=== PATIENT | female | born 1960 | race African-American/Black ===

== ENCOUNTER 2017-02-09 07:42 | Emergency (ER) | payer BC ==
[2017-02-09] MEDS ORDERED: LIDOCAINE 5% (700 MG) TRANSDERMAL ADH..PATCH TP ONE (08:38)
--- NOTE | 2017-02-09 08:38 | ER Document Report ---
ED General - General Chief Complaint: Knee Pain Stated Complaint: RIGHT KNEE PAIN/INJURY TRAVEL OUTSIDE OF THE [place] IN LAST 30 DAYS: No - HPI Patient complains to provider of: right knee pain Notes: Patient states she was walking in her house today when she hit the door to her oven causing her to have some pain in her right knee. Patient also has a slight abrasion this patient states continues to bleed. Upon my evaluation patient patient is sitting with her right leg elevated - Related Data Allergies/Adverse Reactions: aspirin [Aspirin] Allergy (Verified 02/09/17 07:47) STOMACH PAIN ibuprofen [From Motrin] Allergy (Verified 02/09/17 07:47) STOMACH PAIN iodine [Iodine] Allergy (Verified 02/09/17 07:47) Hives morphine [Morphine] Allergy (Verified 02/09/17 07:47) Generalized Itching acetaminophen [From Percocet] Adverse Reaction (Verified 02/09/17 07:47) Hallucinations meloxicam [From Mobic] Adverse Reaction (Verified 02/09/17 07:47) STOMACH PAIN oxycodone [From Percocet] Adverse Reaction (Verified 02/09/17 07:47) Hallucinations ivp dye Allergy (Uncoded 02/09/17 07:47) Hives Past Medical History - Social History Smoking Status: Current Every Day Smoker Chew tobacco use (# tins/day): No Frequency of alcohol use: None Drug Abuse: None Family History: Reviewed & Not Pertinent, CAD - Past Medical History Cardiac Medical History: Reports: Hx Hypercholesterolemia Denies: Hx Coronary Artery Disease, Hx Heart Attack, Hx Hypertension Pulmonary Medical History: Reports: Hx Bronchitis Denies: Hx Asthma, Hx COPD, Hx Pneumonia Neurological Medical History: Denies: Hx Cerebrovascular Accident, Hx Seizures Renal/ Medical History: Denies: Hx Peritoneal Dialysis GI Medical History: Reports: Hx Gastroesophageal Reflux Disease Musculoskeltal Medical History: Denies Hx Arthritis Psychiatric Medical History: Denies: Hx Depression Past Surgical History: Reports: Hx Appendectomy, Hx Breast Surgery - biopsy x 3 , Hx Cholecystectomy, Hx Hysterectomy - Immunizations Hx Diphtheria, Pertussis, Tetanus Vaccination: Yes Review of Systems - Review of Systems Constitutional: No symptoms reported EENT: No symptoms reported Cardiovascular: No symptoms reported Respiratory: No symptoms reported Gastrointestinal: No symptoms reported Genitourinary: No symptoms reported Female Genitourinary: No symptoms reported Musculoskeletal: Other - Right knee pain Skin: No symptoms reported Hematologic/Lymphatic: No symptoms reported Neurological/Psychological: No symptoms reported Physical Exam - Vital signs Vitals: Temp Pulse Resp BP Pulse Ox 98.1 F 83 24 H 150/75 H 97 02/09/17 07:46 02/09/17 07:46 02/09/17 07:46 02/09/17 07:46 02/09/17 07:46 Interpretation: Normal - General General appearance: Appears well, Alert - HEENT Head: Normocephalic, Atraumatic Eyes: Normal Pupils: PERRL - Respiratory Respiratory status: No respiratory distress Chest status: Nontender Breath sounds: Normal Chest palpation: Normal - Cardiovascular Rhythm: Regular Heart sounds: Normal auscultation Murmur: No - Abdominal Inspection: Normal Distension: No distension Bowel sounds: Normal Tenderness: Nontender Organomegaly: No organomegaly - Back Back: Normal, Nontender - Extremities General upper extremity: Normal inspection, Nontender, Normal color, Normal ROM , Normal temperature General lower extremity: Nontender, Normal color, Normal ROM, Normal temperature , Normal weight bearing. No: Normal inspection - Patient with a 1 cm laceration /abrasion superficial at the inferior end of the patella above the patella tendon with no active bleeding at this time, Ron's sign - Neurological Neuro grossly intact: Yes Cognition: Normal Orientation: AAOx4 [place] Coma Scale Eye Opening: Spontaneous [place] Coma Scale Verbal: Oriented Karen Coma Scale Motor: Obeys Commands [place] Coma Scale Total: 15 Speech: Normal Motor strength normal: LUE, RUE, LLE, RLE Sensory: Normal - Psychological Associated symptoms: Normal affect, Normal mood - Skin Skin Temperature: Warm Skin Moisture: Dry Skin Color: Normal Course - Re-evaluation Re-evalutation: 02/09/17 16:01 Patient able to ambulate no signs of any significant pathology patient will be discharged home - Vital Signs Vital signs: Temp Pulse Resp BP Pulse Ox 98.1 F 76 18 146/60 H 98 02/09/17 07:46 02/09/17 08:55 02/09/17 08:55 02/09/17 08:55 02/09/17 08:55 Discharge - Discharge Clinical Impression: Abrasion of right knee Qualifiers: Encounter type: initial encounter Qualified Code(s): S80.211A - Abrasion, right knee, initial encounter Right knee injury Qualifiers: Encounter type: initial encounter Qualified Code(s): S89.91XA - Unspecified injury of right lower leg, initial encounter Condition: Good Disposition: HOME, SELF-CARE Instructions: Abrasions ([facility]) Additional Instructions: Please continue to apply antibiotic ointment to the abrasion.
[2017-02-09 08:57] VITALS: BP 146/60
== END 2017-02-09 08:55 | disposition home or self-care (01) ==
LOC: ER 07:42
DX: S80.211A Abrasion, right knee, initial encounter (principal); S89.91XA Unspecified injury of right lower leg, initial encounter; M25.561 Pain in right knee; X58.XXXA Exposure to other specified factors, initial encounter; F17.200 Nicotine dependence, unspecified, uncomplicated
CPT/HCPCS: 99283

== ENCOUNTER 2017-09-14 04:38 | Emergency (ER) | payer BC ==
[2017-09-14] MEDS ORDERED: HYDROMORPHONE HCL INJ/PF 2 MG/ML AMPULE IV ONE (05:13)
[2017-09-14] MEDS ORDERED: ONDANSETRON HCL INJ/PF 4 MG/2 ML SDV IV ONE (05:14)
[2017-09-14] MEDS ORDERED: NORMAL SALINE 1000 ML 1,000 ML IV ONE (05:15)
[2017-09-14 05:20] LABS: ABSOLUTE BASOPHILS # (AUTO) 0.1 10^3/uL (0.0-0.2); ABSOLUTE EOSINOPHILS # (AUTO) 0.1 10^3/uL (0.0-0.6); ABSOLUTE MONOCYTES (AUTO) 0.6 10^3/uL (0.1-1.4); ABSOLUTE NEUT (AUTO) 3.8 10^3/uL (1.7-8.2); BASOPHILS % (AUTO) 1.2 % (0-2); EOSINOPHILS % (AUTO) 1.7 % (0-6); HEMATOCRIT 39.9 % (36.0-47.0); HEMOGLOBIN 13.6 g/dL (12.0-15.5); HGB HCT DIFFERENCE 0.9; LYMPHOCYTES % (AUTO) 46.6 % (13-45); MEAN CORPUSCULAR HEMOGLOBIN 28.8 pg (27.0-33.4); MEAN CORPUSCULAR HGB CONC 34.2 g/dL (32.0-36.0); MEAN CORPUSCULAR VOLUME 84 fl (80-97); MONOCYTES % (AUTO) 6.6 % (3-13); RED BLOOD COUNT 4.73 10^6/uL (3.72-5.28); SEGMENTED NEUTROPHILS % (AUTO) 43.9 % (42-78); WHITE BLOOD COUNT 8.7 10^3/uL (4.0-10.5)
[2017-09-14 05:40] LABS: ALANINE AMINOTRANSFERASE 24 U/L (9-52); ALBUMIN 4.5 g/dL (3.5-5.0); ALKALINE PHOSPHATASE 152 U/L (38-126); ANION GAP 13 (5-19); ASPARTATE AMINO TRANSFERASE 22 U/L (14-36); BILIRUBIN,DIRECT 0.3 mg/dL (0.0-0.4); BILIRUBIN,TOTAL 0.4 mg/dL (0.2-1.3); BLOOD UREA NITROGEN 18 mg/dL (7-20); CARBON DIOXIDE 23 mmol/L (22-30); CHLORIDE 107 mmol/L (98-107); CREATININE RESULT 0.87 mg/dL (0.52-1.25); GLUCOSE 110 mg/dL (75-110); LIPASE 430.2 U/L (23-300); POTASSIUM 4.5 mmol/L (3.6-5.0); SODIUM 142.5 mmol/L (137-145); TOTAL PROTEIN 7.9 g/dL (6.3-8.2)
--- NOTE | 2017-09-14 06:54 | ER Document Report ---
ED General - General Chief Complaint: Epigastric Pain Stated Complaint: ABDOMINAL PAIN Time Seen by Provider: 09/14/17 05:01 Mode of Arrival: Ambulatory Information source: Patient Notes: Patient is a 57-year-old female comes emergency room complaining of "pancreatic pain. Patient states she has a history of pancreatitis last bout was approximately 2 years ago. States this 1 has been developing for the past 2 days and has progressively gotten worse to where she had a hard time keeping foods down. TRAVEL OUTSIDE OF THE [place] IN LAST 30 DAYS: No - HPI Patient complains to provider of: Abdominal discomfort Onset/Duration: Gradual, Constant Quality of pain: Achy Severity: Moderate Pain Level: 2 Associated symptoms: Nausea, Vomiting Exacerbated by: Food Relieved by: Other - N.p.o. Similar symptoms previously: Yes Recently seen / treated by doctor: No - Related Data Allergies/Adverse Reactions: aspirin [Aspirin] Allergy (Verified 09/14/17 04:40) STOMACH PAIN ibuprofen [From Motrin] Allergy (Verified 09/14/17 04:40) STOMACH PAIN iodine [Iodine] Allergy (Verified 09/14/17 04:40) Hives morphine [Morphine] Allergy (Verified 09/14/17 04:40) Generalized Itching acetaminophen [From Percocet] Adverse Reaction (Verified 09/14/17 04:40) Hallucinations meloxicam [From Mobic] Adverse Reaction (Verified 09/14/17 04:40) STOMACH PAIN oxycodone [From Percocet] Adverse Reaction (Verified 09/14/17 04:40) Hallucinations ivp dye Allergy (Uncoded 02/09/17 07:47) Hives Past Medical History - General Information source: Patient - Social History Smoking Status: Current Every Day Smoker Frequency of alcohol use: None Drug Abuse: None Lives with: Alone Family History: Reviewed & Not Pertinent, CAD Patient has suicidal ideation: No Patient has homicidal ideation: No - Past Medical History Cardiac Medical History: Reports: Hx Hypercholesterolemia Denies: Hx Coronary Artery Disease, Hx Heart Attack, Hx Hypertension Pulmonary Medical History: Reports: Hx Bronchitis Denies: Hx Asthma, Hx COPD, Hx Pneumonia Neurological Medical History: Denies: Hx Cerebrovascular Accident, Hx Seizures Renal/ Medical History: Denies: Hx Peritoneal Dialysis GI Medical History: Reports: Hx Gastroesophageal Reflux Disease Musculoskeltal Medical History: Denies Hx Arthritis Psychiatric Medical History: Denies: Hx Depression Past Surgical History: Reports: Hx Appendectomy, Hx Breast Surgery - biopsy x 3 , Hx Cholecystectomy, Hx Hysterectomy - Immunizations Hx Diphtheria, Pertussis, Tetanus Vaccination: Yes Review of Systems - Review of Systems Constitutional: No symptoms reported EENT: See HPI Cardiovascular: No symptoms reported Respiratory: No symptoms reported Gastrointestinal: Abdominal pain, Nausea, Vomiting, Poor appetite Genitourinary: No symptoms reported Female Genitourinary: No symptoms reported Musculoskeletal: No symptoms reported Skin: No symptoms reported Hematologic/Lymphatic: No symptoms reported Neurological/Psychological: No symptoms reported -: Yes All other systems reviewed and negative Physical Exam - Vital signs Vitals: Temp Pulse Resp BP Pulse Ox 97.8 F 81 20 157/66 H 98 09/14/17 04:40 09/14/17 04:40 09/14/17 04:40 09/14/17 04:40 09/14/17 04:40 - General General appearance: Appears well, Alert In distress: None - HEENT Head: Normocephalic, Atraumatic Mucous membranes: Dry - Respiratory Respiratory status: No respiratory distress Chest status: Nontender Breath sounds: Normal Chest palpation: Normal - Cardiovascular Rhythm: Regular Heart sounds: Normal auscultation Murmur: No - Abdominal Distension: No distension Bowel sounds: Normal Tenderness: Tender, Other - Examination the abdomen shows patient has some mild tenderness increase in left upper quadrant and left side as compared to the right. History of appendectomy partial hysterectomy and cystectomy - Genitourinary External exam: Normal - Back Back: Normal, Nontender - Neurological Cognition: Normal Orientation: AAOx4 Karen Coma Scale Eye Opening: Spontaneous Karen Coma Scale Verbal: Oriented Karen Coma Scale Motor: Obeys Commands Karen Coma Scale Total: 15 Speech: Normal Course - Re-evaluation Re-evalutation: 09/14/17 06:55 Patient improved dramatically on pain medications and called her friend him take her home. Her lipase is only slightly elevated above [address] it with Dr. Gabriel and agrees that at this point with patient feeling better nausea under control pain much better we can syndrome as an outpatient trial. I discussed this with the patient as well she is in total agreement. I will send her home on 2 nausea medications with the Zofran and promethazine and give her some pain medication. She will keep on clear liquids for the next 48 hours and will return if she gets worse. - Vital Signs Vital signs: Temp Pulse Resp BP Pulse Ox 97.6 F 63 18 111/52 L 95 09/14/17 07:01 09/14/17 07:01 09/14/17 07:01 09/14/17 07:01 09/14/17 07:01 - Laboratory Result Diagrams: 09/14/17 05:12 09/14/17 05:12 Laboratory results interpreted by me: 09/14/17 09/14/17 05:12 05:12 Lymphocytes % 46.6 H Alkaline Phosphatase 152 H Lipase 430.2 H Discharge - Discharge Clinical Impression: Abdominal pain Qualifiers: Abdominal location: left upper quadrant Qualified Code(s): R10.12 - Left upper quadrant pain Pancreatitis Qualifiers: Chronicity: acute Pancreatitis type: biliary Acute pancreatitis complication: unspecified Qualified Code(s): K85.10 - Biliary acute pancreatitis without necrosis or infection Disposition: HOME, SELF-CARE Instructions: Abdominal Pain ([facility]), Pancreatitis ([facility]) Additional Instructions: Home and rest. As we discussed you just have a slight elevation in her lipase really difficult to collect full-blown pancreatitis. This point was sent home on some antinausea medication pain medication. Clear liquids for the next 48 hours as we discussed and is also we have discussed return to ER if you have increasing pain increasing vomiting or unable to keep food or fluids down. Prescriptions: Ondansetron [Zofran Odt 4 mg Tablet] 1 - 2 tab PO Q4HP PRN #20 tab.rapdis PRN Reason: Oxycodone HCl/Acetaminophen [Percocet 7.5-325 mg Tablet] 1 each PO Q6 PRN #15 tablet PRN Reason: Promethazine HCl 25 mg PO Q4 #20 tablet Forms: Elevated Blood Pressure
[2017-09-14 07:02] VITALS: BP 111/52
[2017-09-14 07:07] LABS: APPEARANCE,URINE CLEAR; BILIRUBIN,URINE NEGATIVE (NEGATIVE); GLUCOSE, URINE NEGATIVE (NEGATIVE); KETONES,URINE NEGATIVE (NEGATIVE); LEUKOCYTE ESTERASE,URINE NEGATIVE (NEGATIVE); NITRITE,URINE NEGATIVE (NEGATIVE); PROTEIN,URINE NEGATIVE (NEGATIVE); URINE SPECIFIC GRAVITY 1.015; UROBILINOGEN,URINE NEGATIVE mg/dL (<2.0)
--- NOTE | 2017-09-14 13:45 | EKG REPORT ---
SEVERITY:- ABNORMAL ECG - SINUS RHYTHM PROMINENT P WAVES, NONDIAGNOSTIC LVH WITH SECONDARY REPOLARIZATION ABNORMALITY BORDERLINE PROLONGED QT INTERVAL : Confirmed by: Lee Corona 14-Sep-2017 13:45:28
== END 2017-09-14 07:04 | disposition home or self-care (01) ==
LOC: ER 04:38
DX: K85.10 Biliary acute pancreatitis without necrosis or infection (principal); R10.12 Left upper quadrant pain; R10.13 Epigastric pain
CPT/HCPCS: 93005; 99284; 96361; 96374; 96375; 36415; 83690; 85025; 80053; 81001; 93010; J1170; J2405; J7030

== ENCOUNTER → 2018-06-13 | Outpatient (CLI) | payer BC ==
--- NOTE | 2018-06-13 10:31 | RADIOLOGY REPORT (SQ) ---
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 TECHNIQUE: Dynamic and static ye-scale images acquired of the thyroid gland. Selected additional c olor/power Doppler images recorded. All images stored to PACS. LIMITATIONS: None. FINDINGS: RIGHT LOBE: 3.7 cm Homogeneous echotexture. Small colloid cysts. Largest under 5 mm. LEFT LOBE: 3.7 cm Homogeneous echotexture. Small colloid cysts. ISTHMUS: Normal size. Homogeneous echotexture. No cystic or solid masses. OTHER: No other significant finding. IMPRESSION: Normal size gland. Small colloid cyst. TECHNICAL DOCUMENTATION: JOB ID: [id number] [employer]- All Rights Reserved Reading location - IP/workstation name: [email or web address]
== END ==
LOC: RAD 09:07
PROVIDERS: ATTEND Internal Medicine
DX: E04.9 Nontoxic goiter, unspecified (principal)
CPT/HCPCS: 76536

== ENCOUNTER → 2018-06-13 | Outpatient (CLI) | payer BC ==
[2018-06-13 10:25] LABS: ABSOLUTE EOSINOPHILS # (AUTO) 0.1 10^3/uL (0.0-0.6); ABSOLUTE LYMPHOCYTES (AUTO) 2.8 10^3/uL (0.5-4.7); ABSOLUTE MONOCYTES (AUTO) 0.3 10^3/uL (0.1-1.4); ABSOLUTE NEUT (AUTO) 2.2 10^3/uL (1.7-8.2); BASOPHILS % (AUTO) 0.7 % (0-2); EOSINOPHILS % (AUTO) 2.7 % (0-6); HEMATOCRIT 41.1 % (36.0-47.0); HEMOGLOBIN 13.6 g/dL (12.0-15.5); LYMPHOCYTES % (AUTO) 51.3 % (13-45); MEAN CORPUSCULAR HEMOGLOBIN 27.5 pg (27.0-33.4); MEAN CORPUSCULAR HGB CONC 33.2 g/dL (32.0-36.0); MEAN CORPUSCULAR VOLUME 83 fl (80-97); MONOCYTES % (AUTO) 5.9 % (3-13); PLATELET COUNT 323 10^3/uL (150-450); RED BLOOD COUNT 4.96 10^6/uL (3.72-5.28); RED CELL DISTRIBUTION WIDTH 14.1 % (11.5-14.0); SEGMENTED NEUTROPHILS % (AUTO) 39.4 % (42-78); TOTAL CELLS COUNTED % (AUTO) 100 %; WHITE BLOOD COUNT 5.5 10^3/uL (4.0-10.5)
[2018-06-13 10:36] LABS: ALANINE AMINOTRANSFERASE 26 U/L (9-52); ALBUMIN 4.2 g/dL (3.5-5.0); ALKALINE PHOSPHATASE 140 U/L (38-126); ANION GAP 11 (5-19); ASPARTATE AMINO TRANSFERASE 23 U/L (14-36); BILIRUBIN,DIRECT 0.3 mg/dL (0.0-0.4); BILIRUBIN,TOTAL 0.4 mg/dL (0.2-1.3); BLOOD UREA NITROGEN 16 mg/dL (7-20); CALCIUM 10.1 mg/dL (8.4-10.2); CARBON DIOXIDE 27 mmol/L (22-30); CHLORIDE 107 mmol/L (98-107); GLUCOSE 110 mg/dL (75-110); POTASSIUM 4.5 mmol/L (3.6-5.0); SODIUM 144.6 mmol/L (137-145); TOTAL PROTEIN 7.8 g/dL (6.3-8.2)
[2018-06-13 10:49] LABS: FREE T3 3.85 pg/mL (2.77-5.27); FREE T4 (FREE THYROXINE) 1.04 ng/dL (0.78-2.19)
[2018-06-13 11:03] LABS: THYROID STIMULATING HORMONE 1.16 uIU/mL (0.47-4.68)
[2018-06-13 11:22] LABS: ERYTHROCYTE SEDIMENTATION RATE 16 mm/hr (0-30)
== END ==
LOC: LAB 09:58
PROVIDERS: ATTEND Internal Medicine
DX: Z68.39 Body mass index [BMI] 39.0-39.9, adult (principal)
CPT/HCPCS: 36415; 80053; 83036; 84439; 84443; 84481; 85025; 85652

== ENCOUNTER 2018-08-31 23:20 | Emergency (ER) | payer BC ==
--- NOTE | 2018-08-31 23:52 | ER Document Report ---
ED GI/ - General Mode of Arrival: Ambulatory Information source: Patient TRAVEL OUTSIDE OF THE [place] IN LAST 30 DAYS: No <CELENA FALL - Last Filed: 09/01/18 01:00> <GABE CORDERO - Last Filed: 09/01/18 02:25> - General Chief Complaint: Abdominal Pain Stated Complaint: ABDOMINAL PAIN Time Seen by Provider: 08/31/18 23:42 Notes: Patient is a 58-year-old female who presents to the emergency department today with complaints of upper abdominal pain with associated nausea which began 3 days ago. Patient states she has a history of chronic pancreatitis. Patient states she last had alcohol approximately 3 weeks ago. Patient mentions that she had diarrhea last week but has not had any this week. Patient denies anything unusual about her epigastric abdominal pain stating it feels like her usual pancreatitis. (CELENA FALL) - Related Data Allergies/Adverse Reactions: aspirin [Aspirin] Allergy (Verified 09/25/17 10:12) STOMACH PAIN ibuprofen [From Motrin] Allergy (Verified 09/25/17 10:12) STOMACH PAIN iodine [Iodine] Allergy (Verified 09/25/17 10:12) Hives morphine [Morphine] Allergy (Verified 09/25/17 10:12) Generalized Itching acetaminophen [From Percocet] Adverse Reaction (Verified 09/25/17 10:12) Hallucinations meloxicam [From Mobic] Adverse Reaction (Verified 09/25/17 10:12) STOMACH PAIN ivp dye Allergy (Uncoded 09/25/17 10:12) Hives Past Medical History - General Information source: Patient - Social History Smoking Status: Current Every Day Smoker Cigarette use (# per day): Yes Frequency of alcohol use: Occasional Drug Abuse: None Lives with: Family Family History: Reviewed & Not Pertinent, CAD - Past Medical History Cardiac Medical History: Reports: Hx Hypercholesterolemia Pulmonary Medical History: Reports: Hx Bronchitis GI Medical History: Reports: Hx Gastroesophageal Reflux Disease, Hx Pancreatitis - chronic Past Surgical History: Reports: Hx Appendectomy, Hx Breast Surgery - biopsy x 3 , Hx Cholecystectomy, Hx Hysterectomy - Immunizations Hx Diphtheria, Pertussis, Tetanus Vaccination: Yes <CELENA FALL - Last Filed: 09/01/18 01:00> Review of Systems - Review of Systems Constitutional: No symptoms reported EENT: No symptoms reported Cardiovascular: No symptoms reported Respiratory: No symptoms reported Gastrointestinal: See HPI, Abdominal pain, Diarrhea - last week, Nausea. denies : Blood in vomit Genitourinary: No symptoms reported Female Genitourinary: No symptoms reported Musculoskeletal: No symptoms reported Skin: No symptoms reported Hematologic/Lymphatic: No symptoms reported Neurological/Psychological: No symptoms reported -: Yes All other systems reviewed and negative <CELENA FALL - Last Filed: 09/01/18 01:00> Physical Exam <CELENA FALL - Last Filed: 09/01/18 01:00> <GABE CORDERO - Last Filed: 09/01/18 02:25> - Vital signs Vitals: Temp Pulse Resp BP Pulse Ox 98.6 F 72 20 136/48 H 95 08/31/18 23:25 08/31/18 23:25 08/31/18 23:25 08/31/18 23:25 08/31/18 23:25 - Notes Notes: PHYSICAL EXAM GENERAL: Alert, interacts well. No acute distress. HEAD: Normocephalic, atraumatic. EYES: Pupils equal, round, and reactive to light. Extraocular movements intact. ENT: Oral mucosa moist, tongue midline. NECK: Full range of motion. Supple. Trachea midline. LUNGS: Clear to auscultation bilaterally, no wheezes, rales, or rhonchi. No respiratory distress. HEART: Regular rate and rhythm. 1/6 systolic ejection murmur. No gallops or rubs. ABDOMEN: Soft, epigastric tenderness with palpation. Non-distended. Bowel sounds present in all 4 quadrants. No guarding, rigidity, or rebound. EXTREMITIES: Moves all 4 extremities spontaneously. No edema, radial and dorsalis pedis pulses 2/4 bilaterally. No cyanosis. NEUROLOGICAL: Alert and oriented x3. Normal speech. PSYCH: Normal affect, normal mood. SKIN: Warm, dry, normal turgor. No rashes or lesions noted. (CELENA FALL) Course - Laboratory Result Diagrams: 09/01/18 00:12 09/01/18 00:12 <CELENA FALL - Last Filed: 09/01/18 01:00> - Laboratory Result Diagrams: 09/01/18 00:12 09/01/18 00:12 <GABE CORDERO - Last Filed: 09/01/18 02:25> - Re-evaluation Re-evalutation: 09/01/18 01:33 CBC unremarkable, CMP shows slightly elevated BUN at 23, cardiac enzymes negative, lipase normal at 292.3, troponin negative, EKG is unchanged from prior patient has had no further vomiting here, states she feels significantly better after pain medication, fluids and antinausea medication. Patient will be trialed on grape juice and if she is able to tolerate this discharged home with pain medication and nausea medication. Counseled on chronic pancreatitis diet. 09/01/18 02:19 Urinalysis has trace leukocyte esterase, symptoms not consistent with urinary tract infection, sent for culture. Discharge to home with antiemetics and Vicodin. (GABE CORDERO) - Vital Signs Vital signs: Temp Pulse Resp BP Pulse Ox 98.6 F 72 20 136/48 H 95 08/31/18 23:25 08/31/18 23:25 08/31/18 23:25 08/31/18 23:25 08/31/18 23:25 - Laboratory Laboratory results interpreted by me: 09/01/18 09/01/18 09/01/18 00:12 00:12 01:33 RDW 15.3 H Lymphocytes % 45.9 H BUN 23 H Est GFR ( Amer) 54 L Est GFR (Non-Af Amer) 45 L Glucose 119 H Calcium 10.3 H Ur Leukocyte Esterase TRACE H - EKG Interpretation by Me Additional EKG results interpreted by me: 09/01/18 01:33 EKG shows sinus rhythm at a rate of 64, left axis deviation, prolonged QT interval, slight ST segment depression in lead I, lead II, V5 and V6 which is unchanged from prior EKG on 09/15/2017, this appears to be secondary to LVH, there are T wave inversions in leads I, II, aVL, V5 and V6, no ST segment elevations per my interpretation. (GABE CORDERO) Discharge <CELENA FALL - Last Filed: 09/01/18 01:00> <GABE CORDERO - Last Filed: 09/01/18 02:25> - Discharge Clinical Impression: Pancreatitis, recurrent Condition: Stable Disposition: HOME, SELF-CARE Additional Instructions: Pancreatitis Pancreatitis is an inflammation of the pancreas, an organ at the back of your abdomen. The pancreas produces insulin and enzymes that digest your food. Pancreatitis can be caused by gallstones in the bile duct, by alcohol or viruses, or by excess fat or calcium in the blood stream. Occasionally, pancreatitis occurs when a stomach ulcer reese through into the pancreas. We try to find the cause of pancreatitis, but some tests can't be done until the pancreas heals. The usual symptoms of pancreatitis are pain in the pit of the stomach that goes straight through to the back, vomiting, and low-grade fever. Severe cases require hospital admission, but many patients with mild pancreatitis do well at home. You will probably need medicine for pain and for vomiting. Sometimes we prescribe medicine to decrease stomach acid secretion and to decrease flow of pancreatic juices. Start with a diet of clear liquids (soda pop, juices). When the pain is decreasing, you can add some simple starches (potato, toast, applesauce). Avoid proteins and fats until you are completely painfree. When you're better, your doctor may suggest treatment to prevent future pancreatitis (such as gallbladder removal). Avoid alcohol forever. Get immediate treatment for any future episodes. Contact your doctor at once or return here if you have increasing pain, shortness of breath, general swelling, increasing size of the abdomen, continued vomiting, muscle spasms, or other new symptoms. Prescriptions: Ondansetron [Zofran Odt 4 mg Tablet] 1 - 2 tab PO Q4HP PRN #20 tab.rapdis PRN Reason: Promethazine HCl [Phenergan 25 mg Tablet] 25 mg PO Q4HP PRN #20 tablet PRN Reason: Hydrocodone/Acetaminophen [[place] 5-325 mg Tablet] 1 tab PO Q6HP PRN #10 tablet PRN Reason: Forms: Return to Work Referrals: SACHI HOWARD MD [Primary Care Provider] - Follow up in 3-5 days Scribe Attestation: 09/01/18 02:25 I personally performed the services described in the documentation, reviewed and edited the documentation which was dictated to the scribe in my presence, and it accurately records my words and actions. (GABE CORDERO) Scribe Documentation - Scribe Written by Cristina:: Cristina Dodd, 09/01/2018 [id number] acting as scribe for :: Adilson <CELENA FALL - Last Filed: 09/01/18 01:00>
[2018-08-31] MEDS ORDERED: NORMAL SALINE 1000 ML 1,000 ML IV ONE (23:53)
[2018-08-31] MEDS ORDERED: ONDANSETRON HCL INJ/PF 4 MG/2 ML SDV IV ONE (23:53)
[2018-08-31] MEDS ORDERED: HYDROMORPHONE HCL INJ/PF 2 MG/ML AMPULE IV ONE (23:53)
[2018-09-01 00:25] LABS: ABSOLUTE BASOPHILS # (AUTO) 0.1 10^3/uL (0.0-0.2); ABSOLUTE EOSINOPHILS # (AUTO) 0.2 10^3/uL (0.0-0.6); ABSOLUTE LYMPHOCYTES (AUTO) 4.4 10^3/uL (0.5-4.7); ABSOLUTE MONOCYTES (AUTO) 0.5 10^3/uL (0.1-1.4); ABSOLUTE NEUT (AUTO) 4.4 10^3/uL (1.7-8.2); BASOPHILS % (AUTO) 0.7 % (0-2); EOSINOPHILS % (AUTO) 1.8 % (0-6); HEMATOCRIT 40.2 % (36.0-47.0); HEMOGLOBIN 13.4 g/dL (12.0-15.5); LYMPHOCYTES % (AUTO) 45.9 % (13-45); MEAN CORPUSCULAR HEMOGLOBIN 28.6 pg (27.0-33.4); MEAN CORPUSCULAR HGB CONC 33.4 g/dL (32.0-36.0); MEAN CORPUSCULAR VOLUME 86 fl (80-97); MONOCYTES % (AUTO) 5.3 % (3-13); PLATELET COUNT 447 10^3/uL (150-450); RED CELL DISTRIBUTION WIDTH 15.3 % (11.5-14.0); SEGMENTED NEUTROPHILS % (AUTO) 46.3 % (42-78); TOTAL CELLS COUNTED % (AUTO) 100 %; WHITE BLOOD COUNT 9.6 10^3/uL (4.0-10.5)
[2018-09-01 00:37] LABS: ALANINE AMINOTRANSFERASE 13 U/L (9-52); ALBUMIN 4.3 g/dL (3.5-5.0); ALKALINE PHOSPHATASE 105 U/L (38-126); ANION GAP 10 (5-19); ASPARTATE AMINO TRANSFERASE 26 U/L (14-36); BILIRUBIN,DIRECT 0.3 mg/dL (0.0-0.4); BILIRUBIN,TOTAL 0.4 mg/dL (0.2-1.3); BLOOD UREA NITROGEN 23 mg/dL (7-20); CALCIUM 10.3 mg/dL (8.4-10.2); CARBON DIOXIDE 29 mmol/L (22-30); CHLORIDE 102 mmol/L (98-107); GLUCOSE 119 mg/dL (75-110); LIPASE 292.3 U/L (23-300); POTASSIUM 4.4 mmol/L (3.6-5.0); SODIUM 140.5 mmol/L (137-145)
[2018-09-01 02:03] LABS: APPEARANCE,URINE CLEAR; BILIRUBIN,URINE NEGATIVE (NEGATIVE); COLOR,URINE YELLOW; GLUCOSE, URINE NEGATIVE (NEGATIVE); KETONES,URINE NEGATIVE (NEGATIVE); LEUKOCYTE ESTERASE,URINE TRACE (NEGATIVE); NITRITE,URINE NEGATIVE (NEGATIVE); PROTEIN,URINE NEGATIVE (NEGATIVE); URINE SPECIFIC GRAVITY 1.013; UROBILINOGEN,URINE NEGATIVE mg/dL (<2.0)
[2018-09-01 03:38] VITALS: BP 133/61
--- NOTE | 2018-09-01 07:59 | EKG REPORT ---
SEVERITY:- ABNORMAL ECG - SINUS RHYTHM BRADY, CONSIDER BIATRIAL ABNORMALITIES LVH WITH SECONDARY REPOLARIZATION ABNORMALITY BORDERLINE PROLONGED QT INTERVAL : Confirmed by: Sheldon Huff MD 01-Sep-2018 07:58:24
== END 2018-09-01 03:38 | disposition home or self-care (01) ==
LOC: ER 23:20
DX: K86.1 Other chronic pancreatitis (principal); R10.13 Epigastric pain; R10.10 Upper abdominal pain, unspecified; R11.0 Nausea; R19.7 Diarrhea, unspecified; F17.210 Nicotine dependence, cigarettes, uncomplicated
CPT/HCPCS: 93005; 99284; 96361; 96374; 96375; 36415; 87086; 83690; 85025; 80053; 81001; 84484; 93010; J1170; J2405; J7030

== ENCOUNTER 2018-09-07 22:07 | Inpatient (IN) | payer BC ==
[2018-09-07] MEDS ORDERED: HYDROMORPHONE HCL INJ/PF 2 MG/ML AMPULE IV ONE (22:45)
[2018-09-07] MEDS ORDERED: ONDANSETRON HCL INJ/PF 4 MG/2 ML SDV IV ONE (22:45)
[2018-09-07] MEDS ORDERED: NORMAL SALINE 1000 ML 1,000 ML IV ONE (22:46)
--- NOTE | 2018-09-07 22:49 | ER Document Report ---
ED General - General Chief Complaint: Abdominal Pain Stated Complaint: ABDOMINAL PAIN Time Seen by Provider: 09/07/18 22:37 Notes: Patient is a 58-year-old female presents with complaint of severe epigastric pain. She was seen on the . At that time she was diagnosed with pancreatitis 6 patient says this pain feels exactly like her pancreatitis. Her lipase at that time was normal. She also has a history of nonbleeding ulcers. She is followed by Dr. Mobley who is her GI physician. She takes Protonix for this. She says over the last several days she cannot eat or drink without having severe pain. She says she is vomited several times. She can only occasionally hold down fluids. No blood in her emesis. No blood in her stool. No black or tarry stools. She has had previous cholecystectomy. Previous records say that there is some history of some alcohol use but patient says her alcohol use is only occasional. She has not drank alcohol in over 4 weeks. TRAVEL OUTSIDE OF THE [place] IN LAST 30 DAYS: No - Related Data Allergies/Adverse Reactions: aspirin [Aspirin] Allergy (Verified 09/25/17 10:12) STOMACH PAIN ibuprofen [From Motrin] Allergy (Verified 09/25/17 10:12) STOMACH PAIN iodine [Iodine] Allergy (Verified 09/25/17 10:12) Hives morphine [Morphine] Allergy (Verified 09/25/17 10:12) Generalized Itching acetaminophen [From Percocet] Adverse Reaction (Verified 09/25/17 10:12) Hallucinations meloxicam [From Mobic] Adverse Reaction (Verified 09/25/17 10:12) STOMACH PAIN ivp dye Allergy (Uncoded 09/25/17 10:12) Hives Past Medical History - Social History Smoking Status: Unknown if Ever Smoked Frequency of alcohol use: Occasional Drug Abuse: None Family History: Reviewed & Not Pertinent, CAD - Past Medical History Cardiac Medical History: Reports: Hx Hypercholesterolemia Denies: Hx Coronary Artery Disease, Hx Heart Attack, Hx Hypertension Pulmonary Medical History: Reports: Hx Bronchitis Denies: Hx Asthma, Hx COPD, Hx Pneumonia Neurological Medical History: Denies: Hx Cerebrovascular Accident, Hx Seizures Renal/ Medical History: Denies: Hx Peritoneal Dialysis GI Medical History: Reports: Hx Gastroesophageal Reflux Disease, Hx Pancreatitis - chronic Musculoskeletal Medical History: Denies Hx Arthritis Psychiatric Medical History: Denies: Hx Depression Past Surgical History: Reports: Hx Appendectomy, Hx Breast Surgery - biopsy x 3 , Hx Cholecystectomy, Hx Hysterectomy - Immunizations Hx Diphtheria, Pertussis, Tetanus Vaccination: Yes Review of Systems - Review of Systems Notes: My Normal Review Basic REVIEW OF SYSTEMS: CONSTITUTIONAL : Denies fever, chills, or sweats. Denies recent illness. CARDIOVASCULAR: Denies chest pain. RESPIRATORY: Denies cough, cold, or chest congestion. Denies shortness of breath, difficulty breathing, or wheezing. GASTROINTESTINAL: Severe epigastric abdominal pain. recurrent vomiting GENITOURINARY: Denies difficulty urinating, painful urination, burning, frequency, or blood in urine. MUSCULOSKELETAL: Denies neck or back pain or joint pain or swelling. SKIN: Denies rash or skin lesions. NEUROLOGICAL: Denies altered mental status or loss of consciousness. Denies headache. Denies weakness or paralysis or loss of use of either side. Denies problems with gait or speech. Denies sensory or motor loss. ALL OTHER SYSTEMS REVIEWED AND NEGATIVE. Physical Exam - Vital signs Vitals: Temp Pulse Resp BP Pulse Ox 98.4 F 92 20 147/63 H 98 09/07/18 22:24 09/07/18 22:24 09/07/18 22:24 09/07/18 22:24 09/07/18 22:24 - Notes Notes: General Appearance: Well nourished, alert, cooperative, no acute distress, moderate obvious discomfort. Vitals: reviewed, See vital signs table. Head: no swelling or tenderness to the head Eyes: PERRL, EOMI, Conjuctiva clear Mouth: No decreasd moisture Lungs: No wheezing, No rales, No rhonci, No accessory muscle use, good air exchange bilaterally. Heart: Normal rate, Regular rythm, No murmur, no rub Abdomen: Normal BS, soft, No rigidity, moderate epigastric and left upper quadrant abdominal tenderness to palpation. Remainder of abdomen is nontender. , Some epigastric guarding, no rebound, no abdominal masses, no organomegaly Extremities: good pulses in all extremities, no swelling or tenderness in the extremities, no edema. Skin: warm, dry, appropriate color, no rash Neuro: speech clear, oriented x 3, normal affect, responds appropriately to questions. Course - Re-evaluation Re-evalutation: 09/08/18 01:35 I suspect that the patient's pain is most likely related to a nonbleeding ulcer or severe gastritis. I base this on the fact that the patient's last visit here showed a normal lipase. Now her lipase is just very minimally elevated at 500 and this is after 5 days of vomiting. Lipase elevation is most likely is related to the vomiting itself. Last time she was admitted for pancreatitis the the CT scan because at that time showed a mildly elevated lipase as well and CT scan showed no evidence of inflammation around the pancreas suggesting that this is not pancreatitis. She has a history of ulcers and is followed by Dr. Mobley. Her pain occurs even with just drinking liquids. She says anything that hurts her stomach causes pain suggesting that this is more of a upper GI cause. Being the patient has had recurrent vomiting now for 5 days And her hemoglobin and hematocrit are increased from before suggesting hemoconcentration from dehydration I felt appropriate to admit the patient as she shows some signs of dehydration and is unable to hold down significant amounts of liquids or any food. I did speak with the hospitalist, , who agrees to evaluate the patient for consideration for admission. Dictation of this chart was performed using voice recognition software; therefore, there may be some unintended grammatical errors. - Vital Signs Vital signs: Temp Pulse Resp BP Pulse Ox 98.4 F 92 20 147/63 H 98 09/07/18 22:24 09/07/18 22:24 09/07/18 22:24 09/07/18 22:24 09/07/18 22:24 - Laboratory Result Diagrams: 09/07/18 23:10 09/07/18 23:10 Laboratory results interpreted by me: 09/07/18 09/07/18 23:10 23:10 RBC 5.68 H Hgb 16.1 H Hct 47.7 H RDW 14.3 H Plt Count 469 H BUN 23 H Est GFR ( Amer) 58 L Est GFR (Non-Af Amer) 48 L Glucose 139 H Calcium 10.8 H AST 37 H Alkaline Phosphatase 183 H Total Protein 9.6 H Lipase 545.5 H - EKG Interpretation by Me Additional EKG results interpreted by me: 09/07/18 23:56 EKG EKG is reviewed and interpreted by me. EKG shows sinus rhythm with a rate of [address] segment elevation or depression. No ischemic T wave inversions. MN interval, QRS duration are within normal range. QT interval slightly prolonged. Old EKG for comparison is from September 01, 2018. 09/07/18 23:56 Discharge - Discharge Clinical Impression: Abdominal pain Qualifiers: Abdominal location: epigastric Qualified Code(s): R10.13 - Epigastric pain Vomiting Qualifiers: Vomiting type: unspecified Vomiting Intractability: intractable Nausea presence : with nausea Qualified Code(s): R11.2 - Nausea with vomiting, unspecified Condition: Stable Disposition: ADMITTED OBSERVATION Admitting Provider: Hospitalist Unit Admitted: Medical Floor Referrals: SACHI HOWARD MD [Primary Care Provider] - Follow up as needed
[2018-09-07 23:39] LABS: ALANINE AMINOTRANSFERASE 21 U/L (9-52); ALBUMIN 4.8 g/dL (3.5-5.0); ALKALINE PHOSPHATASE 183 U/L (38-126); ANION GAP 12 (5-19); ASPARTATE AMINO TRANSFERASE 37 U/L (14-36); BILIRUBIN,DIRECT 0.4 mg/dL (0.0-0.4); BILIRUBIN,TOTAL 0.9 mg/dL (0.2-1.3); BLOOD UREA NITROGEN 23 mg/dL (7-20); CALCIUM 10.8 mg/dL (8.4-10.2); CARBON DIOXIDE 25 mmol/L (22-30); CHLORIDE 103 mmol/L (98-107); GLUCOSE 139 mg/dL (75-110); LIPASE 545.5 U/L (23-300); POTASSIUM 4.3 mmol/L (3.6-5.0); SODIUM 139.5 mmol/L (137-145); TOTAL PROTEIN 9.6 g/dL (6.3-8.2)
[2018-09-07 23:46] LABS: ABSOLUTE BASOPHILS # (AUTO) 0.1 10^3/uL (0.0-0.2); ABSOLUTE EOSINOPHILS # (AUTO) 0.1 10^3/uL (0.0-0.6); ABSOLUTE LYMPHOCYTES (AUTO) 3.7 10^3/uL (0.5-4.7); ABSOLUTE MONOCYTES (AUTO) 0.7 10^3/uL (0.1-1.4); ABSOLUTE NEUT (AUTO) 5.9 10^3/uL (1.7-8.2); BASOPHILS % (AUTO) 0.8 % (0-2); EOSINOPHILS % (AUTO) 0.5 % (0-6); HEMATOCRIT 47.7 % (36.0-47.0); HEMOGLOBIN 16.1 g/dL (12.0-15.5); LYMPHOCYTES % (AUTO) 35.4 % (13-45); MEAN CORPUSCULAR HEMOGLOBIN 28.4 pg (27.0-33.4); MEAN CORPUSCULAR HGB CONC 33.8 g/dL (32.0-36.0); MEAN CORPUSCULAR VOLUME 84 fl (80-97); MONOCYTES % (AUTO) 6.3 % (3-13); PLATELET COUNT 469 10^3/uL (150-450); RED BLOOD COUNT 5.68 10^6/uL (3.72-5.28); RED CELL DISTRIBUTION WIDTH 14.3 % (11.5-14.0); TOTAL CELLS COUNTED % (AUTO) 100 %; WHITE BLOOD COUNT 10.4 10^3/uL (4.0-10.5)
[2018-09-07] MEDS ORDERED: PANTOPRAZOLE SODIUM 40 MG VIAL IV ONE (23:57)
[2018-09-08] MEDS ORDERED: TEMAZEPAM 7.5 MG CAPSULE PO PRN (01:41)
[2018-09-08] MEDS ORDERED: MAG HYDROX/AL HYDROX/SIMETH SUSP 30 ML UDCUP PO PRN (01:41)
[2018-09-08] MEDS ORDERED: PROMETHAZINE HCL 25 MG TABLET PO PRN (01:41)
--- NOTE | 2018-09-08 02:14 | PDOC H&P ---
History of Present Illness Admission Date/PCP: 09/08/18 01:46 SACHI HOWARD MD Patient complains of: acute pancreatitis History of Present Illness: FLORENCE GR is a 58 year old female with history of intermittent pancreatitis for at least 10 years comes to the emergency department complaining of abdominal pain. Her symptoms started about a week ago with epigastric pain radiated to her back, up to 10/10 intensity, she describes the pain as "just hurt", very mild dizziness. Refers the pain as typical for her pancreatitis. Pain is associated with oral intake for liquids and solid. Denies fever or chills, denies shortness of breath, she had loose bowel movement before coming to the hospital which is normal for her, denies dysuria, hematuria frequency however refers her urine as dark. Complains of feeling dry and weak. Patient drinks alcohol occasionally, last time a month ago with beers. Patient is also a smoker. Patient was in our facility last Saturday and her lipase was 292, she was sent home with recommendations. Tells me that the pain did not improve and got worse last . Patient had his last EGD about 3 months ago and she was told that she has stomach ulcers, was initiated on pantoprazole. Follows with Dr. Mobley. In the emergency department given 0.5 of IV hydromorphone and her pain was 3-5/ 10 in intensity, IV Zofran and IV Protonix. Past Medical History Cardiac Medical History: Reports: Hyperlipidema Denies: Coronary Artery Disease, Myocardial Infarction, Hypertension Pulmonary Medical History: Reports: Bronchitis Denies: Asthma, Chronic Obstructive Pulmonary Disease (COPD), Pneumonia Neurological Medical History: Denies: Seizures GI Medical History: Reports: Gastroesophageal Reflux Disease, Other - Chronic intermittent pancreatitis Musculoskeltal Medical History: Denies: Arthritis Psychiatric Medical History: Denies: Depression Hematology: Denies: Anemia Past Surgical History Past Surgical History: Reports: Appendectomy, Cholecystectomy, Hysterectomy Social History Smoking Status: Current Every Day Smoker - 1 pack every 2 days Frequency of Alcohol Use: Occasional Hx Recreational Drug Use: No Drugs: None Hx Prescription Drug Abuse: No Family History Family History: Reviewed & Not Pertinent, CAD Parental Family History Reviewed: Yes - As above Children Family History Reviewed: NA Sibling(s) Family History Reviewed.: NA Medication/Allergy Home Medications: Gabapentin [Neurontin 300 mg Capsule] 300 mg PO Q12 #60 capsule 11/02/17 Ondansetron HCl [Zofran 4 mg Tablet] 1 - 2 tab PO Q4H PRN #10 tablet 09/19/17 Oxycodone HCl [Oxy-Ir 5 mg Tablet] 5 mg PO Q4HP PRN 2 Days #12 tablet 09/19/17 Promethazine HCl [Phenergan 25 mg Tablet] 1 - 2 tab PO Q6H PRN #15 tablet Tramadol HCl [Ultram 50 mg Tablet] 50 mg PO Q4HP PRN #10 tab 09/25/17 Hydrocodone/Acetaminophen [Maxie 5-325 mg Tablet] 1 tab PO Q6HP PRN #10 tablet 09/01/18 Ondansetron [Zofran Odt 4 mg Tablet] 1 - 2 tab PO Q4HP PRN #20 tab.rapdis Promethazine HCl [Phenergan 25 mg Tablet] 25 mg PO Q4HP PRN #20 tablet 09/01/18 Allergies/Adverse Reactions: aspirin [Aspirin] Allergy (Verified 09/25/17 10:12) STOMACH PAIN ibuprofen [From Motrin] Allergy (Verified 09/25/17 10:12) STOMACH PAIN iodine [Iodine] Allergy (Verified 09/25/17 10:12) Hives morphine [Morphine] Allergy (Verified 09/25/17 10:12) Generalized Itching acetaminophen [From Percocet] Adverse Reaction (Verified 09/25/17 10:12) Hallucinations meloxicam [From Mobic] Adverse Reaction (Verified 09/25/17 10:12) STOMACH PAIN ivp dye Allergy (Uncoded 09/25/17 10:12) Hives Review of Systems Review of Systems: As outlined above, others negative Physical Exam Vital Signs: Temp Pulse Resp BP Pulse Ox 98.4 F 92 20 147/63 H 98 09/07/18 22:24 09/07/18 22:24 09/07/18 22:24 09/07/18 22:24 09/07/18 22:24 Additional comments: General appearance: Well-developed, morbidly obese, alert and cooperative, and appears to be in no acute distress Head: Normocephalic Eyes: PEERL, EOMI, vision is grossly intact. Ears: External auditory canal and tympanic membranes clear, hearing grossly intact. Nose: No nasal discharge. Throat: Oral cavity and pharynx normal. No inflammation, swelling, exudate or lesions. Neck: Neck supple, nontender without lymphadenopathy, masses or thyromegaly. Cardiac: Normal S1 and S2. No S3, S4 or murmurs. Rhythm is regular. There is no peripheral edema, cyanosis or pallor. Extremities are warm and well perfused. Capillary refill is less than 2 seconds. No carotid bruits. Lungs: Clear to auscultation and percussion without rales, rhonchi, wheezing or diminished breath sounds. Not using accessory muscles. Abdomen: Positive bowel sounds. Soft. Nondistended, mild epigastric tenderness. No guarding or rebound. No masses. Difficult to appreciate hepatosplenomegaly secondary to her body habitus Extremities: No significant deformity or joint abnormality. No edema. Peripheral pulses intact. No varicosities. Neurological: Cranial nerves II through XII grossly intact. Strength and sensation symmetric and intact throughout. Reflexes 2+ throughout. Skin: Skin normal color, texture and turgor with no lesions or eruptions, warm and dry. Psychiatric: The mental examination revealed the patient was oriented to person , place, and time. The patient was able to demonstrate good judgment on recent , without hallucinations, abnormal affect or abnormal behaviors. Results Laboratory Results: 09/07/18 09/07/18 23:10 23:10 WBC 10.4 RBC 5.68 H Hgb 16.1 H Hct 47.7 H MCV 84 MCH 28.4 MCHC 33.8 RDW 14.3 H Plt Count 469 H Seg Neutrophils % 57.0 Lymphocytes % 35.4 Monocytes % 6.3 Eosinophils % 0.5 Basophils % 0.8 Absolute Neutrophils 5.9 Absolute Lymphocytes 3.7 Absolute Monocytes 0.7 Absolute Eosinophils 0.1 Absolute Basophils 0.1 Sodium 139.5 Potassium 4.3 Chloride 103 Carbon Dioxide 25 Anion Gap 12 BUN 23 H Creatinine 1.15 Est GFR ( Amer) 58 L Est GFR (Non-Af Amer) 48 L Glucose 139 H Calcium 10.8 H Total Bilirubin 0.9 Direct Bilirubin 0.4 AST 37 H ALT 21 Alkaline Phosphatase 183 H Total Protein 9.6 H Albumin 4.8 Lipase 545.5 H Assessment & Plan - Diagnosis (1) Pancreatitis, recurrent Is this a current diagnosis for this admission?: Yes Plan: Patient comes with abdominal pain that has been worsening for the last week, history of intermittent pancreatitis. Her lipase a week ago was 292 and today 445, she has similar symptoms to when she has had acute pancreatitis. Will place the patient n.p.o., IV fluids with normal saline running at 150 cc/h, IV and p.o. pain medication as well as antiemetics. We will repeat lipase in the morning. IV Protonix. (2) Alkaline phosphatase elevation Is this a current diagnosis for this admission?: Yes Plan: Chronically elevated, little bit worse than before. (3) Degenerative disc disease, lumbar Is this a current diagnosis for this admission?: Yes Plan: Pain medication as needed (4) Morbid obesity Is this a current diagnosis for this admission?: Yes Plan: Lifestyle modification - Time Time Spent: 50 to 70 Minutes Anticipated discharge: Home - Inpatient Certification Based on my medical assessment, after consideration of the patient's comorbidities, presenting symptoms, or acuity I expect that the services needed warrant INPATIENT care.: Yes I certify that my determination is in accordance with my understanding of Medicare's requirements for reasonable and necessary INPATIENT services [42 CFR 412.3e].: Yes Medical Necessity: Risk of Complication if Not Cared For in Hospital
[2018-09-08] MEDS: NORMAL SALINE 1000 ML 1,000 ML IV PRN ×2 (02:26→17:41)
[2018-09-08] MEDS: HYDROMORPHONE HCL INJ/PF 2 MG/ML AMPULE IV PRN ×5 (04:25→21:27)
--- NOTE | 2018-09-08 06:15 | EKG REPORT ---
SEVERITY:- ABNORMAL ECG - SINUS RHYTHM RIGHT ATRIAL ABNORMALITY LVH WITH SECONDARY REPOLARIZATION ABNORMALITY BORDERLINE PROLONGED QT INTERVAL : Confirmed by: Sheldon Huff MD 08-Sep-2018 06:14:46
[2018-09-08 07:04] LABS: ABSOLUTE LYMPHOCYTES (AUTO) 2.8 10^3/uL (0.5-4.7); ABSOLUTE MONOCYTES (AUTO) 0.6 10^3/uL (0.1-1.4); ABSOLUTE NEUT (AUTO) 5.8 10^3/uL (1.7-8.2); BASOPHILS % (AUTO) 0.5 % (0-2); EOSINOPHILS % (AUTO) 0.3 % (0-6); HEMATOCRIT 42.1 % (36.0-47.0); LYMPHOCYTES % (AUTO) 30.1 % (13-45); MEAN CORPUSCULAR HEMOGLOBIN 28.1 pg (27.0-33.4); MEAN CORPUSCULAR VOLUME 85 fl (80-97); MONOCYTES % (AUTO) 6.3 % (3-13); PLATELET COUNT 335 10^3/uL (150-450); RED BLOOD COUNT 4.95 10^6/uL (3.72-5.28); RED CELL DISTRIBUTION WIDTH 14.6 % (11.5-14.0); SEGMENTED NEUTROPHILS % (AUTO) 62.8 % (42-78); TOTAL CELLS COUNTED % (AUTO) 100 %; WHITE BLOOD COUNT 9.2 10^3/uL (4.0-10.5)
[2018-09-08 07:12] LABS: HEMOGLOBIN 13.9 g/dL (12.0-15.5)
[2018-09-08 07:16] LABS: ALANINE AMINOTRANSFERASE 23 U/L (9-52); ALBUMIN 4.1 g/dL (3.5-5.0); ALKALINE PHOSPHATASE 136 U/L (38-126); ANION GAP 10 (5-19); ASPARTATE AMINO TRANSFERASE 27 U/L (14-36); BILIRUBIN,DIRECT 0.3 mg/dL (0.0-0.4); BILIRUBIN,TOTAL 0.7 mg/dL (0.2-1.3); BLOOD UREA NITROGEN 25 mg/dL (7-20); CALCIUM 9.8 mg/dL (8.4-10.2); CARBON DIOXIDE 22 mmol/L (22-30); CHLORIDE 108 mmol/L (98-107); GLUCOSE 97 mg/dL (75-110); LIPASE 459.4 U/L (23-300); POTASSIUM 5.1 mmol/L (3.6-5.0); SODIUM 139.5 mmol/L (137-145); TOTAL PROTEIN 7.6 g/dL (6.3-8.2)
[2018-09-08] MEDS: PROMETHAZINE HCL INJ 25 MG/1 ML VIAL IV PRN ×2 (08:36→13:56)
[2018-09-08 09:15] LABS: CHOLESTEROL 205.41 mg/dL (0-200); TRIGLYCERIDES 116 mg/dL (<150)
[2018-09-08] MEDS: PANTOPRAZOLE SODIUM 40 MG VIAL IV SCH (09:23)
[2018-09-08] MEDS: ENOXAPARIN SODIUM INJ 40 MG/0.4 ML DISP.SYRIN SUBCUT SCH (09:23)
[2018-09-08 09:26] LABS: DIRECT LDL 151 mg/dL (<100)
[2018-09-08] MEDS ORDERED: METHYLPREDNISOLONE INJ 125 MG/2 ML SDV IV PRN (11:09)
[2018-09-08] MEDS ORDERED: DIPHENHYDRAMINE HCL 50 MG/ML VIAL IV PRN (11:10)
[2018-09-08] MEDS ORDERED: FAMOTIDINE INJ/PF 20 MG/2 ML SDV IV PRN (11:10)
[2018-09-08] MEDS ORDERED: ALBUTEROL SULFATE HFA (90 MCG/PUFF) 8 GM MDI (1 MDI/ER DISP) IH PRN (11:21)
[2018-09-08] MEDS ORDERED: GLUCAGON,HUMAN RECOMB 1 MG INJ IM PRN (11:22)
[2018-09-08] MEDS ORDERED: INSULIN REG, HUMAN 100 UNIT/ML 3 ML VIAL (PYX) SUBCUT PRN (11:22)
[2018-09-08] MEDS ORDERED: DEXTROSE 50%-WATER 25 GM/50 ML DISP.SYRIN IV PRN ×2 (11:22)
[2018-09-08] MEDS ORDERED: DEXTROSE 40% GEL 15 GM TUBE PO PRN ×2 (11:22)
[2018-09-08] MEDS ORDERED: DIPHENHYDRAMINE HCL 25 MG CAPSULE ONE (11:32)
[2018-09-08] MEDS ORDERED: DIPHENHYDRAMINE HCL 50 MG CAPSULE PO PRN (11:51)
[2018-09-08] MEDS ORDERED: ALBUTEROL SULFATE HFA (90 MCG/PUFF) 200 PUFF/8.5 GM MDI IH PRN (12:11)
--- NOTE | 2018-09-08 12:21 | RADIOLOGY REPORT (SQ) ---
EXAM DESCRIPTION: CT ABD/PELVIS WITH IV ORAL COMPLETED DATE/TIME: 09/08/2018 12:08 pm REASON FOR STUDY: pancreatitis COMPARISON: None. TECHNIQUE: CT scan of the abdomen and pelvis performed with intravenous and oral contrast using celia mauro scanning technique with dynamic intravenous contrast injection. Images reviewed with lung, soft t issue, and bone windows. Reconstructed coronal and sagittal MPR images reviewed. Delayed images for e valuation of the urinary system also acquired. All images stored on PACS. All CT scanners at this facility use dose modulation, iterative reconstruction, and/or weight based d osing when appropriate to reduce radiation dose to as low as reasonably achievable (ALARA). [facility]: Dose Right [facility]: CareDose [facility]: Dose Right [facility]: Teradose 4D [facility]: [employer] CONTRAST TYPE AND DOSE: contrast/concentration: Isovue 350.00 mg/ml; Total Contrast Delivered: 99.0 ml; Total Saline Delivered: 62.0 ml Patient pre-medicated due to history of contrast allergy. RENAL FUNCTION: BUN 25 creatinine 1.02 RADIATION DOSE: CT Rad equipment meets quality standard of care and radiation dose reduction techniq ues were employed. CTDIvol: 20.1 - 21.0 mGy. DLP: 2237 mGy-cm. . LIMITATIONS: None. FINDINGS: LOWER CHEST: Bandlike scarring in the left base. LIVER: Normal size. No masses. No dilated ducts. SPLEEN: Normal size. No focal lesions. PANCREAS: No masses. No significant calcifications. No adjacent inflammation or peripancreatic fluid collections. Pancreatic duct not dilated. GALLBLADDER: Surgically absent. ADRENAL GLANDS: No significant masses or asymmetry. RIGHT KIDNEY AND URETER: No solid masses. No significant calcifications. No hydronephrosis or hyd roureter. LEFT KIDNEY AND URETER: No solid masses. No significant calcifications. No hydronephrosis or hydr oureter. AORTA AND VESSELS: No aneurysm. No dissection. Renal arteries, SMA, celiac without stenosis. RETROPERITONEUM: No retroperitoneal adenopathy, hemorrhage or masses. BOWEL AND PERITONEAL CAVITY: No obstruction. No visualized masses. No free fluid. No inflammatory ch anges or thickening of bowel wall. APPENDIX: Surgically absent. PELVIS: No significant masses. Normal bladder. No free fluid. ABDOMINAL WALL: Small fat containing umbilical hernia. BONES: No significant or acute findings. OTHER: No other significant finding. IMPRESSION: NO ACUTE FINDINGS IN THE ABDOMEN OR PELVIS. TECHNICAL DOCUMENTATION: JOB ID: [id number] Quality ID # [id number]: Final reports with documentation of one or more dose reduction techniques (e.g., Au tomated exposure control, adjustment of the mA and/or kV according to patient size, use of iterative reconstruction technique) 2010 [employer]- All Rights Reserved Reading location - IP/workstation name: [email or web address] [id number]
[2018-09-09] MEDS: HYDROMORPHONE HCL INJ/PF 2 MG/ML AMPULE IV PRN ×5 (01:35→20:44)
[2018-09-09] MEDS: NORMAL SALINE 1000 ML 1,000 ML IV PRN (06:09)
[2018-09-09 06:54] LABS: ANION GAP 8 (5-19); BLOOD UREA NITROGEN 20 mg/dL (7-20); CALCIUM 9.7 mg/dL (8.4-10.2); CARBON DIOXIDE 22 mmol/L (22-30); CHLORIDE 108 mmol/L (98-107); GLUCOSE 97 mg/dL (75-110); POTASSIUM 4.9 mmol/L (3.6-5.0)
--- NOTE | 2018-09-09 09:18 | PDOC PROGRESS REPORT ---
Subjective Progress Note for:: 09/09/18 Subjective:: She is feeling better still some epigastric pain no nausea vomiting no shortness of breath or chest pain. Discussed results of CT and recent laboratory testing she is hungry. Blood sugars have been within reasonable range. Reason For Visit: ACUTE PANCREATITIS Physical Exam Vital Signs: Temp Pulse Resp BP Pulse Ox 97.6 F 57 L 17 132/63 H 99 09/09/18 07:32 09/09/18 07:32 09/09/18 07:32 09/09/18 07:32 09/09/18 07:32 Intake & Output 09/08/18 09/09/18 09/10/18 06:59 06:59 06:59 Intake Total 87 2994 Balance 87 2994 Weight 92.6 kg 94.5 kg General appearance: PRESENT: no acute distress, well-developed, well-nourished Head exam: PRESENT: atraumatic, normocephalic Eye exam: PRESENT: conjunctiva pink, EOMI, PERRLA. ABSENT: scleral icterus Ear exam: PRESENT: normal external ear exam Mouth exam: PRESENT: moist, tongue midline Throat exam: PRESENT: post pharyngeal erythema Neck exam: PRESENT: full ROM. ABSENT: carotid bruit, JVD, lymphadenopathy, thyromegaly Respiratory exam: PRESENT: clear to auscultation martín Cardiovascular exam: PRESENT: RRR. ABSENT: diastolic murmur, rubs, systolic murmur Pulses: PRESENT: normal dorsalis pedis pul, +2 pedal pulses bilateral Vascular exam: PRESENT: normal capillary refill GI/Abdominal exam: PRESENT: tenderness Additonal comments: Patient has epigastric and hypogastric tenderness no guarding or rebound Rectal exam: PRESENT: deferred Extremities exam: PRESENT: full ROM Musculoskeletal exam: PRESENT: ambulatory, deformity, dislocation, full ROM, normal inspection, tenderness, other Neurological exam: PRESENT: alert, awake, oriented to person, oriented to place , oriented to time, oriented to situation, CN II-XII grossly intact. ABSENT: motor sensory deficit Psychiatric exam: PRESENT: appropriate affect, normal mood. ABSENT: homicidal ideation, suicidal ideation Skin exam: PRESENT: dry, intact, warm. ABSENT: cyanosis, rash Results Laboratory Results: 09/08/18 06:09 09/09/18 06:11 09/08/18 09/09/18 09/09/18 06:09 06:11 06:11 Sodium 138.0 Potassium 4.9 Chloride 108 H Carbon Dioxide 22 Anion Gap 8 BUN 20 Creatinine 0.81 Est GFR ( Amer) > 60 Est GFR (Non-Af Amer) > 60 Glucose 97 Calcium 9.7 Triglycerides 116 Cholesterol 205.41 H LDL Cholesterol Direct 151 H VLDL Cholesterol 23.0 HDL Cholesterol 34 L Lipase 141.7 Impressions: Abdomen/Pelvis CT 09/08/18 00:00 IMPRESSION: NO ACUTE FINDINGS IN THE ABDOMEN OR PELVIS. Assessment & Plan - Diagnosis (1) Acute on chronic pancreatitis Is this a current diagnosis for this admission?: Yes Plan: plan start bdiet and advance as tolerated, decrease IV fluids, will check lipase for am (2) Diabetes Qualifiers: Diabetes mellitus type: type 2 Diabetes mellitus long-term insulin use: without long-term use Diabetes mellitus complication status: without complication Qualified Code(s): E11.9 - Type 2 diabetes mellitus without complications Is this a current diagnosis for this admission?: Yes Plan: will continue accuchecks and monitor for results. - Inpatient Certification I certify that my determination is in accordance with my understanding of Medicare's requirements for reasonable and necessary INPATIENT services [42 CFR 412.3e].: Yes Medical Necessity: Need For IV Fluids Post Hospital Care: D/C [employer] Documentation
[2018-09-09] MEDS: ENOXAPARIN SODIUM INJ 40 MG/0.4 ML DISP.SYRIN SUBCUT SCH (10:18)
[2018-09-09] MEDS: PANTOPRAZOLE SODIUM 40 MG VIAL IV SCH (10:18)
[2018-09-09] MEDS: ACETAMINOPHEN 325 MG TABLET PO PRN (20:44)
[2018-09-10] MEDS: HYDROMORPHONE HCL INJ/PF 2 MG/ML AMPULE IV PRN ×6 (00:57→23:44)
[2018-09-10 05:44] LABS: ANION GAP 9 (5-19); BLOOD UREA NITROGEN 17 mg/dL (7-20); CALCIUM 9.4 mg/dL (8.4-10.2); CARBON DIOXIDE 26 mmol/L (22-30); CHLORIDE 107 mmol/L (98-107); GLUCOSE 124 mg/dL (75-110); LIPASE 527.8 U/L (23-300); POTASSIUM 4.4 mmol/L (3.6-5.0); SODIUM 142.3 mmol/L (137-145)
[2018-09-10] MEDS: ACETAMINOPHEN 325 MG TABLET PO PRN (06:01)
--- NOTE | 2018-09-10 09:21 | PDOC PROGRESS REPORT ---
Subjective Progress Note for:: 09/10/18 Subjective:: Patient states that he lost her IV access last night so they were unable to give her pain medication she had some mild nauseousness with clear liquids she is still having her epigastric pain it has not changed in quality and quantity radiation. Reason For Visit: ACUTE PANCREATITIS Physical Exam Vital Signs: Temp Pulse Resp BP Pulse Ox 97.7 F 57 L 18 172/61 H 100 09/10/18 07:25 09/10/18 07:25 09/10/18 07:25 09/10/18 07:25 09/10/18 07:25 Intake & Output 09/09/18 09/10/18 09/11/18 06:59 06:59 06:59 Intake Total 2994 2285 Balance 2994 2285 Weight 94.5 kg 95.7 kg General appearance: PRESENT: no acute distress, well-developed, well-nourished Head exam: PRESENT: atraumatic, normocephalic Eye exam: PRESENT: conjunctiva pink, EOMI, PERRLA. ABSENT: scleral icterus Ear exam: PRESENT: normal external ear exam Mouth exam: PRESENT: moist, tongue midline Neck exam: PRESENT: full ROM. ABSENT: carotid bruit, JVD, lymphadenopathy, thyromegaly Respiratory exam: PRESENT: clear to auscultation martín Cardiovascular exam: PRESENT: RRR, +S1, +S2 Pulses: PRESENT: normal dorsalis pedis pul, +2 pedal pulses bilateral Vascular exam: PRESENT: normal capillary refill GI/Abdominal exam: PRESENT: hyperactive bowel sounds, soft, tenderness Additonal comments: Epi gastric pain Rectal exam: PRESENT: deferred Extremities exam: PRESENT: full ROM Musculoskeletal exam: PRESENT: ambulatory Neurological exam: PRESENT: alert, awake, oriented to person, oriented to place , oriented to time, oriented to situation, CN II-XII grossly intact. ABSENT: motor sensory deficit Psychiatric exam: PRESENT: appropriate affect, normal mood. ABSENT: homicidal ideation, suicidal ideation Skin exam: PRESENT: dry, intact, warm. ABSENT: cyanosis, rash Results Laboratory Results: 09/08/18 06:09 09/10/18 04:13 09/10/18 04:13 Sodium 142.3 Potassium 4.4 Chloride 107 Carbon Dioxide 26 Anion Gap 9 BUN 17 Creatinine 0.98 Est GFR ( Amer) > 60 Est GFR (Non-Af Amer) 58 L Glucose 124 H Calcium 9.4 Lipase 527.8 H Impressions: Abdomen/Pelvis CT 09/08/18 00:00 IMPRESSION: NO ACUTE FINDINGS IN THE ABDOMEN OR PELVIS. Assessment & Plan - Diagnosis (1) Acute on chronic pancreatitis Is this a current diagnosis for this admission?: Yes Plan: We will need IV access so we will place order for emergency room first for a vein finder if not PICC line due to the pancreatitis we will try oxycodone 2024 oral now in the interim we will recheck lipase in the morning we will maintain on clear liquids. (2) Diabetes Qualifiers: Diabetes mellitus type: type 2 Diabetes mellitus correction insulin use: without clinical courier use Diabetes mellitus complication status: without complication Qualified Code(s): E11.9 - Type 2 diabetes mellitus without complications Is this a current diagnosis for this admission?: Yes Plan: Continue Accu-Cheks with sliding scale. - Time Time Spent with patient: 15-24 minutes Medications reviewed and adjusted accordingly: Yes Within: within 48 hours - Inpatient Certification I certify that my determination is in accordance with my understanding of Medicare's requirements for reasonable and necessary INPATIENT services [42 CFR 412.3e].: Yes Medical Necessity: Need For IV Fluids Post Hospital Care: D/C Associate Artistic Director Documentation
[2018-09-10] MEDS: OXYCODONE HCL IR 5 MG TABLET PO PRN ×2 (10:03→23:01)
[2018-09-10] MEDS: ENOXAPARIN SODIUM INJ 40 MG/0.4 ML DISP.SYRIN SUBCUT SCH (10:03)
[2018-09-10] MEDS ORDERED: NORMAL SALINE 10 ML SDV (AFTER EACH USE) IV PRN (11:05)
--- NOTE | 2018-09-10 11:20 | RADIOLOGY REPORT (SQ) ---
EXAM DESCRIPTION: PICC INSERTION; FLUORO/CV PLACEMENT; U/S GUIDE FOR VASCULAR ACCESS COMPLETED DATE/TIME: 09/10/2018 10:58 am REASON FOR STUDY: pancreatitis; IV ACCESS PICC catheter needed for central venous access COMPARISON: CT abdomen pelvis 09/08/2018 FLUOROSCOPY TIME: 20 seconds 1 ultrasound and 1 digital fluoroscopic chest images saved to PACS. TECHNIQUE: Fluoroscopic and ultrasound guided PICC placement. LIMITATIONS: None. PROCEDURE: After written consent and assessment were obtained, the patient was brought into the fluo roscopy room and placed supine on the table. Ultrasound evaluation of potential access sites were per formed. After successfully identifying a patent left basilic vein, the left arm was prepped and drape d in a sterile fashion along with the ultrasound probe. The entry site was anesthetized with 1% lidoc chante. A 21 gauge 7 cm needle was advanced through the skin and into the basilic vein under live ultra sound guidance. An ultrasound image was saved to PACS confirming access site. A .018 guide wire was then inserted through the needle and into the venous system. The needle was then removed and an 11 b lade scalpel was used to make a 1cm skin incision. A 5 fr peel-away sheath was advanced over the wir e and into the venous system. A measurement was then made using the existing wire and live fluoroscop ic guidance. The wire was then removed and trimmed. The PICC was advanced through the peel-away sheat h and into the venous system. The peel-away sheath was removed and the catheter was adhered to the pa tients arm with a stat lock. The catheter was then aspirated and flushed and a sterile bandage was pl aced over the access site. A fluoroscopic spot image was saved to PACS confirming the catheter tip w ithin the superior vena cava. IMPRESSION: SUCCESSFUL PLACEMENT OF A 5 FR DUAL LUMEN 39 cm PICC IN THE LEFT BASILIC VEIN. COMMENT: Patient medication list reviewed: Yes- Quality ID# [id number]:Eligible professional attests to doc umenting in the medical record they obtained, updated, or reviewed the patient's current medications. . Quality ID 145: Final reports for procedures using fluoroscopy that document radiation exposure cydney axel, or exposure time and number of fluorographic images (if radiation exposure indices are not avail able) Quality ID #76: The patient was prepped and draped using maximum sterile barrier technique including cap, mask, sterile gown, sterile gloves, a large sterile sheet, hand hygiene, and 2% Chlorhexidine fo r cutaneous antisepsis. When ultrasound is used, sterile ultrasound techniques are followed requiring sterile gel and sterile probes. TECHNICAL DOCUMENTATION: JOB ID: [id number] [employer]- All Rights Reserved rev-04/04 Reading location - IP/workstation name: [facility]
[2018-09-10] MEDS: PANTOPRAZOLE SODIUM 40 MG VIAL IV SCH (12:08)
[2018-09-10] MEDS: PROMETHAZINE HCL INJ 25 MG/1 ML VIAL IV PRN (20:18)
[2018-09-10] MEDS: NORMAL SALINE 10 ML SDV (SCHEDULED) IV SCH (21:34)
[2018-09-11] MEDS: HYDROMORPHONE HCL INJ/PF 2 MG/ML AMPULE IV PRN ×7 (02:43→23:19)
[2018-09-11] MEDS: NORMAL SALINE 1000 ML 1,000 ML IV PRN ×2 (02:45→16:19)
[2018-09-11] MEDS: OXYCODONE HCL IR 5 MG TABLET PO PRN ×2 (04:42→21:32)
[2018-09-11 07:01] LABS: ALANINE AMINOTRANSFERASE 15 U/L (9-52); ALBUMIN 3.2 g/dL (3.5-5.0); ALKALINE PHOSPHATASE 109 U/L (38-126); ANION GAP 6 (5-19); ASPARTATE AMINO TRANSFERASE 14 U/L (14-36); BILIRUBIN,DIRECT 0.1 mg/dL (0.0-0.4); BILIRUBIN,TOTAL 0.2 mg/dL (0.2-1.3); BLOOD UREA NITROGEN 15 mg/dL (7-20); CALCIUM 9.2 mg/dL (8.4-10.2); CARBON DIOXIDE 27 mmol/L (22-30); CHLORIDE 108 mmol/L (98-107); GLUCOSE 110 mg/dL (75-110); LIPASE 362.8 U/L (23-300); POTASSIUM 4.3 mmol/L (3.6-5.0); SODIUM 140.8 mmol/L (137-145)
[2018-09-11] MEDS: ACETAMINOPHEN 325 MG TABLET PO PRN ×4 (08:06→21:33)
[2018-09-11] MEDS: PROMETHAZINE HCL INJ 25 MG/1 ML VIAL IV PRN (08:49)
--- NOTE | 2018-09-11 09:22 | PDOC PROGRESS REPORT ---
Subjective Progress Note for:: 09/11/18 Subjective:: Patient seen today her blood pressure is well controlled , fasting blood sugar was 115, her pain has decreased, she is tolerating clear liquids no n/v, she a toothpain left lower jaw . Reason For Visit: ACUTE PANCREATITIS Physical Exam Vital Signs: Temp Pulse Resp BP Pulse Ox 97.9 F 56 L 16 140/62 H 100 09/11/18 07:16 09/11/18 07:16 09/11/18 07:16 09/11/18 07:16 09/11/18 07:16 Intake & Output 09/10/18 09/11/18 09/12/18 06:59 06:59 06:59 Intake Total 2285 791 Balance 2285 791 Weight 95.7 kg 95.4 kg General appearance: PRESENT: no acute distress, well-developed, well-nourished Head exam: PRESENT: atraumatic, normocephalic Eye exam: PRESENT: conjunctiva pink, EOMI, PERRLA. ABSENT: scleral icterus Ear exam: PRESENT: normal external ear exam Mouth exam: PRESENT: moist, tongue midline Teeth exam: PRESENT: dental caries, dental tenderness Throat exam: PRESENT: post pharyngeal erythema Neck exam: PRESENT: full ROM. ABSENT: carotid bruit, JVD, lymphadenopathy, thyromegaly Respiratory exam: PRESENT: clear to auscultation martín Cardiovascular exam: PRESENT: RRR. ABSENT: diastolic murmur, rubs, systolic murmur Pulses: PRESENT: normal dorsalis pedis pul, +2 pedal pulses bilateral Vascular exam: PRESENT: normal capillary refill GI/Abdominal exam: PRESENT: hyperactive bowel sounds, tenderness Additonal comments: epigastric and hypogastric no guarding or rebound Rectal exam: PRESENT: deferred Extremities exam: PRESENT: full ROM Musculoskeletal exam: PRESENT: ambulatory Neurological exam: PRESENT: alert, awake, oriented to person, oriented to place , oriented to time, oriented to situation, CN II-XII grossly intact. ABSENT: motor sensory deficit Psychiatric exam: PRESENT: appropriate affect, normal mood. ABSENT: homicidal ideation, suicidal ideation Skin exam: PRESENT: dry, intact, warm. ABSENT: cyanosis, rash Results Laboratory Results: 09/08/18 06:09 09/11/18 06:27 09/11/18 06:27 Sodium 140.8 Potassium 4.3 Chloride 108 H Carbon Dioxide 27 Anion Gap 6 BUN 15 Creatinine 0.96 Est GFR ( Amer) > 60 Est GFR (Non-Af Amer) 59 L Glucose 110 Calcium 9.2 Total Bilirubin 0.2 AST 14 ALT 15 Alkaline Phosphatase 109 Total Protein 6.0 L Albumin 3.2 L Lipase 362.8 H Impressions: Abdomen/Pelvis CT 09/08/18 00:00 IMPRESSION: NO ACUTE FINDINGS IN THE ABDOMEN OR PELVIS. Guidance Fluoroscopy 09/10/18 00:00 IMPRESSION: SUCCESSFUL PLACEMENT OF A 5 FR DUAL LUMEN 39 cm PICC IN THE LEFT BASILIC VEIN. Interventional Vascular Procedure 09/10/18 00:00 IMPRESSION: SUCCESSFUL PLACEMENT OF A 5 FR DUAL LUMEN 39 cm PICC IN THE LEFT BASILIC VEIN. PICC Line Insertion 09/10/18 00:00 IMPRESSION: SUCCESSFUL PLACEMENT OF A 5 FR DUAL LUMEN 39 cm PICC IN THE LEFT BASILIC VEIN. Assessment & Plan - Diagnosis (1) Acute on chronic pancreatitis Is this a current diagnosis for this admission?: Yes Plan: cont. IV fluids and analgesic will check lipase in am, (2) Diabetes Qualifiers: Diabetes mellitus type: type 2 Diabetes mellitus correction insulin use: without correction use Diabetes mellitus complication status: without complication Qualified Code(s): E11.9 - Type 2 diabetes mellitus without complications Is this a current diagnosis for this admission?: Yes Plan: cont. accuchecks with sliding scale (3) Infected dental caries Is this a current diagnosis for this admission?: Yes Plan: start on augmentin 500mg po q8 hrs will need dental evaluation upon discharge - Time Time Spent with patient: 15-24 minutes Smoking Cessation Education: 3 to 10 minutes Medications reviewed and adjusted accordingly: Yes Anticipated discharge: Home Within: within 24 hours - Inpatient Certification Medical Necessity: Failure to Improve With Outpatient Therapy, Need For IV Fluids Post Hospital Care: D/C Health Care Sanitary Technician Documentation
[2018-09-11] MEDS: PANTOPRAZOLE SODIUM 40 MG VIAL IV SCH (09:47)
[2018-09-11] MEDS: ENOXAPARIN SODIUM INJ 40 MG/0.4 ML DISP.SYRIN SUBCUT SCH (09:48)
[2018-09-11] MEDS: NORMAL SALINE 10 ML SDV (SCHEDULED) IV SCH ×2 (09:49→21:33)
[2018-09-11] MEDS: AMOXICILLIN TR/POT CLAVULANATE 500-125 MG TAB PO SCH ×2 (13:15→21:32)
[2018-09-12] MEDS: ACETAMINOPHEN 325 MG TABLET PO PRN ×2 (02:56→07:52)
[2018-09-12] MEDS: HYDROMORPHONE HCL INJ/PF 2 MG/ML AMPULE IV PRN ×2 (04:22→07:52)
[2018-09-12] MEDS: AMOXICILLIN TR/POT CLAVULANATE 500-125 MG TAB PO SCH (05:12)
[2018-09-12 05:38] LABS: ALANINE AMINOTRANSFERASE 13 U/L (9-52); ALKALINE PHOSPHATASE 105 U/L (38-126); ANION GAP 9 (5-19); ASPARTATE AMINO TRANSFERASE 17 U/L (14-36); BILIRUBIN,DIRECT 0.1 mg/dL (0.0-0.4); BILIRUBIN,TOTAL 0.2 mg/dL (0.2-1.3); BLOOD UREA NITROGEN 11 mg/dL (7-20); CALCIUM 8.7 mg/dL (8.4-10.2); CARBON DIOXIDE 25 mmol/L (22-30); CHLORIDE 112 mmol/L (98-107); GLUCOSE 108 mg/dL (75-110); LIPASE 333.6 U/L (23-300); POTASSIUM 4.2 mmol/L (3.6-5.0); SODIUM 145.8 mmol/L (137-145); TOTAL PROTEIN 5.8 g/dL (6.3-8.2)
[2018-09-12] MEDS: NORMAL SALINE 1000 ML 1,000 ML IV PRN (05:54)
[2018-09-12] MEDS: PROMETHAZINE HCL INJ 25 MG/1 ML VIAL IV PRN (07:53)
--- NOTE | 2018-09-12 09:09 | PDOC DISCHARGE SUMMARY ---
General - Admit/Disc Date/PCP Admission Date/Primary Care Provider: 09/08/18 01:57 SACHI HOWARD MD Discharge Date: 09/12/18 - Discharge Diagnosis (1) Acute on chronic pancreatitis Is this a current diagnosis for this admission?: Yes (2) Diabetes Is this a current diagnosis for this admission?: Yes (3) Infected dental caries Is this a current diagnosis for this admission?: Yes - Additional Information Resuscitation Status: Full Code Discharge Diet: Diabetic, Other (Comments) Discharge Activity: Activity As Tolerated Prescriptions: Amox Tr/Potassium Clavulanate [Augmentin "500" Tablet] 1 tab PO Q8 7 Days #21 tablet Oxycodone HCl [Oxy-Ir 5 mg Tablet] 5 mg PO Q4HP PRN 14 Days #60 tablet PRN Reason: Home Medications: Albuterol Sulfate [Ventolin HFA MDI 18 GM] 2 puff IH Q6HP PRN 09/08/18 Ondansetron [Zofran Odt 4 mg Tablet] 4 mg SL Q4HP PRN 09/08/18 Oxycodone HCl [Oxy-Ir 5 mg Tablet] 5 mg PO Q6HP PRN 09/08/18 Pantoprazole Sodium [Protonix] 40 mg PO DAILY 09/08/18 Amox Tr/Potassium Clavulanate [Augmentin "500" Tablet] 1 tab PO Q8 7 Days #21 tablet 09/12/18 Oxycodone HCl [Oxy-Ir 5 mg Tablet] 5 mg PO Q4HP PRN 14 Days #60 tablet 09/12/18 History of Present Illness Patient complains of: Patient presents with abdominal pain 1-2-day history of prior epigastric, hypogastric radiating to the back sharp associated with nausea vomiting, denied any NSAIDs, EtOH. History of Present Illness: FLORENCE GR is a 58 year old female Hospital Course Hospital Course: Patient was admitted to the hospital n.p.o. IV fluid resuscitation, IV Protonix , analgesics, antiemetics. She had fasting cholesterol done which showed no evidence of hypertriglyceridemia no mild hyperlipidemia, she had a CT of the abdomen which showed no evidence of acute peripancreatic complications of a cyst hemorrhage or evidence of necrosis. During her hospitalization her lipase came down to acceptable levels at which time she was started on clear liquids which she tolerated with no further nausea and only minimal pain, there was no fever she was able to tolerate her foods she was able to ambulate without any difficulties and she was felt stable for discharge. Physical Exam Vital Signs: Temp Pulse Resp BP Pulse Ox 97.6 F 59 L 20 171/69 H 100 09/12/18 07:15 09/12/18 07:15 09/12/18 07:15 09/12/18 07:15 09/12/18 07:15 Intake & Output 09/11/18 09/12/18 09/13/18 06:59 06:59 06:59 Intake Total 791 2713 Balance 791 2713 Weight 95.4 kg 100.6 kg General appearance: PRESENT: no acute distress, well-developed, well-nourished Head exam: PRESENT: atraumatic, normocephalic Eye exam: PRESENT: conjunctiva pink, EOMI, PERRLA. ABSENT: scleral icterus Ear exam: PRESENT: normal external ear exam Mouth exam: PRESENT: moist, tongue midline Teeth exam: PRESENT: dental tenderness, poor dentation Throat exam: PRESENT: post pharyngeal erythema Neck exam: PRESENT: full ROM. ABSENT: carotid bruit, JVD, lymphadenopathy, thyromegaly Respiratory exam: PRESENT: clear to auscultation martín Cardiovascular exam: PRESENT: RRR. ABSENT: diastolic murmur, rubs, systolic murmur Pulses: PRESENT: normal dorsalis pedis pul, +2 pedal pulses bilateral Vascular exam: PRESENT: normal capillary refill GI/Abdominal exam: PRESENT: normal bowel sounds, soft. ABSENT: distended, guarding, mass, organolmegaly, rebound, tenderness Rectal exam: PRESENT: deferred Extremities exam: PRESENT: full ROM Musculoskeletal exam: PRESENT: ambulatory Neurological exam: PRESENT: alert, awake, oriented to person, oriented to place , oriented to time, oriented to situation, CN II-XII grossly intact. ABSENT: motor sensory deficit Psychiatric exam: PRESENT: appropriate affect, normal mood. ABSENT: homicidal ideation, suicidal ideation Skin exam: PRESENT: dry, intact, warm. ABSENT: cyanosis, rash Results Laboratory Results: 09/08/18 06:09 09/12/18 05:15 09/12/18 05:15 Sodium 145.8 H Potassium 4.2 Chloride 112 H Carbon Dioxide 25 Anion Gap 9 BUN 11 Creatinine 0.90 Est GFR ( Amer) > 60 Est GFR (Non-Af Amer) > 60 Glucose 108 Calcium 8.7 Total Bilirubin 0.2 AST 17 ALT 13 Alkaline Phosphatase 105 Total Protein 5.8 L Albumin 3.0 L Lipase 333.6 H Impressions: Abdomen/Pelvis CT 09/08/18 00:00 IMPRESSION: NO ACUTE FINDINGS IN THE ABDOMEN OR PELVIS. Guidance Fluoroscopy 09/10/18 00:00 IMPRESSION: SUCCESSFUL PLACEMENT OF A 5 FR DUAL LUMEN 39 cm PICC IN THE LEFT BASILIC VEIN. Interventional Vascular Procedure 09/10/18 00:00 IMPRESSION: SUCCESSFUL PLACEMENT OF A 5 FR DUAL LUMEN 39 cm PICC IN THE LEFT BASILIC VEIN. PICC Line Insertion 09/10/18 00:00 IMPRESSION: SUCCESSFUL PLACEMENT OF A 5 FR DUAL LUMEN 39 cm PICC IN THE LEFT BASILIC VEIN. Qualifiers - * PATIENT BEING DISCHARGED WITH ANY OF THE FOLLOWING DIAGNOSIS: No Plan Discharge Plan: Patient is being discharged home low-fat diet she was given smoking cessation for 3-7 minutes prior to discharge she will be sent home on p.o. Protonix, Augmentin for the tooth cavity she has been advised to follow-up with her dentist she will be given a prescription for oxycodone, antiemetics. With regards to diabetes due to the fact that metformin can cause elevation in amylase and lipase in females we will hold the metformin follow-up next week we will recheck her lipase and fasting sugar at which time determination of what treatment for her diabetes will be undertaken. She was found to have hyperlipidemia presently will hold till next week when we see in the office. Time Spent: Less than 30 Minutes
[2018-09-12 09:44] VITALS: BP 153/57
== END 2018-09-12 11:15 | disposition home or self-care (01) | DRG 440 ==
LOC: ER 22:07 → EH 09-08 01:41 → UNDOADMOB 09-08 01:46 → OBSVTOIN 09-08 01:57 → INTOOBSV 09-08 01:57 → 4S 09-08 03:20
PROVIDERS: ADMIT Internal Medicine; ATTEND Internal Medicine
PROC: 05HC33Z Insertion of Infusion Device into Left Basilic Vein, Percutaneous Approach (ICD-10-PCS; principal; 2018-09-10)
PROC: B51NZZA Fluoroscopy of Left Upper Extremity Veins, Guidance (ICD-10-PCS; 2018-09-10)
PROC: B54NZZA Ultrasonography of Left Upper Extremity Veins, Guidance (ICD-10-PCS; 2018-09-10)
DX: K85.90 Acute pancreatitis without necrosis or infection, unspecified (principal); E86.0 Dehydration; F17.200 Nicotine dependence, unspecified, uncomplicated; E78.5 Hyperlipidemia, unspecified; K21.9 Gastro-esophageal reflux disease without esophagitis; E11.9 Type 2 diabetes mellitus without complications; K86.1 Other chronic pancreatitis; K02.9 Dental caries, unspecified; K25.9 Gastric ulcer, unspecified as acute or chronic, without hemorrhage or perforation; E66.01 Morbid (severe) obesity due to excess calories; R74.8 Abnormal levels of other serum enzymes; M51.36 Other intervertebral disc degeneration, lumbar region; Z90.49 Acquired absence of other specified parts of digestive tract; Z90.710 Acquired absence of both cervix and uterus; Z88.6 Allergy status to analgesic agent; Z88.5 Allergy status to narcotic agent; Z79.899 Other long term (current) drug therapy; Z91.041 Radiographic dye allergy status
CPT/HCPCS: 36415; 36569; 74177; 76937; 77001; 80048; 80053; 80061; 80076; 82962; 83690; 85025; 93005; 93010; 96361; 96374; 96375; 99285; J1170; J1642; J1650; J1815; J2405; J2550; J2930; J3490; J7030; S0028; S0164

== ENCOUNTER 2018-12-28 05:41 | Emergency (ER) | payer BC ==
--- NOTE | 2018-12-28 06:49 | ER Document Report ---
ED General - General Chief Complaint: Abdominal Pain Stated Complaint: ABDOMINAL PAIN Time Seen by Provider: 12/28/18 06:29 Primary Care Provider: SACHI HOWARD MD [Primary Care Provider] - Follow up as needed TRAVEL OUTSIDE OF THE [place] IN LAST 30 DAYS: No - HPI Notes: Patient is a 58-year-old female that presents to the emergency department for chief complaint of abdominal pain and left sciatic pain. Patient reports history of chronic pancreatitis. She states she has had epigastric abdominal pain that is worsening over the last week and a half. She reports associated nausea, vomiting, diarrhea that started in the last few days. She denies fevers or chills. She also endorses a sharp pain in her left sciatic region which is chronic in nature for her. She is in pain management for her sciatic pain and has taken her oxycodone 7.5 mg at home as directed. She states her last dose was at midnight and she did not vomit it back up. She denies any new back pain, numbness, weakness, fevers, bowel or bladder incontinence. Past Medical History: Peptic ulcers, diabetes Past Surgical History: Hysterectomy, cholecystectomy Social History: Daily tobacco, occasional alcohol, denies drug use Family History: Reviewed and noncontributory for presenting illness Allergies: Reviewed, see documented allergy list. REVIEW OF SYSTEMS: CONSTITUTIONAL : No fever No chills No diaphoresis No recent illness EENT: No vision changes No congestion No sore throat CARDIOVASCULAR: No chest pain No palpitations RESPIRATORY: No shortness of breath No cough No difficulty breathing GASTROINTESTINAL: abdominal pain nausea vomiting diarrhea GENITOURINARY: No dysuria No hematuria No difficulty urinating MUSCULOSKELETAL: back pain Left leg pain No arm pain SKIN: No rashes No lesions LYMPHATIC: No swollen, enlarged glands. NEUROLOGICAL: No lightheadedness No headache No weakness No paresthesias PSYCHIATRIC: No anxiety No depression PHYSICAL EXAMINATION: Vital signs reviewed, nursing noted reviewed. GENERAL: Well-appearing, obese and in no acute distress. HEAD: Atraumatic, normocephalic. EYES: Eyes appear normal, extraocular movements intact, sclera anicteric, conjunctiva are normal. ENT: nares patent, oropharynx clear without exudates. Moist mucous membranes. NECK: Normal range of motion, supple without lymphadenopathy LUNGS: Breath sounds clear to auscultation bilaterally and equal. No wheezes rales or rhonchi. HEART: Regular rate and rhythm without murmurs ABDOMEN: Soft, mild epigastric tenderness, normoactive bowel sounds. No rebound, guarding, or rigidity. No masses appreciated. EXTREMITIES: Nontender, good range of motion, no pitting or edema. Back: Back: No midline spinal tenderness, full range of motion of thoracic and lumbar spine. Left paraspinal lumbar and left gluteal tenderness to palpation NEUROLOGICAL: No focal neurological deficits. Moves all extremities spontaneously Motor and sensory grossly intact on exam. PSYCH: Normal mood, normal affect. SKIN: Warm, Dry, normal turgor, no rashes or lesions noted on exposed skin - Related Data Allergies/Adverse Reactions: aspirin [Aspirin] Allergy (Verified 12/28/18 06:29) STOMACH PAIN ibuprofen [From Motrin] Allergy (Verified 12/28/18 06:29) STOMACH PAIN iodine [Iodine] Allergy (Verified 12/28/18 06:29) Hives morphine [Morphine] Allergy (Verified 12/28/18 06:29) Generalized Itching acetaminophen [From Percocet] Adverse Reaction (Verified 12/28/18 06:29) Hallucinations meloxicam [From Mobic] Adverse Reaction (Verified 12/28/18 06:29) STOMACH PAIN ivp dye Allergy (Uncoded 12/28/18 06:29) Hives Past Medical History - Social History Smoking Status: Current Every Day Smoker Frequency of alcohol use: Occasional Drug Abuse: None Family History: Reviewed & Not Pertinent, CAD Patient has suicidal ideation: No Patient has homicidal ideation: No - Past Medical History Cardiac Medical History: Reports: Hx Hypercholesterolemia Denies: Hx Coronary Artery Disease, Hx Heart Attack, Hx Hypertension Pulmonary Medical History: Reports: Hx Bronchitis Denies: Hx Asthma, Hx COPD, Hx Pneumonia Neurological Medical History: Denies: Hx Cerebrovascular Accident, Hx Seizures Endocrine Medical History: Reports: Hx Hypothyroidism Renal/ Medical History: Denies: Hx Peritoneal Dialysis GI Medical History: Reports: Hx Gastroesophageal Reflux Disease, Hx Pancreatitis - chronic Musculoskeletal Medical History: Denies Hx Arthritis Psychiatric Medical History: Denies: Hx Depression Past Surgical History: Reports: Hx Appendectomy, Hx Breast Surgery - biopsy x 3, Hx Cholecystectomy, Hx Hysterectomy - Immunizations Hx Diphtheria, Pertussis, Tetanus Vaccination: Yes Physical Exam - Vital signs Vitals: Temp Pulse Resp BP Pulse Ox 97.7 F 81 18 137/61 H 95 12/28/18 05:46 12/28/18 05:46 12/28/18 05:46 12/28/18 05:46 12/28/18 05:46 Course - Re-evaluation Re-evalutation: 12/28/18 06:49 Vitals reviewed. Nursing notes reviewed. Patient was sleeping when I entered the room and is in no acute distress. She did receive Zofran prior to arrival by EMS and states that gave her some symptomatic relief. 12/28/18 07:40 Patient's lab work is unremarkable. She has a slight elevation of her potassium at 5.2 which was treated with IV fluids. Her lipase is normal. Patient was ordered a dose of her home pain medication. She was encouraged to follow with her primary care doctors for reevaluation of her chronic pain. Laboratory 12/28/18 12/28/18 06:40 06:40 WBC 7.5 RBC 4.24 Hgb 12.2 Hct 36.2 MCV 85 MCH 28.8 MCHC 33.7 RDW 14.7 H Plt Count 283 Seg Neutrophils % 43.8 Lymphocytes % 43.8 Monocytes % 7.9 Eosinophils % 3.6 Basophils % 0.9 Absolute Neutrophils 3.3 Absolute Lymphocytes 3.3 Absolute Monocytes 0.6 Absolute Eosinophils 0.3 Absolute Basophils 0.1 Sodium 141.5 Potassium 5.2 H Chloride 102 Carbon Dioxide 31 H Anion Gap 9 BUN 23 H Creatinine 1.07 Est GFR ( Amer) > 60 Est GFR (Non-Af Amer) 52 L Glucose 105 Calcium 10.4 H Total Bilirubin 0.3 Direct Bilirubin 0.3 Neonat Total Bilirubin Not Reportable Neonat Direct Bilirubin Not Reportable Neonat Indirect Bili Not Reportable AST 25 ALT 24 Alkaline Phosphatase 121 Total Protein 7.2 Albumin 4.4 Lipase 84.8 - Vital Signs Vital signs: Temp Pulse Resp BP Pulse Ox 97.7 F 81 18 137/61 H 95 12/28/18 05:46 12/28/18 05:46 12/28/18 05:46 12/28/18 05:46 12/28/18 05:46 - Laboratory Result Diagrams: 12/28/18 06:40 12/28/18 06:40 Laboratory results interpreted by me: 12/28/18 12/28/18 06:40 06:40 RDW 14.7 H Potassium 5.2 H Carbon Dioxide 31 H BUN 23 H Est GFR (Non-Af Amer) 52 L Calcium 10.4 H Discharge - Discharge Clinical Impression: Abdominal pain, chronic, epigastric 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 Please return to the emergency department if you develop chest pain, difficulty breathing, severe abdominal pain, or ongoing vomiting. Please follow-up with your primary care physician in 2-3 days and any other recommended physicians. If prescribed, take all medications as directed. If you have any questions or concerns do not hesitate to return the emergency department for evaluation. Continue taking your pain medication at home as prescribed Referrals: SACHI HOWARD MD [Primary Care Provider] - Follow up in 3-5 days
[2018-12-28 06:52] LABS: ABSOLUTE BASOPHILS # (AUTO) 0.1 10^3/uL (0.0-0.2); ABSOLUTE EOSINOPHILS # (AUTO) 0.3 10^3/uL (0.0-0.6); ABSOLUTE LYMPHOCYTES (AUTO) 3.3 10^3/uL (0.5-4.7); ABSOLUTE MONOCYTES (AUTO) 0.6 10^3/uL (0.1-1.4); ABSOLUTE NEUT (AUTO) 3.3 10^3/uL (1.7-8.2); BASOPHILS % (AUTO) 0.9 % (0-2); EOSINOPHILS % (AUTO) 3.6 % (0-6); HEMATOCRIT 36.2 % (36.0-47.0); HEMOGLOBIN 12.2 g/dL (12.0-15.5); LYMPHOCYTES % (AUTO) 43.8 % (13-45); MEAN CORPUSCULAR HEMOGLOBIN 28.8 pg (27.0-33.4); MEAN CORPUSCULAR HGB CONC 33.7 g/dL (32.0-36.0); MEAN CORPUSCULAR VOLUME 85 fl (80-97); MONOCYTES % (AUTO) 7.9 % (3-13); PLATELET COUNT 283 10^3/uL (150-450); RED BLOOD COUNT 4.24 10^6/uL (3.72-5.28); RED CELL DISTRIBUTION WIDTH 14.7 % (11.5-14.0); SEGMENTED NEUTROPHILS % (AUTO) 43.8 % (42-78); TOTAL CELLS COUNTED % (AUTO) 100 %; WHITE BLOOD COUNT 7.5 10^3/uL (4.0-10.5)
[2018-12-28 07:09] LABS: ALANINE AMINOTRANSFERASE 24 U/L (9-52); ALBUMIN 4.4 g/dL (3.5-5.0); ALKALINE PHOSPHATASE 121 U/L (38-126); ANION GAP 9 (5-19); ASPARTATE AMINO TRANSFERASE 25 U/L (14-36); BILIRUBIN,DIRECT 0.3 mg/dL (0.0-0.4); BILIRUBIN,TOTAL 0.3 mg/dL (0.2-1.3); BLOOD UREA NITROGEN 23 mg/dL (7-20); CALCIUM 10.4 mg/dL (8.4-10.2); CARBON DIOXIDE 31 mmol/L (22-30); CHLORIDE 102 mmol/L (98-107); GLUCOSE 105 mg/dL (75-110); LIPASE 84.8 U/L (23-300); POTASSIUM 5.2 mmol/L (3.6-5.0); SODIUM 141.5 mmol/L (137-145); TOTAL PROTEIN 7.2 g/dL (6.3-8.2)
[2018-12-28] MEDS: OXYCODONE HCL SR 10 MG TABLET PO ONE ×2 (07:35→07:37)
[2018-12-28 07:46] VITALS: BP 124/55
== END 2018-12-28 07:46 | disposition home or self-care (01) ==
LOC: ER 05:41
DX: R10.13 Epigastric pain (principal); G89.29 Other chronic pain; M54.42 Lumbago with sciatica, left side; Z79.891 Long term (current) use of opiate analgesic; R11.2 Nausea with vomiting, unspecified; R19.7 Diarrhea, unspecified; E11.9 Type 2 diabetes mellitus without complications; F17.200 Nicotine dependence, unspecified, uncomplicated; Z87.19 Personal history of other diseases of the digestive system; Z87.11 Personal history of peptic ulcer disease; Z90.49 Acquired absence of other specified parts of digestive tract; Z90.710 Acquired absence of both cervix and uterus; Z88.6 Allergy status to analgesic agent; Z88.5 Allergy status to narcotic agent; Z91.041 Radiographic dye allergy status
CPT/HCPCS: 36415; 80053; 83690; 85025; 99284

== ENCOUNTER 2019-01-12 13:30 | Emergency (ER) | payer BC ==
[2019-01-12] MEDS ORDERED: ONDANSETRON HCL INJ/PF 4 MG/2 ML SDV IV ONE (16:12)
[2019-01-12] MEDS ORDERED: NORMAL SALINE 1000 ML 1,000 ML IV ONE (16:12)
--- NOTE | 2019-01-12 16:15 | ER Document Report ---
ED Medical Screen (RME) - General Chief Complaint: Nausea/Vomiting Stated Complaint: ABDOMINAL PAIN Time Seen by Provider: 01/12/19 16:10 Primary Care Provider: SACHI HOWARD MD [Primary Care Provider] - Follow up as needed Notes: Patient is a 4-year-old female presents to the emergency department for generalized epigastric abdominal pain. Patient states she was just recently seen at this facility for acute pancreatitis. Patient states she does have an extensive history of pancreatitis. Patient states she has continued with nausea and vomiting and epigastric pain which is why she returns to the emergency room. GENERAL: Alert, interacts well. Holding her epigastric region rocking back and forth in the chair, heart rate is noted to be 72 ABDOMEN: Soft, obese, non-distended. Bowel sounds present in all 4 quadrants. Generalized epigastric abdominal pain, no right upper quadrant, no left upper quadrant pain noted I have greeted and performed a rapid initial assessment of this patient. A comprehensive ED assessment and evaluation of the patient, analysis of test results and completion of the medical decision making process will be conducted by additional ED providers. TRAVEL OUTSIDE OF THE [place] IN LAST 30 DAYS: No - Related Data Allergies/Adverse Reactions: aspirin [Aspirin] Allergy (Verified 01/12/19 13:36) STOMACH PAIN ibuprofen [From Motrin] Allergy (Verified 01/12/19 13:36) STOMACH PAIN iodine [Iodine] Allergy (Verified 01/12/19 13:36) Hives morphine [Morphine] Allergy (Verified 01/12/19 13:36) Generalized Itching acetaminophen [From Percocet] Adverse Reaction (Verified 01/12/19 13:36) Hallucinations meloxicam [From Mobic] Adverse Reaction (Verified 01/12/19 13:36) STOMACH PAIN ivp dye Allergy (Uncoded 01/12/19 13:36) Hives Past Medical History - Social History Chew tobacco use (# tins/day): No Frequency of alcohol use: Rare Drug Abuse: None - Past Medical History Cardiac Medical History: Reports: Hx Hypercholesterolemia Denies: Hx Coronary Artery Disease, Hx Heart Attack, Hx Hypertension Pulmonary Medical History: Reports: Hx Bronchitis Denies: Hx Asthma, Hx COPD, Hx Pneumonia Neurological Medical History: Denies: Hx Cerebrovascular Accident, Hx Seizures Endocrine Medical History: Reports: Hx Hypothyroidism Renal/ Medical History: Denies: Hx Peritoneal Dialysis GI Medical History: Reports: Hx Gastroesophageal Reflux Disease, Hx Pancreatitis - chronic Musculoskeltal Medical History: Denies Hx Arthritis Psychiatric Medical History: Denies: Hx Depression Past Surgical History: Reports: Hx Appendectomy, Hx Breast Surgery - biopsy x 3, Hx Cholecystectomy, Hx Hysterectomy - Immunizations Hx Diphtheria, Pertussis, Tetanus Vaccination: Yes History of Influenza Vaccine for 08/2017 - 01/2018 Season: Refused Physical Exam - Vital signs Vitals: Temp Pulse Resp BP Pulse Ox 98.9 F 75 20 134/64 H 99 01/12/19 13:48 01/12/19 13:48 01/12/19 13:48 01/12/19 13:48 01/12/19 13:48 Course - Vital Signs Vital signs: Temp Pulse Resp BP Pulse Ox 98.9 F 75 20 134/64 H 99 01/12/19 13:48 01/12/19 13:48 01/12/19 13:48 01/12/19 13:48 01/12/19 13:48 Doctor's Discharge - Discharge Referrals: SACHI HOWARD MD [Primary Care Provider] - Follow up as needed
[2019-01-12 17:31] LABS: ABSOLUTE BASOPHILS # (AUTO) 0.1 10^3/uL (0.0-0.2); ABSOLUTE EOSINOPHILS # (AUTO) 0.3 10^3/uL (0.0-0.6); ABSOLUTE LYMPHOCYTES (AUTO) 4.1 10^3/uL (0.5-4.7); ABSOLUTE MONOCYTES (AUTO) 0.5 10^3/uL (0.1-1.4); BASOPHILS % (AUTO) 1.1 % (0-2); EOSINOPHILS % (AUTO) 3.2 % (0-6); HEMATOCRIT 42.6 % (36.0-47.0); HEMOGLOBIN 14.3 g/dL (12.0-15.5); LYMPHOCYTES % (AUTO) 51.3 % (13-45); MEAN CORPUSCULAR HEMOGLOBIN 28.5 pg (27.0-33.4); MEAN CORPUSCULAR HGB CONC 33.7 g/dL (32.0-36.0); MEAN CORPUSCULAR VOLUME 85 fl (80-97); MONOCYTES % (AUTO) 6.6 % (3-13); PLATELET COUNT 344 10^3/uL (150-450); RED BLOOD COUNT 5.04 10^6/uL (3.72-5.28); RED CELL DISTRIBUTION WIDTH 14.1 % (11.5-14.0); SEGMENTED NEUTROPHILS % (AUTO) 37.8 % (42-78); TOTAL CELLS COUNTED % (AUTO) 100 %
[2019-01-12 17:47] LABS: ALANINE AMINOTRANSFERASE 17 U/L (9-52); ALBUMIN 4.8 g/dL (3.5-5.0); ALKALINE PHOSPHATASE 110 U/L (38-126); ANION GAP 9 (5-19); ASPARTATE AMINO TRANSFERASE 23 U/L (14-36); BILIRUBIN,DIRECT 0.2 mg/dL (0.0-0.4); BILIRUBIN,TOTAL 0.3 mg/dL (0.2-1.3); BLOOD UREA NITROGEN 21 mg/dL (7-20); CALCIUM 10.8 mg/dL (8.4-10.2); CARBON DIOXIDE 31 mmol/L (22-30); CHLORIDE 104 mmol/L (98-107); GLUCOSE 97 mg/dL (75-110); LIPASE 111.2 U/L (23-300); POTASSIUM 4.1 mmol/L (3.6-5.0); TOTAL PROTEIN 8.6 g/dL (6.3-8.2)
[2019-01-12 17:47] LABS: APPEARANCE,URINE SLIGHTLY-CLOUDY; BILIRUBIN,URINE NEGATIVE (NEGATIVE); COLOR,URINE YELLOW; GLUCOSE, URINE NEGATIVE (NEGATIVE); KETONES,URINE NEGATIVE (NEGATIVE); LEUKOCYTE ESTERASE,URINE MODERATE (NEGATIVE); NITRITE,URINE NEGATIVE (NEGATIVE); PROTEIN,URINE NEGATIVE (NEGATIVE); URINE SPECIFIC GRAVITY 1.027; UROBILINOGEN,URINE NEGATIVE mg/dL (<2.0)
[2019-01-12] MEDS ORDERED: OXYCODONE HCL IR 5 MG TABLET PO ONE (18:46)
[2019-01-12] MEDS ORDERED: LIDOCAINE 2% VISCOUS SOLN 20 ML UDCUP PO ONE (19:26)
[2019-01-12] MEDS ORDERED: METOCLOPRAMIDE HCL ORAL SOLN 10 MG/10 ML UDCUP PO ONE (19:26)
[2019-01-12] MEDS ORDERED: MAG HYDROX/AL HYDROX/SIMETH SUSP 30 ML UDCUP PO ONE (19:26)
--- NOTE | 2019-01-12 19:32 | ER Document Report ---
ED General - General Chief Complaint: Nausea/Vomiting Stated Complaint: ABDOMINAL PAIN Time Seen by Provider: 01/12/19 16:10 Primary Care Provider: SACHI HOWARD MD [Primary Care Provider] - Follow up as needed TRAVEL OUTSIDE OF THE [place] IN LAST 30 DAYS: No - HPI Notes: Patient is a 58-year-old female that presents to the emergency department for chief complaint of abdominal pain. Patient reports epigastric abdominal pain for the last few weeks. She states she has a history of gastritis, peptic ulcers and pancreatitis. She on February 07 states that she is in the process of getting established with a new GI doctor and is not sure what his name is. She believes she has an appointment. Patient states her epigastric pain has been constant and is similar to her chronic pancreatitis type pain. She reports nausea with one episode of vomiting today. She also reports diarrhea, 3 episodes daily, for the last 3-4 days. Patient did just stop taking amoxicillin about 5 days ago that was prescribed for sinus infection. She denies any fevers or chills. She denies chest pain and shortness of breath. Past Medical History: GERD, peptic ulcer disease, chronic pancreatitis, chronic back pain Past Surgical History: Reviewed in chart Social History: Reviewed in chart Family History: Reviewed and noncontributory for presenting illness Allergies: Reviewed, see documented allergy list. REVIEW OF SYSTEMS: CONSTITUTIONAL : No fever No chills No diaphoresis No recent illness EENT: No vision changes No congestion No sore throat CARDIOVASCULAR: No chest pain No palpitations RESPIRATORY: No shortness of breath No cough No difficulty breathing GASTROINTESTINAL: abdominal pain nausea vomiting diarrhea GENITOURINARY: No dysuria No hematuria No difficulty urinating MUSCULOSKELETAL: No back pain No leg pain No arm pain SKIN: No rashes No lesions LYMPHATIC: No swollen, enlarged glands. NEUROLOGICAL: No lightheadedness No headache No weakness No paresthesias PSYCHIATRIC: No anxiety No depression PHYSICAL EXAMINATION: Vital signs reviewed, nursing noted reviewed. GENERAL: Well-appearing, obese and in no acute distress. HEAD: Atraumatic, normocephalic. EYES: Eyes appear normal, extraocular movements intact, sclera anicteric, conjunctiva are normal. ENT: nares patent, oropharynx clear without exudates. Moist mucous membranes. NECK: Normal range of motion, supple without lymphadenopathy LUNGS: Breath sounds clear to auscultation bilaterally and equal. No wheezes rales or rhonchi. HEART: Regular rate and rhythm without murmurs ABDOMEN: Soft, mild epigastric tenderness, normoactive bowel sounds. No rebound, guarding, or rigidity. No masses appreciated. Negative Sales sign EXTREMITIES: Nontender, good range of motion, no pitting or edema. NEUROLOGICAL: No focal neurological deficits. Moves all extremities spontaneously Motor and sensory grossly intact on exam. PSYCH: Normal mood, normal affect. SKIN: Warm, Dry, normal turgor, no rashes or lesions noted on exposed skin - Related Data Allergies/Adverse Reactions: aspirin [Aspirin] Allergy (Verified 01/12/19 13:36) STOMACH PAIN ibuprofen [From Motrin] Allergy (Verified 01/12/19 13:36) STOMACH PAIN iodine [Iodine] Allergy (Verified 01/12/19 13:36) Hives morphine [Morphine] Allergy (Verified 01/12/19 13:36) Generalized Itching acetaminophen [From Percocet] Adverse Reaction (Verified 01/12/19 13:36) Hallucinations meloxicam [From Mobic] Adverse Reaction (Verified 01/12/19 13:36) STOMACH PAIN ivp dye Allergy (Uncoded 01/12/19 13:36) Hives Past Medical History - Social History Smoking Status: Former Smoker Chew tobacco use (# tins/day): No Frequency of alcohol use: Rare Drug Abuse: None Family History: Reviewed & Not Pertinent, CAD Patient has suicidal ideation: No Patient has homicidal ideation: No - Past Medical History Cardiac Medical History: Reports: Hx Hypercholesterolemia Denies: Hx Coronary Artery Disease, Hx Heart Attack, Hx Hypertension Pulmonary Medical History: Reports: Hx Bronchitis Denies: Hx Asthma, Hx COPD, Hx Pneumonia Neurological Medical History: Denies: Hx Cerebrovascular Accident, Hx Seizures Endocrine Medical History: Reports: Hx Hypothyroidism Renal/ Medical History: Denies: Hx Peritoneal Dialysis GI Medical History: Reports: Hx Gastroesophageal Reflux Disease, Hx Pancreatitis - chronic Musculoskeletal Medical History: Denies Hx Arthritis Psychiatric Medical History: Denies: Hx Depression Past Surgical History: Reports: Hx Appendectomy, Hx Breast Surgery - biopsy x 3, Hx Cholecystectomy, Hx Hysterectomy - Immunizations Hx Diphtheria, Pertussis, Tetanus Vaccination: Yes Physical Exam - Vital signs Vitals: Temp Pulse Resp BP Pulse Ox 98.9 F 75 20 134/64 H 99 01/12/19 13:48 01/12/19 13:48 01/12/19 13:48 01/12/19 13:48 01/12/19 13:48 Course - Re-evaluation Re-evalutation: 01/12/19 19:29 Vitals reviewed. Nursing notes reviewed. Patient appears well-hydrated and in no acute distress. She was given oxycodone and GI cocktail for symptomatic relief. Patient also received IV fluid bolus. Her blood work shows normal CBC and CMP. She has no elevated lipase and is tolerating oral intake, I do not suspect acute pancreatitis. She has no leukocytosis to suggest C. difficile in the setting of diarrhea with recent antibiotic use. She is also only having 3 episodes of loose stool daily and I clinically do not suspect C. difficile infection. Patient's epigastric tenderness is chronic for her. She has had multiple EGDs and evaluation by PCP and GI. She was encouraged to keep her appointment with her new GI physician as she may require another EGD. Patient told to follow with her primary care doctor in the next few days for close reevaluation. She will continue to take her Nexium and Percocet as prescribed. She will return to the emergency room for new or worsening symptoms or if she is unable to tolerate oral intake. Patient in agreement with plan of care and stable at discharge. Laboratory 01/12/19 01/12/19 01/12/19 17:20 17:20 17:30 WBC 8.0 RBC 5.04 Hgb 14.3 Hct 42.6 MCV 85 MCH 28.5 MCHC 33.7 RDW 14.1 H Plt Count 344 Seg Neutrophils % 37.8 L Lymphocytes % 51.3 H Monocytes % 6.6 Eosinophils % 3.2 Basophils % 1.1 Absolute Neutrophils 3.0 Absolute Lymphocytes 4.1 Absolute Monocytes 0.5 Absolute Eosinophils 0.3 Absolute Basophils 0.1 Sodium 144.0 Potassium 4.1 Chloride 104 Carbon Dioxide 31 H Anion Gap 9 BUN 21 H Creatinine 0.88 Est GFR ( Amer) > 60 Est GFR (Non-Af Amer) > 60 Glucose 97 Calcium 10.8 H Total Bilirubin 0.3 Direct Bilirubin 0.2 Neonat Total Bilirubin Not Reportable Neonat Direct Bilirubin Not Reportable Neonat Indirect Bili Not Reportable AST 23 ALT 17 Alkaline Phosphatase 110 Total Protein 8.6 H Albumin 4.8 Lipase 111.2 Urine Color YELLOW Urine Appearance SLIGHTLY-CLOUDY Urine pH 5.0 Ur Specific [place] 1.027 Urine Protein NEGATIVE Urine Glucose (UA) NEGATIVE Urine Ketones NEGATIVE Urine Blood NEGATIVE Urine Nitrite NEGATIVE Urine Bilirubin NEGATIVE Urine Urobilinogen NEGATIVE Ur Leukocyte Esterase MODERATE H Urine WBC (Auto) 4 Urine RBC (Auto) 3 Squamous Epi Cells Auto 13 Urine Mucus (Auto) RARE Urine Ascorbic Acid NEGATIVE - Vital Signs Vital signs: Temp Pulse Resp BP Pulse Ox 98.9 F 75 20 134/64 H 99 01/12/19 13:48 01/12/19 13:48 01/12/19 13:48 01/12/19 13:48 01/12/19 13:48 - Laboratory Result Diagrams: 01/12/19 17:20 01/12/19 17:20 Laboratory results interpreted by me: 01/12/19 01/12/19 01/12/19 17:20 17:20 17:30 RDW 14.1 H Seg Neutrophils % 37.8 L Lymphocytes % 51.3 H Carbon Dioxide 31 H BUN 21 H Calcium 10.8 H Total Protein 8.6 H Ur Leukocyte Esterase MODERATE H Discharge - Discharge Clinical Impression: Abdominal pain Qualifiers: Abdominal location: epigastric Qualified Code(s): R10.13 - Epigastric pain Condition: Stable Disposition: HOME, SELF-CARE Instructions: Abdominal Pain ([facility]) Additional Instructions: Please return to the emergency department if you have any worsening, or concern of your symptoms. Please return to the emergency department if you develop chest pain, difficulty breathing, severe abdominal pain, or ongoing vomiting. Please follow-up with your primary care physician in 2-3 days and any other recommended physicians. If prescribed, take all medications as directed. If you have any questions or concerns do not hesitate to return the emergency department for evaluation. Avoid any spicy food, fried food, citrus food, caffeine, alcohol, tobacco, peppermint and chocolate as these foods may aggravate your abdominal pain. Referrals: SACHI HOWARD MD [Primary Care Provider] - Follow up in 3-5 days
[2019-01-12 19:44] VITALS: BP 124/93
== END 2019-01-12 19:44 | disposition home or self-care (01) ==
LOC: ER 13:30
DX: R10.13 Epigastric pain (principal); R11.2 Nausea with vomiting, unspecified; E78.00 Pure hypercholesterolemia, unspecified; E03.9 Hypothyroidism, unspecified; Z90.49 Acquired absence of other specified parts of digestive tract; Z90.710 Acquired absence of both cervix and uterus; Z88.6 Allergy status to analgesic agent
CPT/HCPCS: 99284; 96361; 96374; 36415; 87086; 83690; 85025; 80053; 81001; J3490; J2405; J7030

== ENCOUNTER → 2019-02-17 | Day surgery (SDC) | payer BC ==
[~2019-02-17] MED LIST: LIDOCAINE 2% JELLY 5 ML TUBE ONE
== END ==
LOC: END 07:22
PROVIDERS: ATTEND Internal Medicine Gastroenterology
DX: R13.10 Dysphagia, unspecified (principal)
CPT/HCPCS: 91010

== ENCOUNTER → 2019-03-26 | Day surgery (SDC) | payer BC | LOC: END 09:18 | PROVIDERS: ATTEND Internal Medicine Gastroenterology | DX: R13.10 Dysphagia, unspecified (principal) | CPT/HCPCS: 91010 ==

== ENCOUNTER 2019-04-24 12:36 | Observation (INO) | payer BC ==
--- NOTE | 2019-04-24 13:38 | ER Document Report ---
ED Medical Screen (RME) - General Chief Complaint: Shoulder Pain Stated Complaint: SHOULDER PAIN Time Seen by Provider: 04/24/19 13:24 Notes: 59-year-old female with hypertension and recent tooth extraction on Augmentin presents to the emergency department with right neck and shoulder pain for 1 week. Yesterday she developed nausea, shortness of breath, and diaphoresis. The pain radiates into her right chest. There is no inciting injury to the shoulder. Nothing provokes or palliates the pain. She was at work and could not tolerate it anymore so she went to the nurses station and then they told her to come to the emergency department for evaluation. TRAVEL OUTSIDE OF THE [place] IN LAST 30 DAYS: No - Related Data Allergies/Adverse Reactions: aspirin [Aspirin] Allergy (Verified 04/24/19 12:37) STOMACH PAIN ibuprofen [From Motrin] Allergy (Verified 04/24/19 12:37) STOMACH PAIN iodine [Iodine] Allergy (Verified 04/24/19 12:37) Hives morphine [Morphine] Allergy (Verified 04/24/19 12:37) Generalized Itching acetaminophen [From Percocet] Adverse Reaction (Verified 04/24/19 12:37) Hallucinations meloxicam [From Mobic] Adverse Reaction (Verified 04/24/19 12:37) STOMACH PAIN ivp dye Allergy (Uncoded 04/24/19 12:37) Hives Past Medical History - Social History Frequency of alcohol use: Occasional Drug Abuse: None - Past Medical History Cardiac Medical History: Reports: Hx Hypercholesterolemia Denies: Hx Coronary Artery Disease, Hx Heart Attack, Hx Hypertension Pulmonary Medical History: Reports: Hx Bronchitis Denies: Hx Asthma, Hx COPD, Hx Pneumonia Neurological Medical History: Denies: Hx Cerebrovascular Accident, Hx Seizures Endocrine Medical History: Reports: Hx Hypothyroidism Renal/ Medical History: Denies: Hx Peritoneal Dialysis GI Medical History: Reports: Hx Gastroesophageal Reflux Disease, Hx Pancreatitis - chronic Musculoskeltal Medical History: Denies Hx Arthritis Psychiatric Medical History: Denies: Hx Depression Past Surgical History: Reports: Hx Appendectomy, Hx Breast Surgery - biopsy x 3, Hx Cholecystectomy, Hx Hysterectomy - Immunizations Hx Diphtheria, Pertussis, Tetanus Vaccination: Yes History of Influenza Vaccine for 08/2017 - 01/2018 Season: Refused Physical Exam - Vital signs Vitals: Temp Pulse Resp BP Pulse Ox 97.9 F 75 22 H 157/70 H 97 04/24/19 12:43 04/24/19 12:43 04/24/19 12:43 04/24/19 12:43 04/24/19 12:43 Course - Vital Signs Vital signs: Temp Pulse Resp BP Pulse Ox 97.9 F 75 22 H 157/70 H 97 04/24/19 12:43 04/24/19 12:43 04/24/19 12:43 04/24/19 12:43 04/24/19 12:43
--- NOTE | 2019-04-24 14:16 | ER Document Report ---
ED General - General Chief Complaint: Shoulder Pain Stated Complaint: SHOULDER PAIN Time Seen by Provider: 04/24/19 13:24 Notes: Patient is a 59-year-old female with history of hypertension and prediabetic that presents to the emergency department for chief complaint of right shoulder pain and ear pain. Patient states she has 2 complaints, she has some ear pain that started on Saturday, she had her tooth pulled on Saturday from a dentist, she went back to the dentist, and he told her it was the ear so then she went to ENT and they told her it was her tooth causing the pain. She is not sure but it is causing her some discomfort she describes as a 4 out of 10. She denies any nausea, vomiting, fevers, chills, night sweats. Her other complaints she is having is right shoulder pain she describes as a throbbing ache, that is worse with exertion and better with rest. She has had some mild shortness of breath associated as well. The pain at this time is resolved at rest. She states she was recently diagnosed with hypertension, she is prediabetic, denies history of cardiac disease. She is not sure she is had a stress test anytime recently. She does smoke cigarettes on a daily basis for many years. Past Medical History: Prediabetes, IBS, hypertension, chronic pancreatitis, GERD Past Surgical History: Hysterectomy, cholecystectomy Social History: Admits to smoking cigarettes daily, denies alcohol or drug use. Family History: Reviewed and noncontributory for presenting illness Allergies: Reviewed, see documented allergy list. REVIEW OF SYSTEMS: Other than noted above, the 12 point review of systems was reviewed with the patient and were negative, all pertinent findings are included in the HPI. PHYSICAL EXAMINATION: Vital signs reviewed, nursing noted reviewed. GENERAL: Well-appearing, well-nourished and in no acute distress. HEAD: Atraumatic, normocephalic. EYES: Eyes appear normal, extraocular movements intact, sclera anicteric, conjunctiva are normal. ENT: nares patent, oropharynx clear without exudates. Moist mucous membranes. TMs appear normal bilaterally NECK: Normal range of motion, supple without lymphadenopathy LUNGS: Breath sounds clear to auscultation bilaterally and equal. No wheezes ra les or rhonchi. No chest wall tenderness. HEART: Regular rate and rhythm without murmurs ABDOMEN: Soft, nontender, normoactive bowel sounds. No rebound, guarding, or rigidity. No masses appreciated. EXTREMITIES: Nontender, good range of motion, no pitting or edema. NEUROLOGICAL: No focal neurological deficits. Moves all extremities spontaneously Motor and sensory grossly intact on exam. PSYCH: Normal mood, normal affect. SKIN: Warm, Dry, normal turgor, no rashes or lesions noted on exposed skin TRAVEL OUTSIDE OF THE [place] IN LAST 30 DAYS: No - Related Data Allergies/Adverse Reactions: aspirin [Aspirin] Allergy (Verified 04/24/19 12:37) STOMACH PAIN ibuprofen [From Motrin] Allergy (Verified 04/24/19 12:37) STOMACH PAIN iodine [Iodine] Allergy (Verified 04/24/19 12:37) Hives morphine [Morphine] Allergy (Verified 04/24/19 12:37) Generalized Itching acetaminophen [From Percocet] Adverse Reaction (Verified 04/24/19 12:37) Hallucinations meloxicam [From Mobic] Adverse Reaction (Verified 04/24/19 12:37) STOMACH PAIN ivp dye Allergy (Uncoded 04/24/19 12:37) Hives Past Medical History - Social History Smoking Status: Current Every Day Smoker Frequency of alcohol use: Occasional Drug Abuse: None Family History: Reviewed & Not Pertinent, CAD Patient has suicidal ideation: No Patient has homicidal ideation: No - Past Medical History Cardiac Medical History: Reports: Hx Hypercholesterolemia Denies: Hx Coronary Artery Disease, Hx Heart Attack, Hx Hypertension Pulmonary Medical History: Reports: Hx Bronchitis Denies: Hx Asthma, Hx COPD, Hx Pneumonia Neurological Medical History: Denies: Hx Cerebrovascular Accident, Hx Seizures Endocrine Medical History: Reports: Hx Hypothyroidism Renal/ Medical History: Denies: Hx Peritoneal Dialysis GI Medical History: Reports: Hx Gastroesophageal Reflux Disease, Hx Pancreatitis - chronic Musculoskeletal Medical History: Denies Hx Arthritis Psychiatric Medical History: Denies: Hx Depression Past Surgical History: Reports: Hx Appendectomy, Hx Breast Surgery - biopsy x 3, Hx Cholecystectomy, Hx Hysterectomy - Immunizations Hx Diphtheria, Pertussis, Tetanus Vaccination: Yes Physical Exam - Vital signs Vitals: Temp Pulse Resp BP Pulse Ox 97.9 F 75 22 H 157/70 H 97 04/24/19 12:43 04/24/19 12:43 04/24/19 12:43 04/24/19 12:43 04/24/19 12:43 Course - Re-evaluation Re-evalutation: Patient seen and examined vital signs reviewed. Laboratory data and imaging were ordered as appropriate for the patient's presenting symptoms and complaint, with consideration of any critical or life threatening conditions that may be associated with their obtained history and exam as noted above. Patient was treated with morphine, and Zofran, patient is allergic to aspirin, therefore is not administered despite having her chest pain Results were reviewed when available and demonstrated negative troponin initially, negative chest x-ray, EKG did demonstrate T wave inversions that appear to be new since August 2018, as noted in EKG interpretation section. The patient was re-evaluated and was stable, no complaints Evaluation was most consistent with chest pain, and a high risk patient, with new EKG changes Results were discussed with the patient at this point after careful consideration I feel that that patient should be admitted to the hospital. This was discussed with the patient that it is in the best interest for their care to be admitted for further evaluation and management. Patient agreed with this plan of care. A call was placed to the admitted physician, Dr. Rodriguez who graciously accepted the patient onto their service. *Note is created using voice recognition software and may contain spelling, syntax or grammatical errors. Laboratory 04/24/19 04/24/19 04/24/19 14:34 14:34 14:34 WBC 6.2 RBC 3.85 Hgb 10.8 L Hct 32.3 L MCV 84 MCH 28.0 MCHC 33.4 RDW 14.7 H Plt Count 296 Seg Neutrophils % 52.1 Lymphocytes % 38.4 Monocytes % 6.8 Eosinophils % 1.8 Basophils % 0.9 Absolute Neutrophils 3.2 Absolute Lymphocytes 2.4 Absolute Monocytes 0.4 Absolute Eosinophils 0.1 Absolute Basophils 0.1 Sodium Cancelled Potassium Cancelled Chloride Cancelled Carbon Dioxide Cancelled Anion Gap Cancelled BUN Cancelled Creatinine Cancelled Est GFR ( Amer) Cancelled Est GFR (Non-Af Amer) Cancelled Glucose Cancelled Calcium Cancelled Total Bilirubin Cancelled Direct Bilirubin Cancelled Neonat Total Bilirubin Cancelled Neonat Direct Bilirubin Cancelled Neonat Indirect Bili Cancelled AST Cancelled ALT Cancelled Alkaline Phosphatase Cancelled Troponin I Cancelled Total Protein Cancelled Albumin Cancelled 04/24/19 04/24/19 16:10 16:10 WBC RBC Hgb Hct MCV MCH MCHC RDW Plt Count Seg Neutrophils % Lymphocytes % Monocytes % Eosinophils % Basophils % Absolute Neutrophils Absolute Lymphocytes Absolute Monocytes Absolute Eosinophils Absolute Basophils Sodium 139.3 Potassium 4.8 Chloride 102 Carbon Dioxide 29 Anion Gap 8 BUN 17 Creatinine 1.00 Est GFR ( Amer) > 60 Est GFR (Non-Af Amer) 56 L Glucose 86 Calcium 9.3 Total Bilirubin 0.2 Direct Bilirubin 0.2 Neonat Total Bilirubin Not Reportable Neonat Direct Bilirubin Not Reportable Neonat Indirect Bili Not Reportable AST 29 ALT 31 Alkaline Phosphatase 126 Troponin I < 0.012 Total Protein 6.5 Albumin 4.1 Chest X-Ray 04/24/19 13:38 IMPRESSION: HEART ENLARGED WITHOUT FAILURE. NO OTHER SIGNIFICANT RADIOGRAPHIC FINDING IN THE CHEST. - Vital Signs Vital signs: Temp Pulse Resp BP Pulse Ox 97.9 F 75 26 H 161/76 H 91 L 04/24/19 12:43 04/24/19 12:43 04/24/19 16:01 04/24/19 16:01 04/24/19 16:01 - Laboratory Result Diagrams: 04/24/19 14:34 04/24/19 16:10 Laboratory results interpreted by me: 04/24/19 04/24/19 14:34 16:10 Hgb 10.8 L Hct 32.3 L RDW 14.7 H Est GFR (Non-Af Amer) 56 L - EKG Interpretation by Me Additional EKG results interpreted by me: EKG demonstrates sinus rhythm with a ventricular rate of 70 bpm, borderline left axis deviation, QTC 488 ms, there are T wave inversions in leads I, aVL, V3 through V6, concerning for lateral ischemia, this is compared with a prior EKG from 09/07/2018, with significant change. 04/24/19 14:42 EKG repeat demonstrates sinus rhythm with a ventricular rate of 70 bpm, normal axis, QTC 458 ms, there are T wave inversions in leads I, aVL, V3 through V6, unchanged from her prior during this visit. Discharge - Discharge Clinical Impression: Acute electrocardiogram changes Chest pain Qualifiers: Chest pain type: other chest pain Qualified Code(s): R07.89 - Other chest pain Condition: Stable Disposition: ADMITTED OBSERVATION Admitting Provider: Michael (Hospitalist) Unit Admitted: Telemetry
--- NOTE | 2019-04-24 14:32 | RADIOLOGY REPORT (SQ) ---
EXAM DESCRIPTION: CHEST SINGLE VIEW COMPLETED DATE/TIME: 04/24/2019 2:03 pm REASON FOR STUDY: SOB/CP COMPARISON: 11/02/2016. NUMBER OF VIEWS: One view. TECHNIQUE: Single frontal radiographic view of the chest acquired. LIMITATIONS: None. FINDINGS: LUNGS AND PLEURA: No opacities, masses or pneumothorax. No pleural effusion. MEDIASTINUM AND HILAR STRUCTURES: No masses. Contour normal. HEART AND VASCULAR STRUCTURES: Heart enlarged without failure. Normal vasculature. BONES: No acute findings. HARDWARE: None in the chest. OTHER: No other significant finding. IMPRESSION: HEART ENLARGED WITHOUT FAILURE. NO OTHER SIGNIFICANT RADIOGRAPHIC FINDING IN THE CHEST. TECHNICAL DOCUMENTATION: JOB ID: [id number] [facility]- All Rights Reserved Reading location - IP/workstation name: [email or web address]
[2019-04-24 14:57] LABS: ABSOLUTE BASOPHILS # (AUTO) 0.1 10^3/uL (0.0-0.2); ABSOLUTE EOSINOPHILS # (AUTO) 0.1 10^3/uL (0.0-0.6); ABSOLUTE LYMPHOCYTES (AUTO) 2.4 10^3/uL (0.5-4.7); ABSOLUTE MONOCYTES (AUTO) 0.4 10^3/uL (0.1-1.4); ABSOLUTE NEUT (AUTO) 3.2 10^3/uL (1.7-8.2); BASOPHILS % (AUTO) 0.9 % (0-2); EOSINOPHILS % (AUTO) 1.8 % (0-6); HEMATOCRIT 32.3 % (36.0-47.0); HEMOGLOBIN 10.8 g/dL (12.0-15.5); LYMPHOCYTES % (AUTO) 38.4 % (13-45); MEAN CORPUSCULAR HGB CONC 33.4 g/dL (32.0-36.0); MEAN CORPUSCULAR VOLUME 84 fl (80-97); MONOCYTES % (AUTO) 6.8 % (3-13); PLATELET COUNT 296 10^3/uL (150-450); RED BLOOD COUNT 3.85 10^6/uL (3.72-5.28); RED CELL DISTRIBUTION WIDTH 14.7 % (11.5-14.0); SEGMENTED NEUTROPHILS % (AUTO) 52.1 % (42-78); TOTAL CELLS COUNTED % (AUTO) 100 %; WHITE BLOOD COUNT 6.2 10^3/uL (4.0-10.5)
[2019-04-24] MEDS ORDERED: ONDANSETRON HCL INJ/PF 4 MG/2 ML SDV IV ONE (14:57)
[2019-04-24] MEDS ORDERED: FENTANYL CITRATE INJ/PF 100 MCG/2 ML AMPUL IV ONE (14:57)
[2019-04-24 16:48] LABS: ALANINE AMINOTRANSFERASE 31 U/L (9-52); ALBUMIN 4.1 g/dL (3.5-5.0); ALKALINE PHOSPHATASE 126 U/L (38-126); ANION GAP 8 (5-19); ASPARTATE AMINO TRANSFERASE 29 U/L (14-36); BILIRUBIN,DIRECT 0.2 mg/dL (0.0-0.4); BILIRUBIN,TOTAL 0.2 mg/dL (0.2-1.3); BLOOD UREA NITROGEN 17 mg/dL (7-20); CALCIUM 9.3 mg/dL (8.4-10.2); CARBON DIOXIDE 29 mmol/L (22-30); CHLORIDE 102 mmol/L (98-107); GLUCOSE 86 mg/dL (75-110); POTASSIUM 4.8 mmol/L (3.6-5.0); SODIUM 139.3 mmol/L (137-145); TOTAL PROTEIN 6.5 g/dL (6.3-8.2)
--- NOTE | 2019-04-24 17:43 | PDOC H&P ---
History of Present Illness Admission Date/PCP: SACHI HOWARD MD History of Present Illness: FLORENCE GR is a 59 year old black female patient with past medical history of hypertension, morbid obesity, chronic pancreatitis, hypothyroidism, prediabetes and everyday smoker, presented with chief complaint of chest pain. Patient reported that she has been in her usual baseline state of up until yesterday when she started to have sudden onset right-sided chest pain radiating to her back. No aggravating or ameliorating factor identified. Patient denies any fever chills palpitation or diaphoresis. Her chest pain is reproducible by palpation. Her first-rate cardiac enzymes negative her EKG revealed new T wave inversion in lead III and 4. No urinary complaints, no nausea, no vomiting, abdominal pain or diarrhea. Past Medical History Cardiac Medical History: Reports: Hyperlipidema Denies: Coronary Artery Disease, Myocardial Infarction, Hypertension Pulmonary Medical History: Reports: Bronchitis Denies: Asthma, Chronic Obstructive Pulmonary Disease (COPD), Pneumonia Neurological Medical History: Denies: Seizures Endocrine Medical History: Reports: Hypothyroidism GI Medical History: Reports: Gastroesophageal Reflux Disease Musculoskeltal Medical History: Denies: Arthritis Psychiatric Medical History: Denies: Depression Hematology: Denies: Anemia Past Surgical History Past Surgical History: Reports: Appendectomy, Cholecystectomy, Hysterectomy Social History Smoking Status: Current Every Day Smoker Frequency of Alcohol Use: Occasional Hx Recreational Drug Use: No Drugs: None Hx Prescription Drug Abuse: No - Advance Directive Resuscitation Status: Full Code Family History Family History: Reviewed & Not Pertinent, CAD, DM, Hypertension Parental Family History Reviewed: Yes Children Family History Reviewed: Yes Sibling(s) Family History Reviewed.: Yes Medication/Allergy Home Medications: Pantoprazole Sodium [Protonix] 40 mg PO DAILY 09/08/18 Oxycodone HCl [Oxy-Ir 5 mg Tablet] 5 mg PO Q4HP PRN 14 Days #60 tablet 09/12/18 Allergies/Adverse Reactions: aspirin [Aspirin] Allergy (Verified 04/24/19 12:37) STOMACH PAIN ibuprofen [From Motrin] Allergy (Verified 04/24/19 12:37) STOMACH PAIN iodine [Iodine] Allergy (Verified 04/24/19 12:37) Hives morphine [Morphine] Allergy (Verified 04/24/19 12:37) Generalized Itching acetaminophen [From Percocet] Adverse Reaction (Verified 04/24/19 12:37) Hallucinations meloxicam [From Mobic] Adverse Reaction (Verified 04/24/19 12:37) STOMACH PAIN ivp dye Allergy (Uncoded 04/24/19 12:37) Hives Review of Systems Constitutional: ABSENT: chills, fever(s), headache(s), weight gain, weight loss Eyes: ABSENT: visual disturbances Ears: ABSENT: hearing changes Cardiovascular: PRESENT: chest pain Respiratory: ABSENT: cough, hemoptysis Gastrointestinal: ABSENT: abdominal pain, constipation, diarrhea, hematemesis, hematochezia, nausea, vomiting Genitourinary: ABSENT: dysuria, hematuria Musculoskeletal: ABSENT: joint swelling Integumentary: ABSENT: rash, wounds Neurological: ABSENT: abnormal gait, abnormal speech, confusion, dizziness, focal weakness, syncope Psychiatric: ABSENT: anxiety, depression, homidical ideation, suicidal ideation Endocrine: ABSENT: cold intolerance, heat intolerance, polydipsia, polyuria Hematologic/Lymphatic: ABSENT: easy bleeding, easy bruising Physical Exam Vital Signs: Temp Pulse Resp BP Pulse Ox 97.9 F 75 26 H 161/76 H 91 L 04/24/19 12:43 04/24/19 12:43 04/24/19 16:01 04/24/19 16:01 04/24/19 16:01 Intake & Output 04/23/19 04/24/19 04/25/19 06:59 06:59 06:59 Weight 107.9 kg General appearance: PRESENT: morbidly obese Head exam: PRESENT: atraumatic Eye exam: PRESENT: conjunctiva pink Teeth exam: PRESENT: poor dentation Neck exam: ABSENT: carotid bruit, JVD, lymphadenopathy, thyromegaly Respiratory exam: PRESENT: clear to auscultation martín. ABSENT: rales, rhonchi, wheezes GI/Abdominal exam: PRESENT: normal bowel sounds, soft. ABSENT: distended, guarding, mass, organolmegaly, rebound, tenderness Neurological exam: PRESENT: alert, awake, oriented to person, oriented to place, oriented to time, oriented to situation Results Laboratory Results: 04/24/19 14:34 04/24/19 16:10 04/24/19 04/24/19 04/24/19 14:34 14:34 16:10 WBC 6.2 RBC 3.85 Hgb 10.8 L Hct 32.3 L MCV 84 MCH 28.0 MCHC 33.4 RDW 14.7 H Plt Count 296 Seg Neutrophils % 52.1 Lymphocytes % 38.4 Monocytes % 6.8 Eosinophils % 1.8 Basophils % 0.9 Absolute Neutrophils 3.2 Absolute Lymphocytes 2.4 Absolute Monocytes 0.4 Absolute Eosinophils 0.1 Absolute Basophils 0.1 Sodium Cancelled 139.3 Potassium Cancelled 4.8 Chloride Cancelled 102 Carbon Dioxide Cancelled 29 Anion Gap Cancelled 8 BUN Cancelled 17 Creatinine Cancelled 1.00 Est GFR ( Amer) Cancelled > 60 Est GFR (Non-Af Amer) Cancelled 56 L Glucose Cancelled 86 Calcium Cancelled 9.3 Total Bilirubin Cancelled 0.2 AST Cancelled 29 ALT Cancelled 31 Alkaline Phosphatase Cancelled 126 Total Protein Cancelled 6.5 Albumin Cancelled 4.1 04/24/19 04/24/19 14:34 16:10 Troponin I Cancelled < 0.012 Impressions: Chest X-Ray 04/24/19 13:38 IMPRESSION: HEART ENLARGED WITHOUT FAILURE. NO OTHER SIGNIFICANT RADIOGRAPHIC FINDING IN THE CHEST. Assessment and Plan - Diagnosis (1) Chest pain Qualifiers: Chest pain type: other chest pain Qualified Code(s): R07.89 - Other chest pain; R07.8 - Other chest pain Is this a current diagnosis for this admission?: Yes Plan: Her chest pain is reproducible. Her troponins versus negative But patient has EKG changes with T wave inversion at lead 4. Since patient has multiple risk factor for acute coronary syndrome I think it is appropriate to admit her for observation and trend her cardiac enzymes and repeat EKG. (2) Morbid obesity with BMI of 40.0-44.9, adult Is this a current diagnosis for this admission?: Yes Plan: Patient advised to do lifestyle modification. (3) Hypothyroidism (acquired) Is this a current diagnosis for this admission?: Yes Plan: Continue her home Synthroid. (4) Tobacco dependence Is this a current diagnosis for this admission?: Yes Plan: Patient encouraged and counseled to quit smoking.
[2019-04-24] MEDS ORDERED: NITROGLYCERIN 5 MG (0.2 MG/HR) PATCH.TD24 TD ONE ×2 (19:00→22:00)
[2019-04-24] MEDS: FAMOTIDINE 20 MG TABLET PO SCH (21:40)
[2019-04-24] MEDS: ENOXAPARIN SODIUM INJ 40 MG/0.4 ML DISP.SYRIN SUBCUT SCH (21:45)
[2019-04-24] MEDS ORDERED: ENOXAPARIN SODIUM INJ 40 MG/0.4 ML DISP.SYRIN SUBCUT ONE (22:00)
--- NOTE | 2019-04-24 22:22 | EKG REPORT ---
SEVERITY:- ABNORMAL ECG - SINUS RHYTHM LVH WITH SECONDARY REPOLARIZATION ABNORMALITY : Confirmed by: Sheldon Huff MD 24-Apr-2019 22:21:27
--- NOTE | 2019-04-24 22:22 | EKG REPORT ---
SEVERITY:- ABNORMAL ECG - SINUS RHYTHM LVH WITH SECONDARY REPOLARIZATION ABNORMALITY BORDERLINE PROLONGED QT INTERVAL : Confirmed by: Sheldon Huff MD 24-Apr-2019 22:21:42
[2019-04-24] MEDS ORDERED: ACETAMINOPHEN 325 MG TABLET PO PRN (23:34)
[2019-04-24] MEDS ORDERED: KETOROLAC TROMETHAMINE INJ/PF 30 MG/1 ML SDV IV PRN (23:34)
[2019-04-25] MEDS: FAMOTIDINE 20 MG TABLET PO SCH ×2 (09:37→21:27)
[2019-04-25] MEDS: ENOXAPARIN SODIUM INJ 40 MG/0.4 ML DISP.SYRIN SUBCUT SCH (09:37)
[2019-04-25] MEDS ORDERED: DEXTROSE 40% GEL 15 GM TUBE X 2 PO PRN (14:00)
[2019-04-25] MEDS ORDERED: DEXTROSE 50%-WATER SYRINGE 25 GM/50 ML DOSE IV PRN (14:00)
[2019-04-25] MEDS ORDERED: DEXTROSE 40% GEL 15 GM TUBE PO PRN (14:00)
[2019-04-25] MEDS ORDERED: DEXTROSE 50%-WATER SYRINGE 12.5 GM/25 ML DOSE IV PRN (14:00)
[2019-04-25] MEDS ORDERED: GLUCAGON,HUMAN RECOMB 1 MG INJ IM PRN (14:00)
[2019-04-25] MEDS: INSULIN LISPRO 100 UNIT/ML 3 ML VIAL SUBCUT SCH ×2 (17:38→21:27)
[2019-04-25] MEDS: METFORMIN HCL 500 MG TABLET PO SCH (17:42)
--- NOTE | 2019-04-26 07:25 | PDOC PROGRESS REPORT ---
Subjective Progress Note for:: 04/25/19 Subjective:: Patient seen resting in bed. States she complains of right-sided chest pain. Patient has multiple allergy to nonsteroidal anti-inflammatory agent is, morphine and acetaminophen. He was given fentanyl and did not have any reaction. Reason For Visit: CHEST PAIN Physical Exam Vital Signs: Temp Pulse Resp BP Pulse Ox 98.4 F 64 16 108/48 L 100 04/26/19 00:23 04/26/19 00:23 04/26/19 00:23 04/26/19 00:23 04/26/19 00:23 Intake & Output 04/25/19 04/26/19 04/27/19 06:59 06:59 06:59 Intake Total 310 820 Balance 310 820 Weight 105.7 kg 106.3 kg General appearance: PRESENT: no acute distress Head exam: PRESENT: atraumatic Teeth exam: PRESENT: poor dentation Neck exam: ABSENT: carotid bruit, JVD, lymphadenopathy, thyromegaly GI/Abdominal exam: PRESENT: normal bowel sounds, soft. ABSENT: distended, guarding, mass, organolmegaly, rebound, tenderness Neurological exam: PRESENT: alert, awake, oriented to person, oriented to place, oriented to time, oriented to situation Results Laboratory Results: 04/24/19 14:34 04/24/19 16:10 04/25/19 06:18 TSH 1.19 04/24/19 04/24/19 04/24/19 14:34 16:10 18:00 Troponin I Cancelled < 0.012 < 0.012 04/24/19 04/25/19 23:56 06:18 Troponin I 0.014 < 0.012 Impressions: Chest X-Ray 04/24/19 13:38 IMPRESSION: HEART ENLARGED WITHOUT FAILURE. NO OTHER SIGNIFICANT RADIOGRAPHIC FINDING IN THE CHEST. Assessment and Plan - Diagnosis (1) Chest pain Qualifiers: Chest pain type: other chest pain Qualified Code(s): R07.89 - Other chest pain; R07.8 - Other chest pain Is this a current diagnosis for this admission?: Yes Plan: Her 3 sets of cardiac enzymes are negative and no EKG changes. (2) Morbid obesity with BMI of 40.0-44.9, adult Is this a current diagnosis for this admission?: Yes Plan: Patient advised to do lifestyle modification. (3) Hypothyroidism (acquired) Is this a current diagnosis for this admission?: Yes Plan: Continue her home Synthroid. (4) Tobacco dependence Is this a current diagnosis for this admission?: Yes Plan: Patient encouraged and counseled to quit smoking.
[2019-04-26] MEDS: ONDANSETRON 4 MG TAB.RAPDIS PO PRN ×2 (08:18→18:05)
[2019-04-26] MEDS: METFORMIN HCL 500 MG TABLET PO SCH ×2 (08:20→17:26)
[2019-04-26] MEDS: INSULIN LISPRO 100 UNIT/ML 3 ML VIAL SUBCUT SCH ×4 (08:21→21:48)
[2019-04-26] MEDS: FAMOTIDINE 20 MG TABLET PO SCH ×2 (09:58→21:47)
[2019-04-26] MEDS: ENOXAPARIN SODIUM INJ 40 MG/0.4 ML DISP.SYRIN SUBCUT SCH (09:58)
[2019-04-27] MEDS: INSULIN LISPRO 100 UNIT/ML 3 ML VIAL SUBCUT SCH ×3 (08:03→16:33)
[2019-04-27] MEDS: METFORMIN HCL 500 MG TABLET PO SCH (08:32)
[2019-04-27] MEDS: ONDANSETRON 4 MG TAB.RAPDIS PO PRN (08:35)
[2019-04-27] MEDS: ENOXAPARIN SODIUM INJ 40 MG/0.4 ML DISP.SYRIN SUBCUT SCH (10:00)
[2019-04-27] MEDS: FAMOTIDINE 20 MG TABLET PO SCH (13:44)
[2019-04-27] MEDS ORDERED: REGADENOSON INJ 0.4 MG/5 ML DISP.SYRIN IV ONE (15:31)
--- NOTE | 2019-04-27 16:17 | PDOC DISCHARGE SUMMARY ---
General - Admit/Disc Date/PCP Admission Date/Primary Care Provider: 04/24/19 17:49 SACHI HOWARD MD Discharge Date: 04/27/19 - Discharge Diagnosis (1) Chest pain Is this a current diagnosis for this admission?: Yes (2) Morbid obesity with BMI of 40.0-44.9, adult Is this a current diagnosis for this admission?: Yes (3) Hypothyroidism (acquired) Is this a current diagnosis for this admission?: Yes (4) Tobacco dependence Is this a current diagnosis for this admission?: Yes - Additional Information Resuscitation Status: Full Code Home Medications: Amoxicillin/Potassium Clav [Augmentin 500-125 Tablet] 1 tab PO Q8 MDD FOR 7 DAYS 04/24/19 Lisinopril/Hydrochlorothiazide [Zestoretic 10-12.5 mg Tablet] 1 tab PO DAILY 04/24/19 Oxycodone HCl/Acetaminophen [Percocet 7.5-325 mg Tablet] 1 tab PO Q6HP PRN 04/24/19 Pantoprazole Sodium [Protonix [address] Tablet] 40 mg PO QAM 04/24/19 Tizanidine HCl [Zanaflex] 2 mg PO TID 04/24/19 Lipase/Protease/Amylase [Creon Dr 24,000 Units Capsule] 2 cap PO TID 04/25/19 Tobramycin Sulfate/Dexameth [Tobradex Oph Drops 2.5 ml] 2 drop AD TID 04/25/19 History of Present Illness History of Present Illness: FLORENCE GR is a 59 year old black female patient with past medical history of hypertension, morbid obesity, chronic pancreatitis, hypothyroidism, prediabetes and everyday smoker, presented with chief complaint of chest pain. Patient reported that she has been in her usual baseline state of up until yesterday when she started to have sudden onset right-sided chest pain radiating to her back. No aggravating or ameliorating factor identified. Patient denies any fever chills palpitation or diaphoresis. Her chest pain is reproducible by palpation. Her first-rate cardiac enzymes negative her EKG revealed new T wave inversion in lead III and 4. No urinary complaints, no nausea, no vomiting, abdominal pain or diarrhea. Hospital Course Hospital Course: FLORENCE GR is a 59 year old black female patient with past medical history of hypertension, morbid obesity, chronic pancreatitis, hypothyroidism, prediabetes and everyday smoker, presented with chief complaint of chest pain. Patient reported that she has been in her usual baseline state of up until yesterday when she started to have sudden onset right-sided chest pain radiating to her back. No aggravating or ameliorating factor identified. Patient denies any fever chills palpitation or diaphoresis. Her chest pain is reproducible by palpation. Her first-rate cardiac enzymes negative her EKG revealed new T wave inversion in lead III and 4. No urinary complaints, no nausea, no vomiting, abdominal pain or diarrhea. Patient remained chest pain-free throughout her stay. No new EKG changes. Her 3 sets of cardiac enzymes are negative. This morning patient undergone nuclear cardiac stress test and reported negative. Patient is going to be discharged in stable condition. Advised to have follow- up with her primary care physician. Physical Exam Vital Signs: Temp Pulse Resp BP Pulse Ox 98.2 F 59 L 20 135/51 H 98 04/27/19 15:03 04/27/19 15:03 04/27/19 15:03 04/27/19 15:03 04/27/19 15:03 Intake & Output 04/26/19 04/27/19 04/28/19 06:59 06:59 06:59 Intake Total 820 960 Balance 820 960 Weight 106.3 kg 106.2 kg General appearance: PRESENT: morbidly obese Results Laboratory Results: 04/24/19 14:34 04/24/19 16:10 04/24/19 04/24/19 04/24/19 14:34 16:10 18:00 Troponin I Cancelled < 0.012 < 0.012 04/24/19 04/25/19 23:56 06:18 Troponin I 0.014 < 0.012 Impressions: Chest X-Ray 04/24/19 13:38 IMPRESSION: HEART ENLARGED WITHOUT FAILURE. NO OTHER SIGNIFICANT RADIOGRAPHIC FINDING IN THE CHEST. Qualifiers - * PATIENT BEING DISCHARGED WITH ANY OF THE FOLLOWING DIAGNOSIS: No Acute Heart Failure - Is this a Heart Failure Patient?: No LVEF < 40%?: No- if no continue to question #3 3. Anticoagulant therapy for permanect/persistent/paraoxysmal Afib or Aflutter: N/A
[2019-04-27 17:35] VITALS: BP 157/44
--- NOTE | 2019-04-27 23:25 | DRAGON STRESS TEST REPORT ---
Intravenous Lexiscan Cardiolite stress test using single photon emmision computerized tomography. Date of procedure: 04/27/2019. Ordering Provider: Dr. Rodriguez. Patient's status: In Patient. Indication: Chest pain. Coronary risk factors: Age, diabetes mellitus, tobacco abuse disorder, and family history of coronary artery disease. Resting EKG: Sinus Rhythm. Inferolateral T inversion consistent with ischemia. Also T inversion in leads V3 and and V4 Stress EKG: No changes of ischemia. The patient had no chest pain or discomfort, and there were no arrhythmias seen. Reason for termination: Protocol. Conclusions: Normal EKG and hemodynamic response to IV Lexiscan. Nuclear data: At rest the patient was given 10.97 millicuries of technetium 99m sestamibi injected intravenously. As per protocol rest non gated SPECT images were obtained. Subsequently the patient was given intravenous Lexiscan at a dose of 0.4 mg in 5 mL intravenously, followed by flush with normal saline. Subsequently the stress dose of 30.5 millicuries of technetium 99m sestamibi was injected intravenously. As per protocol stress gated images were obtained. Nuclear interpretation: Review of images showed that all segments of the myocardium had normal perfusion at rest, and normal perfusion post stress with IV Lexiscan. All segments of the myocardium had normal motion, contraction, and thickening by gated study. T. I D. ratio was normal at 1.01. There is no transient ischemic dilatation of the left ventricle. Computer read rest, and stress left ventricular ejection fraction were 58 %, and T4 %, respectively. Conclusion: 1. There is no scintigraphic evidence of Lexiscan induced myocardial ischemia. 2. There is no scintigraphic evidence of myocardial infarction/scar. Recommendations: Aggressive risk factor modification, and treating the underlying co- morbidities. MTDD
== END 2019-04-27 18:10 | disposition home or self-care (01) ==
LOC: ER 12:36 → EH 17:49 → 5 19:40
PROVIDERS: ADMIT Internal Medicine; ATTEND Internal Medicine
DX: R07.89 Other chest pain (principal); E66.01 Morbid (severe) obesity due to excess calories; Z68.41 Body mass index [BMI] 40.0-44.9, adult; E03.9 Hypothyroidism, unspecified; H92.09 Otalgia, unspecified ear; M25.511 Pain in right shoulder; R06.02 Shortness of breath; R73.03 Prediabetes; I10 Essential (primary) hypertension; K86.1 Other chronic pancreatitis; M54.2 Cervicalgia; R11.0 Nausea; R61 Generalized hyperhidrosis; F17.210 Nicotine dependence, cigarettes, uncomplicated; K21.9 Gastro-esophageal reflux disease without esophagitis; Z79.899 Other long term (current) drug therapy; Z90.49 Acquired absence of other specified parts of digestive tract; Z88.6 Allergy status to analgesic agent; Z88.5 Allergy status to narcotic agent; Z88.8 Allergy status to other drugs, medicaments and biological substances; Z82.49 Family history of ischemic heart disease and other diseases of the circulatory system; Z98.818 Other dental procedure status; Z91.041 Radiographic dye allergy status
CPT/HCPCS: 93005; 99285; 96374; 96375; 36415 ×2; 82962 ×3; 84443; 85025; 80053; 84484 ×2; 83036; 93017; 71045; 78452; 93010; G0378 ×5; A9500; J2785; S0119 ×2; J3010; J1815; J1885; J1650 ×3; J3490 ×4; J2405; Q9969

== ENCOUNTER 2019-06-01 14:33 | Emergency (ER) | payer BC ==
--- NOTE | 2019-06-01 16:28 | ER Document Report ---
ED Medical Screen (RME) - General Chief Complaint: Abdominal Pain Stated Complaint: DIARRHEA,ABDOMINAL PAIN, NAUSEA Time Seen by Provider: 06/01/19 16:24 Primary Care Provider: SACHI HOWARD MD [Primary Care Provider] - Follow up as needed Mode of Arrival: Ambulatory Information source: Patient Notes: 59-year-old female presented to ED for complaint of upper abdominal pain. She has a history of diabetes type 2 pancreatitis ulcers reflux IBS sciatica and arthritis. She has had a hysterectomy gallbladder and biopsy of the breast and appendectomy. She is alert oriented respirations regular and unlabored she is complaining of epigastric and upper abdominal pain. She states she does continue to drink monthly and smokes half pack a day . I have greeted and performed a rapid initial assessment of this patient. A comprehensive ED assessment and evaluation of the patient, analysis of test results and completion of medical decision making process will be conducted by an additional ED providers. Dictation of this chart was performed using voice recognition software; therefore, there may be some unintended grammatical errors. TRAVEL OUTSIDE OF THE [place] IN LAST 30 DAYS: No - Related Data Allergies/Adverse Reactions: aspirin [Aspirin] Allergy (Verified 06/01/19 14:36) STOMACH PAIN ibuprofen [From Motrin] Allergy (Verified 06/01/19 14:36) STOMACH PAIN iodine [Iodine] Allergy (Verified 06/01/19 14:36) Hives morphine [Morphine] Allergy (Verified 06/01/19 14:36) Generalized Itching acetaminophen [From Percocet] Adverse Reaction (Verified 06/01/19 14:36) Hallucinations meloxicam [From Mobic] Adverse Reaction (Verified 06/01/19 14:36) STOMACH PAIN ivp dye Allergy (Uncoded 06/01/19 14:36) Hives Past Medical History - Past Medical History Cardiac Medical History: Reports: Hx Hypercholesterolemia Denies: Hx Coronary Artery Disease, Hx Heart Attack, Hx Hypertension Pulmonary Medical History: Reports: Hx Bronchitis Denies: Hx Asthma, Hx COPD, Hx Pneumonia Neurological Medical History: Denies: Hx Cerebrovascular Accident, Hx Seizures Endocrine Medical History: Reports: Hx Hypothyroidism Renal/ Medical History: Denies: Hx Peritoneal Dialysis GI Medical History: Reports: Hx Gastroesophageal Reflux Disease, Hx Pancreatitis - chronic Musculoskeltal Medical History: Denies Hx Arthritis Psychiatric Medical History: Denies: Hx Depression Past Surgical History: Reports: Hx Appendectomy, Hx Breast Surgery - biopsy x 3, Hx Cholecystectomy, Hx Hysterectomy - Immunizations Hx Diphtheria, Pertussis, Tetanus Vaccination: Yes History of Influenza Vaccine for 08/2017 - 01/2018 Season: Refused Physical Exam - Vital signs Vitals: Temp Pulse Resp BP Pulse Ox 97.9 F 75 25 H 140/70 H 97 06/01/19 15:13 06/01/19 15:13 06/01/19 15:13 06/01/19 15:13 06/01/19 15:13 Course - Vital Signs Vital signs: Temp Pulse Resp BP Pulse Ox 97.9 F 75 25 H 140/70 H 97 06/01/19 15:13 06/01/19 15:13 06/01/19 15:13 06/01/19 15:13 06/01/19 15:13 Doctor's Discharge - Discharge Referrals: SACHI HOWARD MD [Primary Care Provider] - Follow up as needed
[2019-06-01 17:32] LABS: APPEARANCE,URINE CLOUDY; BILIRUBIN,URINE NEGATIVE (NEGATIVE); COLOR,URINE YELLOW; GLUCOSE, URINE NEGATIVE (NEGATIVE); KETONES,URINE NEGATIVE (NEGATIVE); LEUKOCYTE ESTERASE,URINE NEGATIVE (NEGATIVE); NITRITE,URINE NEGATIVE (NEGATIVE); PROTEIN,URINE 30 mg/dL (NEGATIVE); UROBILINOGEN,URINE NEGATIVE mg/dL (<2.0)
[2019-06-01] MEDS: NORMAL SALINE 1000 ML 1,000 ML IV PRN ×2 (18:27→22:30)
[2019-06-01 19:51] LABS: ALANINE AMINOTRANSFERASE 22 U/L (9-52); ALBUMIN 4.3 g/dL (3.5-5.0); ALCOHOL < 10 mg/dL (NONE DETECTED); ALKALINE PHOSPHATASE 119 U/L (38-126); ANION GAP 10 (5-19); ASPARTATE AMINO TRANSFERASE 33 U/L (14-36); BILIRUBIN,DIRECT 0.4 mg/dL (0.0-0.4); BILIRUBIN,TOTAL 0.5 mg/dL (0.2-1.3); BLOOD UREA NITROGEN 21 mg/dL (7-20); CALCIUM 10.5 mg/dL (8.4-10.2); CARBON DIOXIDE 20 mmol/L (22-30); CHLORIDE 111 mmol/L (98-107); CREATINE KINASE 65 U/L (30-135); GLUCOSE 107 mg/dL (75-110); LIPASE 226.2 U/L (23-300); POTASSIUM 5.6 mmol/L (3.6-5.0); SODIUM 140.9 mmol/L (137-145); TOTAL PROTEIN 7.8 g/dL (6.3-8.2)
[2019-06-01 20:02] LABS: CREATINE KINASE MB 0.65 ng/mL (<4.55); TROPONIN I < 0.012 ng/mL
[2019-06-01] MEDS ORDERED: MAG HYDROX/AL HYDROX/SIMETH SUSP 30 ML UDCUP PO ONE (23:08)
[2019-06-01] MEDS ORDERED: METOCLOPRAMIDE HCL ORAL SOLN 10 MG/10 ML UDCUP PO ONE (23:08)
[2019-06-01] MEDS ORDERED: LIDOCAINE 2% VISCOUS SOLN 20 ML UDCUP PO ONE (23:08)
[2019-06-01] MEDS ORDERED: FENTANYL CITRATE INJ/PF 100 MCG/2 ML AMPUL IV ONE (23:09)
--- NOTE | 2019-06-01 23:14 | ER Document Report ---
ED General - General Chief Complaint: Abdominal Pain Stated Complaint: DIARRHEA,ABDOMINAL PAIN, NAUSEA Time Seen by Provider: 06/01/19 16:24 Primary Care Provider: SACHI HOWARD MD [Primary Care Provider] - Follow up as needed Mode of Arrival: Ambulatory Notes: 59-year-old female with history of [id number] diabetes mellitus, pancreatitis, peptic ulcer disease, GERD, IBS, sciatica, arthritis presents to the emergency department with chief complaint of upper abdominal pain that got acutely worse last night. She says that the pain is stabbing and in the subxiphoid area. She has associated nausea with no vomiting, denies fevers or chills, denies recent illness, denies dysphagia, denies acute shortness of breath or chest pain, denies abdominal cramping, denies urinary symptoms, denies any abnormal vaginal discharge. No other complaints. Patient is 1/2 pack/day smoker and an occasional drinker. TRAVEL OUTSIDE OF THE [place] IN LAST 30 DAYS: No - Related Data Allergies/Adverse Reactions: aspirin [Aspirin] Allergy (Verified 06/01/19 14:36) STOMACH PAIN ibuprofen [From Motrin] Allergy (Verified 06/01/19 14:36) STOMACH PAIN iodine [Iodine] Allergy (Verified 06/01/19 14:36) Hives morphine [Morphine] Allergy (Verified 06/01/19 14:36) Generalized Itching acetaminophen [From Percocet] Adverse Reaction (Verified 06/01/19 14:36) Hallucinations meloxicam [From Mobic] Adverse Reaction (Verified 06/01/19 14:36) STOMACH PAIN ivp dye Allergy (Uncoded 06/01/19 14:36) Hives Past Medical History - General Information source: Patient - Social History Smoking Status: Current Every Day Smoker Frequency of alcohol use: Occasional Drug Abuse: None Family History: Reviewed & Not Pertinent, CAD Patient has suicidal ideation: No Patient has homicidal ideation: No - Past Medical History Cardiac Medical History: Reports: Hx Hypercholesterolemia Denies: Hx Coronary Artery Disease, Hx Heart Attack, Hx Hypertension Pulmonary Medical History: Reports: Hx Bronchitis Denies: Hx Asthma, Hx COPD, Hx Pneumonia Neurological Medical History: Denies: Hx Cerebrovascular Accident, Hx Seizures Endocrine Medical History: Reports: Hx Diabetes Mellitus Type 2, Hx Hyp othyroidism Renal/ Medical History: Denies: Hx Peritoneal Dialysis GI Medical History: Reports: Hx Gastroesophageal Reflux Disease, Hx Pancreatitis - chronic Musculoskeletal Medical History: Denies Hx Arthritis Psychiatric Medical History: Denies: Hx Depression Past Surgical History: Reports: Hx Appendectomy, Hx Breast Surgery - biopsy x 3, Hx Cholecystectomy, Hx Hysterectomy - Immunizations Hx Diphtheria, Pertussis, Tetanus Vaccination: Yes Review of Systems - Review of Systems Constitutional: See HPI EENT: No symptoms reported Cardiovascular: See HPI Respiratory: See HPI Gastrointestinal: See HPI Genitourinary: See HPI Female Genitourinary: See HPI Musculoskeletal: No symptoms reported Skin: No symptoms reported Hematologic/Lymphatic: No symptoms reported Neurological/Psychological: No symptoms reported Physical Exam - Vital signs Vitals: Temp Pulse Resp BP Pulse Ox 97.9 F 75 25 H 140/70 H 97 06/01/19 15:13 06/01/19 15:13 06/01/19 15:13 06/01/19 15:13 06/01/19 15:13 - Notes Notes: PHYSICAL EXAMINATION: Reviewed vital signs and charting by RN GENERAL: Alert, interacts well. No acute distress. HEAD: Normocephalic, atraumatic. EYES: Pupils equal and round. Extraocular movements intact. ENT: Oral mucosa moist, tongue midline. NECK: Full range of motion. Trachea midline. LUNGS: Clear to auscultation bilaterally, no wheezes, rales, or rhonchi. No respiratory distress. HEART: Regular rate and rhythm. No murmur ABDOMEN: soft, left lower quadrant tenderness to palpation, epigastric tenderness to palpation. No distention. Bowel sounds present EXTREMITIES: Moves all 4 extremities spontaneously. No edema, No cyanosis. PSYCH: Normal affect, normal mood. SKIN: Warm, dry, normal turgor. No rashes or lesions noted. Course - Re-evaluation Re-evalutation: 06/01/19 23:12 Generally well-appearing, CBC still pending. Lipase 226 and potassium 5.6. Labs otherwise unremarkable, urinalysis was a contaminated sample also will send for culture. I suspect patient's discomfort due to possible gastritis. Patient has a history of appendectomy, cholecystectomy, hysterectomy. Patient is passing flatus and has had periods of constipation and diarrhea consistent with her IBS. I do not suspect a small bowel obstruction at this time. I will give her a GI cocktail and a small dose of fentanyl for pain control pending the rest of the work-up. 06/02/19 00:27 Patient responded well to GI cocktail and small dose of fentanyl. Patient recently started metformin which could also be contributing to her GI upset. Work-up overall unremarkable and patient historically has had normal potassium. I suspect patient is mildly dehydrated. I explained to patient that because of her surgical history is and her symptomatology is most likely due to gastritis. She does take Protonix every morning correctly. At this time she is stable for discharge. - Vital Signs Vital signs: Temp Pulse Resp BP Pulse Ox 98.1 F 75 20 148/55 H 97 06/01/19 22:47 06/01/19 15:13 06/01/19 22:47 06/01/19 22:47 06/01/19 22:47 - Laboratory Result Diagrams: 06/01/19 19:05 Laboratory results interpreted by me: 06/01/19 06/01/19 17:12 19:05 Potassium 5.6 H Chloride 111 H Carbon Dioxide 20 L BUN 21 H Calcium 10.5 H Urine Protein 30 H Discharge - Discharge Clinical Impression: Abdominal pain Qualifiers: Abdominal location: epigastric Qualified Code(s): R10.13 - Epigastric pain Gastritis Qualifiers: Gastritis type: unspecified gastritis Chronicity: acute Gastritis bleeding: without bleeding Qualified Code(s): K29.00 - Acute gastritis without bleeding Condition: Good Disposition: HOME, SELF-CARE Additional Instructions: Your symptoms appear to be most consistent with stomach or upper intestinal irritation. Please continue taking your Protonix and morning 30 to 60 minutes prior to eating or drinking anything. You may also take medicine such Tums to assist with your pain. Please return to emergency department immediately if you have worsening of your pain, shortness of breath, vomiting, become unable to exert yourself due to pain or difficulty breathing, you pass out, or have any pain that radiates into your arms, jaw, or back. Please also return if you have any additional symptoms that are concerning to you. As we have discussed, the most important thing is lifestyle changes. You need to avoid smoking, sodas, tea, coffee, alcohol, spicy foods, and acidic foods such as citrus fruits, tomato based products, berries, and most fruit juices. Referrals: SACHI HOWARD MD [Primary Care Provider] - Follow up as needed
[2019-06-02] MEDS ORDERED: HYDROCODONE/ACETAMINOPHEN 5-325 MG (6 TAB/ER DISP) PO PRN (00:31)
[2019-06-02 01:40] VITALS: BP 128/40
== END 2019-06-02 01:54 | disposition home or self-care (01) ==
LOC: ER 14:33
DX: K29.00 Acute gastritis without bleeding (principal); R10.13 Epigastric pain; F17.200 Nicotine dependence, unspecified, uncomplicated; E78.00 Pure hypercholesterolemia, unspecified; E11.9 Type 2 diabetes mellitus without complications; Z90.49 Acquired absence of other specified parts of digestive tract; Z88.6 Allergy status to analgesic agent
CPT/HCPCS: 99284; 96361; 96374; 36415; 82553; 80307; 82550; 83690; 80053; 81001; 84484; J3010; J3490; J7030

== ENCOUNTER 2019-06-06 17:08 | Inpatient (IN) | payer BC ==
--- NOTE | 2019-06-06 18:12 | EKG REPORT ---
SEVERITY:- ABNORMAL ECG - SINUS RHYTHM LVH WITH SECONDARY REPOLARIZATION ABNORMALITY : Confirmed by: Sheldon Huff MD 06-Jun-2019 18:12:04
--- NOTE | 2019-06-06 18:36 | RADIOLOGY REPORT (SQ) ---
EXAM DESCRIPTION: CHEST SINGLE VIEW COMPLETED DATE/TIME: 06/06/2019 6:25 pm REASON FOR STUDY: chest pain COMPARISON: 04/24/2019 EXAM PARAMETERS: NUMBER OF VIEWS: One view. TECHNIQUE: Single frontal radiographic view of the chest acquired. RADIATION DOSE: NA LIMITATIONS: None. FINDINGS: LUNGS AND PLEURA: No opacities, masses or pneumothorax. No pleural effusion. MEDIASTINUM AND HILAR STRUCTURES: No masses. Contour normal. HEART AND VASCULAR STRUCTURES: Cardiomegaly. BONES: No acute findings. HARDWARE: None in the chest. OTHER: No other significant finding. IMPRESSION: Cardiomegaly without acute abnormality of the lungs. TECHNICAL DOCUMENTATION: JOB ID: [id number] [employer]- All Rights Reserved Reading location - IP/workstation name: AD
[2019-06-06 19:05] LABS: ABSOLUTE EOSINOPHILS # (AUTO) 0.2 10^3/uL (0.0-0.6); ABSOLUTE LYMPHOCYTES (AUTO) 3.5 10^3/uL (0.5-4.7); ABSOLUTE MONOCYTES (AUTO) 0.5 10^3/uL (0.1-1.4); ABSOLUTE NEUT (AUTO) 2.3 10^3/uL (1.7-8.2); BASOPHILS % (AUTO) 0.6 % (0-2); EOSINOPHILS % (AUTO) 2.8 % (0-6); HEMATOCRIT 42.3 % (36.0-47.0); HEMOGLOBIN 13.7 g/dL (12.0-15.5); LYMPHOCYTES % (AUTO) 53.5 % (13-45); MEAN CORPUSCULAR HEMOGLOBIN 27.3 pg (27.0-33.4); MEAN CORPUSCULAR HGB CONC 32.4 g/dL (32.0-36.0); MEAN CORPUSCULAR VOLUME 84 fl (80-97); MONOCYTES % (AUTO) 7.7 % (3-13); PLATELET COUNT 320 10^3/uL (150-450); RED BLOOD COUNT 5.02 10^6/uL (3.72-5.28); RED CELL DISTRIBUTION WIDTH 14.5 % (11.5-14.0); SEGMENTED NEUTROPHILS % (AUTO) 35.4 % (42-78); TOTAL CELLS COUNTED % (AUTO) 100 %; WHITE BLOOD COUNT 6.6 10^3/uL (4.0-10.5)
[2019-06-06 19:17] LABS: ALANINE AMINOTRANSFERASE 21 U/L (9-52); ALBUMIN 4.2 g/dL (3.5-5.0); ALKALINE PHOSPHATASE 108 U/L (38-126); ANION GAP 6 (5-19); ASPARTATE AMINO TRANSFERASE 25 U/L (14-36); BILIRUBIN,DIRECT 0.3 mg/dL (0.0-0.4); BILIRUBIN,TOTAL 0.3 mg/dL (0.2-1.3); BLOOD UREA NITROGEN 20 mg/dL (7-20); CALCIUM 10.5 mg/dL (8.4-10.2); CARBON DIOXIDE 28 mmol/L (22-30); CHLORIDE 107 mmol/L (98-107); CREATINE KINASE 70 U/L (30-135); GLUCOSE 103 mg/dL (75-110); POTASSIUM 5.1 mmol/L (3.6-5.0); TOTAL PROTEIN 7.5 g/dL (6.3-8.2)
[2019-06-06] MEDS ORDERED: NORMAL SALINE 1000 ML 1,000 ML IV ONE (19:31)
[2019-06-06] MEDS ORDERED: FAMOTIDINE INJ/PF 20 MG/2 ML SDV IV ONE (19:32)
[2019-06-06] MEDS ORDERED: FENTANYL CITRATE INJ/PF 100 MCG/2 ML AMPUL IV ONE (19:32)
[2019-06-06] MEDS ORDERED: ONDANSETRON HCL INJ/PF 4 MG/2 ML SDV IV ONE (19:32)
[2019-06-06] MEDS ORDERED: DIPHENHYDRAMINE HCL 50 MG/ML VIAL IV ONE (19:32)
[2019-06-06] MEDS ORDERED: METHYLPREDNISOLONE INJ 125 MG/2 ML SDV IV ONE (19:32)
[2019-06-06 19:34] LABS: CREATINE KINASE MB 0.92 ng/mL (<4.55); TROPONIN I < 0.012 ng/mL
--- NOTE | 2019-06-06 19:38 | ER Document Report ---
ED General - General Chief Complaint: Chest Pain Stated Complaint: CHEST PAIN Time Seen by Provider: 06/06/19 19:03 Primary Care Provider: SACHI HOWARD MD [Primary Care Provider] - Follow up as needed TRAVEL OUTSIDE OF THE [place] IN LAST 30 DAYS: No - HPI Notes: Patient is a 59-year-old female with a history of chronic pancreatitis who comes to the emergency department complaining of epigastric and chest pain. She states she was seen here Saturday, her pain is persisted. She was seen by her primary care doctor. He increased her Protonix, gave her a prescription for B entyl. She states that nothing seems to be helping. She is had nausea but no emesis. She is had diarrhea. She describes the pain as "it just feels like my pancreas." She also complains of a left-sided chest pain with mild associated shortness of breath. No fevers. States she is taking her pancreatic enzyme replacements as prescribed. 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 - Related Data Allergies/Adverse Reactions: aspirin [Aspirin] Allergy (Verified 06/06/19 17:09) STOMACH PAIN ibuprofen [From Motrin] Allergy (Verified 06/06/19 17:09) STOMACH PAIN iodine [Iodine] Allergy (Verified 06/06/19 17:09) Hives morphine [Morphine] Allergy (Verified 06/06/19 17:09) Generalized Itching meloxicam [From Mobic] Adverse Reaction (Verified 06/06/19 17:09) STOMACH PAIN ivp dye Allergy (Uncoded 06/06/19 17:09) Hives Past Medical History - General Information source: Patient - Social History Smoking Status: Current Every Day Smoker Frequency of alcohol use: Rare Drug Abuse: None Family History: Reviewed & Not Pertinent, CAD - Past Medical History Cardiac Medical History: Reports: Hx Hypercholesterolemia Denies: Hx Coronary Artery Disease, Hx Heart Attack, Hx Hypertension Pulmonary Medical History: Reports: Hx Bronchitis Denies: Hx Asthma, Hx COPD, Hx Pneumonia Neurological Medical History: Denies: Hx Cerebrovascular Accident, Hx Seizures Endocrine Medical History: Reports: Hx Diabetes Mellitus Type 2, Hx Hypothyroidism Renal/ Medical History: Denies: Hx Peritoneal Dialysis GI Medical History: Reports: Hx Gastroesophageal Reflux Disease, Hx Pancreatitis - chronic Musculoskeletal Medical History: Denies Hx Arthritis Psychiatric Medical History: Denies: Hx Depression Past Surgical History: Reports: Hx Appendectomy, Hx Breast Surgery - biopsy x 3, Hx Cholecystectomy, Hx Hysterectomy - Immunizations Hx Diphtheria, Pertussis, Tetanus Vaccination: Yes Review of Systems - Review of Systems Constitutional: No symptoms reported EENT: No symptoms reported Cardiovascular: No symptoms reported Respiratory: No symptoms reported Gastrointestinal: See HPI Genitourinary: No symptoms reported Female Genitourinary: No symptoms reported Musculoskeletal: No symptoms reported Skin: No symptoms reported Neurological/Psychological: No symptoms reported Physical Exam - Vital signs Vitals: Temp Pulse Resp BP Pulse Ox 97.9 F 82 18 146/55 H 98 06/06/19 17:22 06/06/19 17:22 06/06/19 17:22 06/06/19 17:22 06/06/19 17:22 - Notes Notes: Vital signs reviewed, please refer to chart. Head is normocephalic, atraumatic. Pupils equal round, reactive to light. Neck is supple without meningismus. Heart is regular rate and rhythm. Lungs are clear to auscultation bilaterally. Abdomen is soft, moderate epigastric tenderness without rebound or guarding, normoactive bowel sounds throughout. Extremities without cyanosis, clubbing. Posterior calves are nontender. Peripheral pulses are equal. Skin is warm and dry. Patient is awake, alert, neurological exam is nonfocal. Course - Re-evaluation Re-evalutation: 06/06/19 19:37 Presents emergency department for evaluation. Laboratory investigations as ordered through triage. I did review this patient's recent history. She had a negative stress test on April 27 of this year. I certainly do not have a high suspicion for a cardiac etiology of this patient's pain. Her lipase was only mildly elevated in the 500s. Patient does have a listed allergy to IV dye, but she states she has tolerated this with premedication. Patient was administered fentanyl, Zofran, Solu-Medrol, Pepcid, Benadryl. Also added blood alcohol. We will send patient for CT scan of the abdomen pelvis with IV contrast for further evaluation. 06/07/19 00:38 Patient continues to have pain. She is given IV fluids. She has not had any emesis. Her CT does confirm findings consistent with pancreatitis. Will contact medicine for admission. 06/07/19 00:[address] Osorio, he will admit the patient for further care. - Vital Signs Vital signs: Temp Pulse Resp BP Pulse Ox 97.9 F 82 21 H 103/72 98 06/06/19 17:22 06/06/19 17:22 06/06/19 23:01 06/06/19 23:01 06/06/19 23:01 - Laboratory Result Diagrams: 06/06/19 18:45 06/06/19 18:45 Laboratory results interpreted by me: 06/06/19 06/06/19 06/06/19 18:45 18:45 18:45 RDW 14.5 H Seg Neutrophils % 35.4 L Lymphocytes % 53.5 H Potassium 5.1 H Est GFR ( Amer) 57 L Est GFR (Non-Af Amer) 47 L Calcium 10.5 H Lipase 526.8 H - Diagnostic Test Radiology reviewed: Reports reviewed Radiology results interpreted by me: 06/06/19 19:38 Chest X-Ray 06/06/19 18:15 IMPRESSION: Cardiomegaly without acute abnormality of the lungs. - EKG Interpretation by Me Additional EKG results interpreted by me: 06/06/19 19:38 Sinus mechanism with a rate of 68 bpm. Normal axis and intervals. Lateral T wave inversions consistent with LVH with strain. When compared to prior study this is improved. Discharge - Discharge Clinical Impression: Pancreatitis, recurrent Condition: Stable Disposition: ADMITTED INPATIENT Admitting Provider: Devon (Hospitalist) Unit Admitted: Telemetry Referrals: SACHI HOWARD MD [Primary Care Provider] - Follow up as needed
--- NOTE | 2019-06-06 22:21 | RADIOLOGY REPORT (SQ) ---
EXAM DESCRIPTION: CT ABDOMEN PELVIS WITH IV CONTRAST COMPLETED DATE/TME: 06/06/2019 19:32 CLINICAL HISTORY: 59 years, Female, eval for pancreatitis COMPARISON: None. TECHNIQUE: CT of the abdomen and pelvis was performed following intravenous administration of contrast. Oral contrast was not administered. Multiplanar reformatted images were provided. This exam was performed according to our departmental dose optimization program which includes use of automated exposure control, adjustment of the mA and/or kV according to patient size and/or use of iterative reconstruction technique. Images stored on PACS. All CT scanners at this facility use dose modulation, iterative reconstruction, and/or weight based dosing when appropriate to reduce radiation dose to as low as reasonably achievable (ALARA). [facility]: Dose Right [facility]: CareDose [facility]: Dose Right [facility]: Teradose 4D [facility]: Pet Airways LIMITATIONS: None. FINDINGS: Chest: Evaluation through the lung bases reveals no focal opacity, pleural effusion or pneumothorax. Heart size is within normal limits. No pericardial effusion. Abdomen and pelvis: Slightly edematous appearance of the pancreas with peripancreatic stranding compatible with acute pancreatitis. Intrahepatic minimal biliary dilation, a finding which can be seen following cholecystectomy. Surgical clips at the level of the gallbladder fossa status post cholecystectomy. The liver, spleen, bilateral kidneys and bilateral adrenal glands are within normal limits. The vessels are patent and normal in caliber. No abdominopelvic lymph nodes are noted to be pathologically enlarged by CT measurement criteria. The bowel is within normal limits without abnormal bowel wall thickness or bowel dilation. No free air. No free abdominopelvic fluid collections. The appendix is not identified. The osseous structures are within normal limits. Multiple small fat-containing ventral abdominal hernia. IMPRESSION: 1. Slightly edematous appearance of the pancreas with peripancreatic stranding compatible with acute pancreatitis TECHNICAL DOCUMENTATION: Quality ID # 436: Final reports with documentation of one or more dose reduction techniques (e.g., Automated exposure control, adjustment of the mA and/or kV according to patient size, use of iterative reconstruction technique) copyright 2011 [employer]- All Rights Reserved
[2019-06-07] MEDS ORDERED: NORMAL SALINE 1000 ML 1,000 ML IV ONE (00:34)
[2019-06-07] MEDS ORDERED: HYDRALAZINE HCL INJ/PF 20 MG/1 ML SDV IV PRN (00:51)
[2019-06-07] MEDS ORDERED: MAGNESIUM HYDROXIDE SUSP 30 ML UDCUP PO PRN (01:01)
[2019-06-07] MEDS ORDERED: MAG HYDROX/AL HYDROX/SIMETH SUSP 30 ML UDCUP PO PRN (01:01)
[2019-06-07] MEDS ORDERED: IPRATROPIUM/ALBUTEROL 0.5-2.5 MG/3 ML AMPUL NEB PRN (01:01)
[2019-06-07] MEDS ORDERED: NORMAL SALINE 1000 ML 1,000 ML IV PRN (01:15)
[2019-06-07] MEDS ORDERED: LACTULOSE SYRUP 20 GM/30 ML UDCUP PO ONE (01:30)
[2019-06-07] MEDS: KETOROLAC TROMETHAMINE INJ/PF 30 MG/1 ML SDV IV PRN ×3 (01:53→19:51)
--- NOTE | 2019-06-07 03:35 | PDOC H&P ---
History of Present Illness Admission Date/PCP: 06/07/19 00:50 SACHI HOWARD MD Patient complains of: Epigastric pain and nausea History of Present Illness: FLORENCE GR is a 59 year old female with partial past medical history of diabetes, hypertension, morbid obesity, hypothyroidism, tobacco dependence and chronic pancreatitis. She presents with 48 hours of epigastric pain nausea and vomiting with p.o. intake prompting evaluation emergency room where she is found to have elevated lipase and a CT showing stranding and edema about the pancreas. She receives symptomatic management and referred to the hospitalist for admission. She admits good glycemic control, denies alcohol, recent change in medication regiment, recent illness or change in diet. Past Medical History Cardiac Medical History: Reports: Hyperlipidema Denies: Coronary Artery Disease, Myocardial Infarction, Hypertension Pulmonary Medical History: Reports: Bronchitis Denies: Asthma, Chronic Obstructive Pulmonary Disease (COPD), Pneumonia Neurological Medical History: Denies: Seizures Endocrine Medical History: Reports: Diabetes Mellitus Type 2, Hypothyroidism GI Medical History: Reports: Gastroesophageal Reflux Disease, Other - Chronic pancreatitis Musculoskeltal Medical History: Denies: Arthritis Psychiatric Medical History: Denies: Depression Hematology: Denies: Anemia Past Surgical History Past Surgical History: Reports: Appendectomy, Cholecystectomy, Hysterectomy Social History Information Source: Patient, [facility] Records Smoking Status: Current Every Day Smoker Frequency of Alcohol Use: None Hx Recreational Drug Use: No Drugs: None Hx Prescription Drug Abuse: No - Advance Directive Resuscitation Status: Full Code Family History Family History: Reviewed & Not Pertinent, CAD Parental Family History Reviewed: Yes Children Family History Reviewed: Yes Sibling(s) Family History Reviewed.: Yes Medication/Allergy Home Medications: Dicyclomine HCl [Bentyl 10 mg Capsule] 1 cap PO TID 06/07/19 Lipase/Protease/Amylase [Creon Dr 24,000 Units Capsule] 1 cap PO TID 06/07/19 Pantoprazole Sodium [Protonix] 40 mg PO BID 06/07/19 Allergies/Adverse Reactions: aspirin [Aspirin] Allergy (Verified 06/06/19 17:09) STOMACH PAIN ibuprofen [From Motrin] Allergy (Verified 06/06/19 17:09) STOMACH PAIN iodine [Iodine] Allergy (Verified 06/06/19 17:09) Hives morphine [Morphine] Allergy (Verified 06/06/19 17:09) Generalized Itching meloxicam [From Mobic] Adverse Reaction (Verified 06/06/19 17:09) STOMACH PAIN ivp dye Allergy (Uncoded 06/06/19 17:09) Hives Review of Systems Constitutional: ABSENT: chills, fever(s), headache(s), weight gain, weight loss Eyes: ABSENT: visual disturbances Ears: ABSENT: hearing changes Cardiovascular: ABSENT: chest pain, dyspnea on exertion, edema, orthropnea, pal pitations Respiratory: ABSENT: cough, hemoptysis Gastrointestinal: ABSENT: abdominal pain, constipation, diarrhea, hematemesis, hematochezia, nausea, vomiting Genitourinary: ABSENT: dysuria, hematuria Musculoskeletal: ABSENT: joint swelling Integumentary: ABSENT: rash, wounds Neurological: ABSENT: abnormal gait, abnormal speech, confusion, dizziness, focal weakness, syncope Psychiatric: ABSENT: anxiety, depression, homidical ideation, suicidal ideation Endocrine: ABSENT: cold intolerance, heat intolerance, polydipsia, polyuria Hematologic/Lymphatic: ABSENT: easy bleeding, easy bruising Physical Exam Vital Signs: Temp Pulse Resp BP Pulse Ox 98.2 F 58 L 16 142/41 H 96 06/07/19 02:46 06/07/19 02:46 06/07/19 02:46 06/07/19 02:46 06/07/19 02:46 Intake & Output 06/05/19 06/06/19 06/07/19 11:59 11:59 11:59 Intake Total 1000 Balance 1000 Weight 99.2 kg General appearance: PRESENT: cooperative, mild distress, well-developed, well-nourished Head exam: PRESENT: atraumatic, normocephalic Eye exam: PRESENT: conjunctiva pink, EOMI, PERRLA. ABSENT: scleral icterus Ear exam: PRESENT: normal external ear exam Mouth exam: PRESENT: moist, tongue midline Neck exam: ABSENT: carotid bruit, JVD, lymphadenopathy, thyromegaly Respiratory exam: PRESENT: clear to auscultation martín. ABSENT: rales, rhonchi, wheezes Cardiovascular exam: PRESENT: RRR. ABSENT: diastolic murmur, rubs, systolic murmur Pulses: PRESENT: normal dorsalis pedis pul Vascular exam: PRESENT: normal capillary refill GI/Abdominal exam: PRESENT: hyperactive bowel sounds, normal bowel sounds, soft, tenderness. ABSENT: distended, guarding, mass, organolmegaly, rebound Rectal exam: PRESENT: deferred Extremities exam: PRESENT: full ROM. ABSENT: calf tenderness, clubbing, pedal edema Neurological exam: PRESENT: alert, awake, oriented to person, oriented to place, oriented to time, oriented to situation, CN II-XII grossly intact. ABSENT: paras r sensory deficit Psychiatric exam: PRESENT: appropriate affect, normal mood. ABSENT: homicidal ideation, suicidal ideation Skin exam: PRESENT: dry, intact, warm. ABSENT: cyanosis, rash Results Laboratory Results: 06/06/19 18:45 06/06/19 18:45 06/06/19 06/06/19 06/06/19 18:45 18:45 18:45 WBC 6.6 RBC 5.02 Hgb 13.7 Hct 42.3 MCV 84 MCH 27.3 MCHC 32.4 RDW 14.5 H Plt Count 320 Seg Neutrophils % 35.4 L Lymphocytes % 53.5 H Monocytes % 7.7 Eosinophils % 2.8 Basophils % 0.6 Absolute Neutrophils 2.3 Absolute Lymphocytes 3.5 Absolute Monocytes 0.5 Absolute Eosinophils 0.2 Absolute Basophils 0.0 Sodium 141.3 Potassium 5.1 H Chloride 107 Carbon Dioxide 28 Anion Gap 6 BUN 20 Creatinine 1.17 Est GFR ( Amer) 57 L Est GFR (Non-Af Amer) 47 L Glucose 103 Calcium 10.5 H Total Bilirubin 0.3 AST 25 ALT 21 Alkaline Phosphatase 108 Total Protein 7.5 Albumin 4.2 Lipase 526.8 H 06/06/19 06/06/19 06/07/19 18:45 18:45 01:28 Creatine Kinase 70 CK-MB (CK-2) 0.92 Troponin I < 0.012 < 0.012 06/07/19 01:28 Creatine Kinase 63 CK-MB (CK-2) Troponin I Impressions: Chest X-Ray 06/06/19 18:15 IMPRESSION: Cardiomegaly without acute abnormality of the lungs. Abdomen/Pelvis CT 06/06/19 19:32 IMPRESSION: 1. Slightly edematous appearance of the pancreas with peripancreatic stranding compatible with acute pancreatitis TECHNICAL DOCUMENTATION: Quality ID # 436: Final reports with documentation of one or more dose reduction techniques (e.g., Automated exposure control, adjustment of the mA and/or kV according to patient size, use of iterative reconstruction technique) copyright 2011 [employer]- All Rights Reserved Assessment and Plan - Diagnosis (1) Pancreatitis, recurrent Is this a current diagnosis for this admission?: Yes Plan: Idiopathic, status post cholecystectomy, denies alcohol, telemetry admission, symptomatic management, n.p.o., follow-up lipid profile, trial clear liquid p.o. diet when tolerant of pain without narcotics. Advance as tolerated (2) Abdominal pain Is this a current diagnosis for this admission?: Yes Plan: Secondary to #1, n.p.o. with symptom medic management with fentanyl and IV Toradol (3) Diabetes Qualifiers: Is this a current diagnosis for this admission?: Yes Plan: Humalog sliding scale while n.p.o. (4) Tobacco dependence Is this a current diagnosis for this admission?: Yes Plan: Patient received tobacco cessation counseling and offered nicotine replacement options - Time Time Spent with patient: 15-24 minutes - Inpatient Certification Medical Necessity: Need Close Monitoring Due to Risk of Patient Decompensation
[2019-06-07] MEDS ORDERED: NICOTINE 7 MG/24 HR PATCH.TD24 TD ONE (04:00)
[2019-06-07] MEDS: HEPARIN SOD (PORCINE) 5,000 UNIT/ML 1 ML VIAL SUBCUT SCH ×3 (07:01→23:39)
[2019-06-07] MEDS: PANTOPRAZOLE SODIUM 40 MG TABLET.DR PO SCH ×2 (09:12→17:51)
[2019-06-07] MEDS ORDERED: ONDANSETRON HCL INJ/PF 4 MG/2 ML SDV IV PRN (09:21)
[2019-06-07] MEDS ORDERED: (PENDING PHARMACY ID) (Lipase/Protease/Amylase [Creon Dr 24,000 Units Capsule] 1 CAP) PO SCH (10:00)
[2019-06-07] MEDS: FENTANYL CITRATE INJ/PF 100 MCG/2 ML AMPUL IV PRN ×2 (13:43→20:24)
[2019-06-07] MEDS: DICYCLOMINE HCL 10 MG CAPSULE PO SCH ×3 (13:44→23:39)
--- NOTE | 2019-06-07 16:36 | Progress Note ---
Provider Note Provider Note: FLORENCE GR is a 59 year old female with partial past medical history of diabetes, hypertension, morbid obesity, hypothyroidism, tobacco dependence and chronic pancreatitis who was admitted early this morning by the core microarchitect for pancreatitis. Overnight events, vital signs, laboratory results, imaging, and orders reviewed. Agree with the plan of care as established by the previous provider. Patient remains in n.p.o. status. Providing IV fluids. Antiemetics and analgesics as needed for symptom control. Continue daily PPI. IV hydralazine as needed for blood pressure control. Nicotine replacement therapies.
[2019-06-07] MEDS: NORMAL SALINE 1000 ML 1,000 ML IV PRN (20:27)
[2019-06-08] MEDS: FENTANYL CITRATE INJ/PF 100 MCG/2 ML AMPUL IV PRN ×6 (01:35→17:55)
[2019-06-08] MEDS: PROMETHAZINE HCL INJ 25 MG/1 ML VIAL IV PRN ×3 (04:39→17:55)
[2019-06-08] MEDS: NORMAL SALINE 1000 ML 1,000 ML IV PRN ×2 (04:41→14:03)
[2019-06-08 05:15] LABS: ABSOLUTE BASOPHILS # (AUTO) 0.1 10^3/uL (0.0-0.2); ABSOLUTE MONOCYTES (AUTO) 0.4 10^3/uL (0.1-1.4); ABSOLUTE NEUT (AUTO) 4.5 10^3/uL (1.7-8.2); BASOPHILS % (AUTO) 0.7 % (0-2); EOSINOPHILS % (AUTO) 0.2 % (0-6); HEMATOCRIT 36.6 % (36.0-47.0); HEMOGLOBIN 11.9 g/dL (12.0-15.5); LYMPHOCYTES % (AUTO) 44.1 % (13-45); MEAN CORPUSCULAR HEMOGLOBIN 27.2 pg (27.0-33.4); MEAN CORPUSCULAR HGB CONC 32.6 g/dL (32.0-36.0); MEAN CORPUSCULAR VOLUME 84 fl (80-97); MONOCYTES % (AUTO) 4.8 % (3-13); PLATELET COUNT 248 10^3/uL (150-450); RED BLOOD COUNT 4.37 10^6/uL (3.72-5.28); RED CELL DISTRIBUTION WIDTH 14.2 % (11.5-14.0); SEGMENTED NEUTROPHILS % (AUTO) 50.2 % (42-78); TOTAL CELLS COUNTED % (AUTO) 100 %
[2019-06-08 05:33] LABS: TRIGLYCERIDES 135 mg/dL (<150)
[2019-06-08 05:36] LABS: ANION GAP 5 (5-19); BLOOD UREA NITROGEN 18 mg/dL (7-20); CALCIUM 9.4 mg/dL (8.4-10.2); CARBON DIOXIDE 22 mmol/L (22-30); CHLORIDE 114 mmol/L (98-107); GLUCOSE 104 mg/dL (75-110); POTASSIUM 4.1 mmol/L (3.6-5.0)
[2019-06-08] MEDS: DICYCLOMINE HCL 10 MG CAPSULE PO SCH ×3 (05:39→21:23)
[2019-06-08] MEDS: HEPARIN SOD (PORCINE) 5,000 UNIT/ML 1 ML VIAL SUBCUT SCH ×3 (05:39→21:20)
[2019-06-08 05:45] LABS: DIRECT LDL 97 mg/dL (<100)
[2019-06-08] MEDS: KETOROLAC TROMETHAMINE INJ/PF 30 MG/1 ML SDV IV PRN ×2 (06:29→21:21)
[2019-06-08] MEDS: NICOTINE 7 MG/24 HR PATCH.TD24 TD SCH (10:58)
[2019-06-08] MEDS: PANTOPRAZOLE SODIUM 40 MG TABLET.DR PO SCH ×2 (10:58→17:56)
[2019-06-08] MEDS: FAMOTIDINE INJ/PF 20 MG/2 ML SDV IV SCH ×2 (14:04→21:21)
--- NOTE | 2019-06-08 16:05 | PDOC PROGRESS REPORT ---
Subjective Progress Note for:: 06/08/19 Subjective:: Patient seen resting in bed. She is awake, alert, oriented x3. Continues to complain of nausea and abdominal discomfort. Her pain is in the epigastric region. She denies any chest pain, shortness of breath or dyspnea. She denies any cough. She denies any vomiting or diarrhea. She denies any dysuria. She denies fevers or chills overnight. She states his pain is somewhat different than her normal pancreatitis pain. She denies any significant arthralgias or myalgias. Remaining review of systems are negative. Reason For Visit: ACUTE ON CHRONIC PANCREATITIS Physical Exam Vital Signs: Temp Pulse Resp BP Pulse Ox 98.0 F 52 L 15 140/49 H 98 06/08/19 08:22 06/08/19 10:51 06/08/19 10:51 06/08/19 08:22 06/08/19 08:22 Intake & Output 06/07/19 06/08/19 06/09/19 06:59 06:59 06:59 Intake Total 1000 1360 Balance 1000 1360 Weight 99.2 kg 101.5 kg General appearance: PRESENT: no acute distress, morbidly obese, well-developed, well-nourished Head exam: PRESENT: atraumatic, normocephalic Eye exam: PRESENT: conjunctiva pink, EOMI, PERRLA. ABSENT: scleral icterus Ear exam: PRESENT: normal external ear exam Mouth exam: PRESENT: moist, tongue midline Neck exam: ABSENT: carotid bruit, JVD, lymphadenopathy, thyromegaly Respiratory exam: PRESENT: clear to auscultation martín. ABSENT: rales, rhonchi, wheezes Cardiovascular exam: PRESENT: RRR. ABSENT: diastolic murmur, rubs, systolic murmur Pulses: PRESENT: normal dorsalis pedis pul Vascular exam: PRESENT: normal capillary refill GI/Abdominal exam: PRESENT: normal bowel sounds, soft, tenderness - The epigastric region to palpation. ABSENT: distended, guarding, mass, organolmegaly, rebound Rectal exam: PRESENT: deferred Extremities exam: PRESENT: full ROM. ABSENT: calf tenderness, clubbing, pedal edema Neurological exam: PRESENT: alert, awake, oriented to person, oriented to place, oriented to time, oriented to situation, CN II-XII grossly intact. ABSENT: motor sensory deficit Psychiatric exam: PRESENT: appropriate affect, normal mood. ABSENT: homicidal ideation, suicidal ideation Skin exam: PRESENT: dry, intact, warm. ABSENT: cyanosis, rash Results Laboratory Results: 06/08/19 04:31 06/08/19 04:31 06/08/19 06/08/19 06/08/19 04:31 04:31 04:31 WBC 9.0 RBC 4.37 Hgb 11.9 L Hct 36.6 MCV 84 MCH 27.2 MCHC 32.6 RDW 14.2 H Plt Count 248 Seg Neutrophils % 50.2 Lymphocytes % 44.1 Monocytes % 4.8 Eosinophils % 0.2 Basophils % 0.7 Absolute Neutrophils 4.5 Absolute Lymphocytes 4.0 Absolute Monocytes 0.4 Absolute Eosinophils 0.0 Absolute Basophils 0.1 Sodium 140.7 Potassium 4.1 Chloride 114 H Carbon Dioxide 22 Anion Gap 5 BUN 18 Creatinine 0.96 Est GFR ( Amer) > 60 Est GFR (Non-Af Amer) 59 L Glucose 104 Calcium 9.4 Magnesium 1.9 Triglycerides 135 Cholesterol 162.10 LDL Cholesterol Direct 97 VLDL Cholesterol 27.0 HDL Cholesterol 35 L Lipase 06/08/19 04:31 WBC RBC Hgb Hct MCV MCH MCHC RDW Plt Count Seg Neutrophils % Lymphocytes % Monocytes % Eosinophils % Basophils % Absolute Neutrophils Absolute Lymphocytes Absolute Monocytes Absolute Eosinophils Absolute Basophils Sodium Potassium Chloride Carbon Dioxide Anion Gap BUN Creatinine Est GFR ( Amer) Est GFR (Non-Af Amer) Glucose Calcium Magnesium Triglycerides Cholesterol LDL Cholesterol Direct VLDL Cholesterol HDL Cholesterol Lipase 195.4 06/06/19 06/06/19 06/07/19 18:45 18:45 01:28 Creatine Kinase 70 CK-MB (CK-2) 0.92 Troponin I < 0.012 < 0.012 06/07/19 06/07/19 06/07/19 01:28 06:55 13:42 Creatine Kinase 63 68 65 CK-MB (CK-2) Troponin I Impressions: Chest X-Ray 06/06/19 18:15 IMPRESSION: Cardiomegaly without acute abnormality of the lungs. Abdomen/Pelvis CT 06/06/19 19:32 IMPRESSION: 1. Slightly edematous appearance of the pancreas with peripancreatic stranding compatible with acute pancreatitis TECHNICAL DOCUMENTATION: Quality ID # 436: Final reports with documentation of one or more dose reduction techniques (e.g., Automated exposure control, adjustment of the mA and/or kV according to patient size, use of iterative reconstruction technique) copyright 2011 [employer]- All Rights Reserved Assessment and Plan - Diagnosis (1) Acute on chronic pancreatitis Is this a current diagnosis for this admission?: Yes Plan: Patient's lipase was 587 on admission. Is down to 196 today. We will continue IV hydration, we will add IV Pepcid and continue antiemetics. PRN pain medication. She can have clear liquids if her nausea starts improving. (2) Abdominal pain Is this a current diagnosis for this admission?: Yes Plan: Secondary to #1, will have added IV Pepcid we will continue clear liquids for now (3) Diabetes Qualifiers: Diabetes mellitus type: type 2 Is this a current diagnosis for this admission?: Yes Plan: Humalog sliding scale, will hold oral anti-hypoglycemics until eating. (4) Gastritis Qualifiers: Gastritis type: unspecified gastritis Chronicity: acute Gastritis bleeding: without bleeding Qualified Code(s): K29.00 - Acute gastritis without bleeding Is this a current diagnosis for this admission?: Yes Plan: IV Pepcid and Protonix (6) Morbid obesity Is this a current diagnosis for this admission?: Yes (7) Tobacco dependence Is this a current diagnosis for this admission?: Yes Plan: Patient received tobacco cessation counseling and offered nicotine replacement options - Time Time Spent with patient: 25-34 minutes Medications reviewed and adjusted accordingly: Yes Anticipated discharge: Home Within: within 48 hours - Inpatient Certification Based on my medical assessment, after consideration of the patient's comorbidities, presenting symptoms, or acuity I expect that the services needed warrant INPATIENT care.: Yes I certify that my determination is in accordance with my understanding of [facility]'s requirements for reasonable and necessary INPATIENT services [42 CFR 412.3e].: Yes Medical Necessity: Need For IV Fluids, Need for Pain Control, Risk of Com plication if Not Cared For in Hospital
[2019-06-08] MEDS: ONDANSETRON HCL INJ/PF 4 MG/2 ML SDV IV PRN (21:21)
[2019-06-09] MEDS: FENTANYL CITRATE INJ/PF 100 MCG/2 ML AMPUL IV PRN ×4 (00:02→23:51)
[2019-06-09] MEDS: HEPARIN SOD (PORCINE) 5,000 UNIT/ML 1 ML VIAL SUBCUT SCH ×3 (05:40→22:53)
[2019-06-09] MEDS: DICYCLOMINE HCL 10 MG CAPSULE PO SCH ×3 (05:42→22:54)
[2019-06-09] MEDS: PROMETHAZINE HCL INJ 25 MG/1 ML VIAL IV PRN ×2 (06:29→23:52)
--- NOTE | 2019-06-09 07:55 | Progress Note Acknowledgement ---
Progress Note Acknowledgement Progess Note Acknowledgement: I, the undersigned member of the medical staff with appropriate privileges and with supervisory authority over [ PAC], a dependent practice allied health professional, acknowledge that I have reviewed the progress notes entered on this patient, and in my professional judgment believe that the assessment made and/or any care evidenced was appropriate
[2019-06-09] MEDS: NICOTINE 7 MG/24 HR PATCH.TD24 TD SCH (09:51)
[2019-06-09] MEDS: FAMOTIDINE INJ/PF 20 MG/2 ML SDV IV SCH ×2 (09:51→22:54)
[2019-06-09] MEDS: PANTOPRAZOLE SODIUM 40 MG TABLET.DR PO SCH ×2 (09:51→17:18)
[2019-06-09] MEDS: NORMAL SALINE 1000 ML 1,000 ML IV PRN ×2 (09:51→17:18)
--- NOTE | 2019-06-09 10:45 | PDOC PROGRESS REPORT ---
Subjective Progress Note for:: 06/09/19 Subjective:: Patient has been admitted since Saturday this is day 3 of her admission. Patient had a clear liquid diet ordered yesterday seems to be tolerating that well. Patient has not had a bowel movement for 3 days but is passing gas. Patient's abdominal pain is much improved from the time of admission. Patient has had pancreatitis on multiple occasions and she states that this is about typical for her. Patient was told that we will advance her diet as tolerated and hopefully she will be able to be discharged in the next day or 2. Labs are pending for tomorrow morning patient is medically stable. Reason For Visit: ACUTE ON CHRONIC PANCREATITIS Physical Exam Vital Signs: Temp Pulse Resp BP Pulse Ox 97.8 F 55 L 17 179/49 H 97 06/09/19 07:41 06/09/19 07:41 06/09/19 07:41 06/09/19 07:41 06/09/19 07:41 Intake & Output 06/08/19 06/09/19 06/10/19 06:59 06:59 06:59 Intake Total 1360 2522 Balance 1360 2522 Weight 101.5 kg 101.5 kg General appearance: PRESENT: no acute distress, well-developed, well-nourished Head exam: PRESENT: atraumatic, normocephalic Respiratory exam: PRESENT: clear to auscultation martín. ABSENT: rales, rhonchi, wheezes Cardiovascular exam: PRESENT: RRR. ABSENT: diastolic murmur, rubs, systolic murmur GI/Abdominal exam: PRESENT: hyperactive bowel sounds, soft, other - Patient's abdomen is soft. ABSENT: guarding, rebound, rigid, tenderness Rectal exam: PRESENT: deferred Psychiatric exam: PRESENT: appropriate affect, normal mood. ABSENT: homicidal ideation, suicidal ideation Results Laboratory Results: 06/08/19 04:31 06/08/19 04:31 06/06/19 06/06/19 06/07/19 18:45 18:45 01:28 Creatine Kinase 70 CK-MB (CK-2) 0.92 Troponin I < 0.012 < 0.012 06/07/19 06/07/19 06/07/19 01:28 06:55 13:42 Creatine Kinase 63 68 65 CK-MB (CK-2) Troponin I Impressions: Chest X-Ray 06/06/19 18:15 IMPRESSION: Cardiomegaly without acute abnormality of the lungs. Abdomen/Pelvis CT 06/06/19 19:32 IMPRESSION: 1. Slightly edematous appearance of the pancreas with peripancreatic stranding compatible with acute pancreatitis TECHNICAL DOCUMENTATION: Quality ID # 436: Final reports with documentation of one or more dose reduction techniques (e.g., Automated exposure control, adjustment of the mA and/or kV according to patient size, use of iterative reconstruction technique) copyright 2011 [employer]- All Rights Reserved Assessment and Plan - Diagnosis (1) Pancreatitis, recurrent Is this a current diagnosis for this admission?: Yes (2) Abdominal pain Is this a current diagnosis for this admission?: Yes (3) Acute on chronic pancreatitis Is this a current diagnosis for this admission?: Yes Plan: Patient's lipase was 587 on admission. Is down to 196 today. We will continue IV hydration, we will add IV Pepcid and continue antiemetics. PRN pain medication. She can have clear liquids if her nausea starts improving. 06/09/2019 patient is slowly improving tolerating her clear liquids we will continue clear liquids today and start advancing diet tomorrow. Patient is hav ing no vomiting labs will be rechecked in the morning. Patient appears medically stable - Time Time Spent with patient: 15-24 minutes
[2019-06-09] MEDS: KETOROLAC TROMETHAMINE INJ/PF 30 MG/1 ML SDV IV PRN ×2 (11:20→20:14)
[2019-06-09] MEDS: ONDANSETRON HCL INJ/PF 4 MG/2 ML SDV IV PRN (16:00)
[2019-06-10] MEDS: KETOROLAC TROMETHAMINE INJ/PF 30 MG/1 ML SDV IV PRN ×3 (04:41→17:42)
[2019-06-10] MEDS: NORMAL SALINE 1000 ML 1,000 ML IV PRN (04:43)
[2019-06-10] MEDS: HEPARIN SOD (PORCINE) 5,000 UNIT/ML 1 ML VIAL SUBCUT SCH ×3 (06:22→21:36)
[2019-06-10] MEDS: DICYCLOMINE HCL 10 MG CAPSULE PO SCH ×3 (06:23→21:36)
[2019-06-10 06:32] LABS: ABSOLUTE EOSINOPHILS # (AUTO) 0.1 10^3/uL (0.0-0.6); ABSOLUTE LYMPHOCYTES (AUTO) 2.8 10^3/uL (0.5-4.7); ABSOLUTE MONOCYTES (AUTO) 0.3 10^3/uL (0.1-1.4); ABSOLUTE NEUT (AUTO) 1.6 10^3/uL (1.7-8.2); BASOPHILS % (AUTO) 0.6 % (0-2); EOSINOPHILS % (AUTO) 2.9 % (0-6); HEMATOCRIT 37.5 % (36.0-47.0); MEAN CORPUSCULAR HEMOGLOBIN 27.3 pg (27.0-33.4); MEAN CORPUSCULAR VOLUME 85 fl (80-97); MONOCYTES % (AUTO) 7.1 % (3-13); PLATELET COUNT 233 10^3/uL (150-450); RED CELL DISTRIBUTION WIDTH 14.3 % (11.5-14.0); SEGMENTED NEUTROPHILS % (AUTO) 32.4 % (42-78); TOTAL CELLS COUNTED % (AUTO) 100 %; WHITE BLOOD COUNT 4.9 10^3/uL (4.0-10.5)
[2019-06-10 06:58] LABS: ALANINE AMINOTRANSFERASE 33 U/L (9-52); ALBUMIN 3.1 g/dL (3.5-5.0); ALKALINE PHOSPHATASE 95 U/L (38-126); ASPARTATE AMINO TRANSFERASE 20 U/L (14-36); BILIRUBIN,DIRECT 0.2 mg/dL (0.0-0.4); BILIRUBIN,TOTAL 0.2 mg/dL (0.2-1.3); BLOOD UREA NITROGEN 15 mg/dL (7-20); CALCIUM 9.1 mg/dL (8.4-10.2); GLUCOSE 99 mg/dL (75-110); POTASSIUM 4.2 mmol/L (3.6-5.0); TOTAL PROTEIN 5.9 g/dL (6.3-8.2)
[2019-06-10 07:06] LABS: CARBON DIOXIDE 25 mmol/L (22-30); CHLORIDE 112 mmol/L (98-107)
[2019-06-10 07:10] LABS: ANION GAP 6 (5-19)
[2019-06-10] MEDS: ONDANSETRON HCL INJ/PF 4 MG/2 ML SDV IV PRN (08:11)
[2019-06-10] MEDS: FENTANYL CITRATE INJ/PF 100 MCG/2 ML AMPUL IV PRN (08:12)
[2019-06-10] MEDS: NICOTINE 7 MG/24 HR PATCH.TD24 TD SCH (09:25)
[2019-06-10] MEDS: FAMOTIDINE INJ/PF 20 MG/2 ML SDV IV SCH ×2 (09:27→21:36)
[2019-06-10] MEDS: PANTOPRAZOLE SODIUM 40 MG TABLET.DR PO SCH ×2 (09:27→17:03)
[2019-06-10] MEDS: PROMETHAZINE HCL INJ 25 MG/1 ML VIAL IV PRN ×2 (10:06→16:42)
--- NOTE | 2019-06-10 10:34 | PDOC PROGRESS REPORT ---
Subjective Progress Note for:: 06/10/19 Subjective:: 06/10/2019 Patient is feeling much better although she is ready to start advancing her diet. Less abdominal pain. Patient has not had a bowel movement Reason For Visit: ACUTE ON CHRONIC PANCREATITIS Physical Exam Vital Signs: Temp Pulse Resp BP Pulse Ox 97.7 F 54 L 18 146/69 H 98 06/10/19 08:55 06/10/19 08:55 06/10/19 08:55 06/10/19 08:55 06/10/19 08:55 Intake & Output 06/09/19 06/10/19 06/11/19 06:59 06:59 06:59 Intake Total 2522 2901 Balance 2522 2901 Weight 101.5 kg 103.8 kg General appearance: PRESENT: no acute distress, well-developed, well-nourished Head exam: PRESENT: atraumatic, normocephalic Eye exam: PRESENT: conjunctiva pink, EOMI, PERRLA. ABSENT: scleral icterus Respiratory exam: PRESENT: clear to auscultation martín. ABSENT: rales, rhonchi, wheezes Cardiovascular exam: PRESENT: RRR. ABSENT: diastolic murmur, rubs, systolic murmur GI/Abdominal exam: PRESENT: normal bowel sounds, soft. ABSENT: distended, guarding, mass, organolmegaly, rebound, tenderness Neurological exam: PRESENT: alert, awake, oriented to person, oriented to place, oriented to time, oriented to situation, CN II-XII grossly intact. ABSENT: motor sensory deficit Psychiatric exam: PRESENT: appropriate affect, normal mood. ABSENT: homicidal ideation, suicidal ideation Skin exam: PRESENT: dry, intact, warm. ABSENT: cyanosis, rash Results Laboratory Results: 06/10/19 05:38 06/10/19 05:38 06/10/19 06/10/19 05:38 05:38 WBC 4.9 RBC 4.40 Hgb 12.0 Hct 37.5 MCV 85 MCH 27.3 MCHC 32.0 RDW 14.3 H Plt Count 233 Seg Neutrophils % 32.4 L Lymphocytes % 57.0 H Monocytes % 7.1 Eosinophils % 2.9 Basophils % 0.6 Absolute Neutrophils 1.6 L Absolute Lymphocytes 2.8 Absolute Monocytes 0.3 Absolute Eosinophils 0.1 Absolute Basophils 0.0 Sodium 142.7 Potassium 4.2 Chloride 112 H Carbon Dioxide 25 Anion Gap 6 BUN 15 Creatinine 1.05 Est GFR ( Amer) > 60 Est GFR (Non-Af Amer) 53 L Glucose 99 Calcium 9.1 Total Bilirubin 0.2 AST 20 ALT 33 Alkaline Phosphatase 95 Total Protein 5.9 L Albumin 3.1 L Lipase 167.4 06/06/19 06/06/19 06/07/19 18:45 18:45 01:28 Creatine Kinase 70 CK-MB (CK-2) 0.92 Troponin I < 0.012 < 0.012 06/07/19 06/07/19 06/07/19 01:28 06:55 13:42 Creatine Kinase 63 68 65 CK-MB (CK-2) Troponin I Impressions: Chest X-Ray 06/06/19 18:15 IMPRESSION: Cardiomegaly without acute abnormality of the lungs. Abdomen/Pelvis CT 06/06/19 19:32 IMPRESSION: 1. Slightly edematous appearance of the pancreas with peripancreatic stranding compatible with acute pancreatitis TECHNICAL DOCUMENTATION: Quality ID # 436: Final reports with documentation of one or more dose reduction techniques (e.g., Automated exposure control, adjustment of the mA and/or kV according to patient size, use of iterative reconstruction technique) copyright 2011 [employer]- All Rights Reserved Assessment and Plan - Diagnosis (1) Pancreatitis, recurrent Is this a current diagnosis for this admission?: Yes Plan: 06-10-19.Patient is improving and wishes to try soft diet and advance (2) Abdominal pain Is this a current diagnosis for this admission?: Yes Plan: Secondary to #1, will have added IV Pepcid we will continue clear liquids for now 06/10/2019 much less abdominal pain. No recent bowel movement. (3) Acute on chronic pancreatitis Is this a current diagnosis for this admission?: Yes Plan: Patient's lipase was 587 on admission. Is down to 196 today. We will continue IV hydration, we will add IV Pepcid and continue antiemetics. PRN pain medication. She can have clear liquids if her nausea starts improving. 06/09/2019 patient is slowly improving tolerating her clear liquids we will continue clear liquids today and start advancing diet tomorrow. Patient is having no vomiting labs will be rechecked in the morning. Patient appears medically stable 06/10/2019 lipase is down to 160 White count is normal - Time Time Spent with patient: 15-24 minutes
[2019-06-10] MEDS ORDERED: MAGNESIUM HYDROXIDE SUSP 30 ML UDCUP PO PRN (17:45)
[2019-06-11] MEDS: KETOROLAC TROMETHAMINE INJ/PF 30 MG/1 ML SDV IV PRN ×2 (00:07→09:36)
[2019-06-11] MEDS: DICYCLOMINE HCL 10 MG CAPSULE PO SCH ×3 (07:04→21:41)
[2019-06-11] MEDS: HEPARIN SOD (PORCINE) 5,000 UNIT/ML 1 ML VIAL SUBCUT SCH ×3 (07:04→21:41)
[2019-06-11] MEDS: PANTOPRAZOLE SODIUM 40 MG TABLET.DR PO SCH ×2 (09:37→17:38)
[2019-06-11] MEDS: FAMOTIDINE INJ/PF 20 MG/2 ML SDV IV SCH ×2 (09:37→21:41)
[2019-06-11] MEDS: ONDANSETRON HCL INJ/PF 4 MG/2 ML SDV IV PRN ×3 (09:37→23:31)
[2019-06-11] MEDS: NICOTINE 7 MG/24 HR PATCH.TD24 TD SCH (09:37)
[2019-06-11] MEDS: PROMETHAZINE HCL INJ 25 MG/1 ML VIAL IV PRN (11:38)
[2019-06-11] MEDS ORDERED: NORMAL SALINE 1000 ML 1,000 ML IV PRN (16:17)
[2019-06-11] MEDS ORDERED: MORPHINE SULFATE 10 MG/ML INJ IV SCH (17:00)
[2019-06-11] MEDS ORDERED: OXYCODONE-ACETAMINOPHEN 5-325 MG TABLET PO PRN (17:02)
[2019-06-11] MEDS ORDERED: DIPHENHYDRAMINE HCL 25 MG CAPSULE PO PRN (17:03)
[2019-06-11] MEDS ORDERED: MORPHINE SULFATE 10 MG/ML INJ ONE (17:26)
[2019-06-11] MEDS ORDERED: DIPHENHYDRAMINE HCL 25 MG CAPSULE ONE (17:26)
--- NOTE | 2019-06-11 17:26 | PDOC PROGRESS REPORT ---
Subjective Progress Note for:: 06/11/19 Subjective:: 06/11/2019. No acute events overnight. Patient still complaining of epigastric abdominal pain. Having normal bowel and bladder movement, refusing to eat is stating that makes her nauseous and she vomits but states to show any evidence of vomiting, after eating patient started spitting stating that food makes her nauseous. Patient stating that her pain is only resolved with Dilaudid and reports allergic reaction to all other opiates. Chart review shows that patient does not have any true allergies to opiates and just reports itching when she receives morphine. Is very difficult sort of patient truly have severe abdominal pain or there is just drug-seeking behavior. Denies any fever, shortness of breath, chest pain, diarrhea, constipation or any urinary symptoms. Reason For Visit: ACUTE ON CHRONIC PANCREATITIS Physical Exam Vital Signs: Temp Pulse Resp BP Pulse Ox 97.8 F 56 L 23 H 150/65 H 96 06/11/19 12:42 06/11/19 14:00 06/11/19 12:42 06/11/19 12:42 06/11/19 12:42 Intake & Output 06/10/19 06/11/19 06/12/19 06:59 06:59 06:59 Intake Total 2901 1788 140 Output Total 450 200 Balance 2901 1338 -60 Weight 103.8 kg 102.8 kg General appearance: PRESENT: no acute distress, morbidly obese, well-developed, well-nourished Head exam: PRESENT: atraumatic, normocephalic Respiratory exam: PRESENT: clear to auscultation martín. ABSENT: rales, rhonchi, wheezes Cardiovascular exam: PRESENT: RRR. ABSENT: diastolic murmur, rubs, systolic murmur GI/Abdominal exam: PRESENT: normal bowel sounds, soft, tenderness - Epigastric.. ABSENT: distended, guarding, mass, organolmegaly, rebound Extremities exam: PRESENT: full ROM. ABSENT: calf tenderness, clubbing, pedal edema Neurological exam: PRESENT: alert, awake, oriented to person, oriented to place, oriented to time, oriented to situation, CN II-XII grossly intact. ABSENT: motor sensory deficit Results Laboratory Results: 06/10/19 05:38 06/10/19 05:38 06/06/19 06/06/19 06/07/19 18:45 18:45 01:28 Creatine Kinase 70 CK-MB (CK-2) 0.92 Troponin I < 0.012 < 0.012 06/07/19 06/07/19 06/07/19 01:28 06:55 13:42 Creatine Kinase 63 68 65 CK-MB (CK-2) Troponin I Impressions: Chest X-Ray 06/06/19 18:15 IMPRESSION: Cardiomegaly without acute abnormality of the lungs. Abdomen/Pelvis CT 06/06/19 19:32 IMPRESSION: 1. Slightly edematous appearance of the pancreas with peripancreatic stranding compatible with acute pancreatitis TECHNICAL DOCUMENTATION: Quality ID # 436: Final reports with documentation of one or more dose reduction techniques (e.g., Automated exposure control, adjustment of the mA and/or kV according to patient size, use of iterative reconstruction technique) copyright 2011 [employer]- All Rights Reserved Assessment and Plan - Diagnosis (1) Pancreatitis, recurrent Is this a current diagnosis for this admission?: Yes Plan: Having normal bowel and bladder movement, refusing to eat stating that it makes her nauseous and she vomits but fails provide any evidence of vomiting. After eating patient starts spitting stating that food makes her nauseous. Patient stating that her pain is only resolved with Dilaudid and reports allergic reaction to all other opiates. Chart review shows that patient does not have any true allergies to opiates and just reports itching when she receives morphine. It is very difficult sort of patient truly have severe abdominal pain at this point or this is just drug-seeking behavior. 06/06/2019. CT abdomen: Slightly edematous appearance of the pancreas with peripancreatic stranding compatible acute pancreatitis. IV fluids, analgesics, antiemetics, advance diet as tolerated. If p.o. tolerant and having normal bowel movements will DC home tomorrow. (2) Abdominal pain Is this a current diagnosis for this admission?: Yes Plan: Secondary to #1 (3) Morbid obesity Is this a current diagnosis for this admission?: Yes (4) Morbid obesity with BMI of 40.0-44.9, adult Is this a current diagnosis for this admission?: Yes Plan: Diet and lifestyle modification recommended.
[2019-06-11] MEDS: MORPHINE SULFATE 10 MG/ML INJ IV PRN ×2 (17:31→23:31)
[2019-06-12 04:31] LABS: ABSOLUTE BASOPHILS # (AUTO) 0.1 10^3/uL (0.0-0.2); ABSOLUTE EOSINOPHILS # (AUTO) 0.2 10^3/uL (0.0-0.6); ABSOLUTE LYMPHOCYTES (AUTO) 3.1 10^3/uL (0.5-4.7); ABSOLUTE MONOCYTES (AUTO) 0.5 10^3/uL (0.1-1.4); ABSOLUTE NEUT (AUTO) 1.8 10^3/uL (1.7-8.2); BASOPHILS % (AUTO) 1.2 % (0-2); EOSINOPHILS % (AUTO) 3.3 % (0-6); HEMATOCRIT 40.1 % (36.0-47.0); HEMOGLOBIN 13.1 g/dL (12.0-15.5); LYMPHOCYTES % (AUTO) 54.7 % (13-45); MEAN CORPUSCULAR HEMOGLOBIN 27.4 pg (27.0-33.4); MEAN CORPUSCULAR HGB CONC 32.6 g/dL (32.0-36.0); MEAN CORPUSCULAR VOLUME 84 fl (80-97); MONOCYTES % (AUTO) 8.4 % (3-13); PLATELET COUNT 197 10^3/uL (150-450); RED BLOOD COUNT 4.77 10^6/uL (3.72-5.28); RED CELL DISTRIBUTION WIDTH 14.1 % (11.5-14.0); SEGMENTED NEUTROPHILS % (AUTO) 32.4 % (42-78); TOTAL CELLS COUNTED % (AUTO) 100 %; WHITE BLOOD COUNT 5.7 10^3/uL (4.0-10.5)
[2019-06-12 04:49] LABS: ALANINE AMINOTRANSFERASE 26 U/L (9-52); ALBUMIN 3.4 g/dL (3.5-5.0); ALKALINE PHOSPHATASE 87 U/L (38-126); ANION GAP 5 (5-19); ASPARTATE AMINO TRANSFERASE 21 U/L (14-36); BILIRUBIN,DIRECT 0.2 mg/dL (0.0-0.4); BILIRUBIN,TOTAL 0.4 mg/dL (0.2-1.3); BLOOD UREA NITROGEN 8 mg/dL (7-20); CALCIUM 9.6 mg/dL (8.4-10.2); CARBON DIOXIDE 28 mmol/L (22-30); CHLORIDE 108 mmol/L (98-107); GLUCOSE 100 mg/dL (75-110); POTASSIUM 4.3 mmol/L (3.6-5.0); TOTAL PROTEIN 6.2 g/dL (6.3-8.2)
[2019-06-12] MEDS: HEPARIN SOD (PORCINE) 5,000 UNIT/ML 1 ML VIAL SUBCUT SCH (06:00)
[2019-06-12] MEDS: DICYCLOMINE HCL 10 MG CAPSULE PO SCH (06:10)
[2019-06-12] MEDS: PANTOPRAZOLE SODIUM 40 MG TABLET.DR PO SCH (09:04)
[2019-06-12] MEDS: NICOTINE 7 MG/24 HR PATCH.TD24 TD SCH (09:04)
[2019-06-12] MEDS: FAMOTIDINE INJ/PF 20 MG/2 ML SDV IV SCH (09:07)
[2019-06-12 12:25] VITALS: BP 135/52
--- NOTE | 2019-06-18 12:52 | PDOC DISCHARGE SUMMARY ---
General - Admit/Disc Date/PCP Admission Date/Primary Care Provider: 06/07/19 00:50 SACHI HOWARD MD Discharge Date: 06/12/19 - Discharge Diagnosis (1) Pancreatitis, recurrent Is this a current diagnosis for this admission?: Yes Summary: 06/12/2019 patient has had multiple bouts of pancreatitis in the past. Patient had several days of being n.p.o. and then IV fluids with good improvement of her abdominal pain. Patient's lipase was 526 on admission at the time of discharge, the day before was 167 (2) Abdominal pain Is this a current diagnosis for this admission?: Yes Summary: 06/12/2019 patient was admitted with IV pain medications, however her pain improved and therefore she was switched to p.o. analgesics. (3) Acute on chronic pancreatitis Is this a current diagnosis for this admission?: Yes - Additional Information Resuscitation Status: Full Code Discharge Diet: As Tolerated Discharge Activity: Activity As Tolerated Prescriptions: RX: Oxycodone HCl/Acetaminophen [Percocet 5-325 mg Tablet] 1 tab PO Q4HP PRN #10 tablet PRN Reason: Pain Scale Of 5 Home Medications: RX: Dicyclomine HCl [Bentyl 10 mg Capsule] 10 mg PO Q8 06/07/19 RX: Lipase/Protease/Amylase [Creon Dr 24,000 Units Capsule] 1 cap PO TID RX: Pantoprazole Sodium [Protonix] 40 mg PO BID 06/07/19 RX: Oxycodone HCl/Acetaminophen [Percocet 5-325 mg Tablet] 1 tab PO Q4HP PRN #10 tablet 06/12/19 History of Present Illness History of Present Illness: FLORENCE GR is a 59 year old female Hospital Course Hospital Course: 06/12/2019 patient came in and on admission had a CT scan of the abdomen and pelvis which showed pancreatic stranding just of a pancreatitis. Patient was kept n.p.o. and given IV fluids and IV analgesics. Labs were followed daily. Patient had an unremarkable hospital course patient was discharged home with prescription for Percocet 03/20/2025 #10. Patient was told to contact her primary care physician to be seen early next week Physical Exam Vital Signs: Temp Pulse Resp BP Pulse Ox 98.5 F 54 L 20 135/52 H 96 06/12/19 12:18 06/12/19 12:18 06/12/19 12:18 06/12/19 12:18 06/12/19 12:18 Intake & Output 06/11/19 06/12/19 06/13/19 06:59 06:59 06:59 Intake Total 1975 703 7512 Output Total 450 1600 Balance 1338 -648 1120 Weight 102.8 kg 104.5 kg Results Laboratory Results: 06/12/19 03:43 06/12/19 03:43 06/12/19 06/12/19 03:43 03:43 WBC 5.7 RBC 4.77 Hgb 13.1 Hct 40.1 MCV 84 MCH 27.4 MCHC 32.6 RDW 14.1 H Plt Count 197 Seg Neutrophils % 32.4 L Lymphocytes % 54.7 H Monocytes % 8.4 Eosinophils % 3.3 Basophils % 1.2 Absolute Neutrophils 1.8 Absolute Lymphocytes 3.1 Absolute Monocytes 0.5 Absolute Eosinophils 0.2 Absolute Basophils 0.1 Sodium 141.2 Potassium 4.3 Chloride 108 H Carbon Dioxide 28 Anion Gap 5 BUN 8 Creatinine 0.98 Est GFR ( Amer) > 60 Est GFR (Non-Af Amer) 58 L Glucose 100 Calcium 9.6 Magnesium 1.6 Total Bilirubin 0.4 AST 21 ALT 26 Alkaline Phosphatase 87 Total Protein 6.2 L Albumin 3.4 L 06/06/19 06/06/19 06/07/19 18:45 18:45 01:28 Creatine Kinase 70 CK-MB (CK-2) 0.92 Troponin I < 0.012 < 0.012 06/07/19 06/07/19 06/07/19 01:28 06:55 13:42 Creatine Kinase 63 68 65 CK-MB (CK-2) Troponin I Impressions: Chest X-Ray 06/06/19 18:15 IMPRESSION: Cardiomegaly without acute abnormality of the lungs. Abdomen/Pelvis CT 06/06/19 19:32 IMPRESSION: 1. Slightly edematous appearance of the pancreas with peripancreatic stranding compatible with acute pancreatitis TECHNICAL DOCUMENTATION: Quality ID # 436: Final reports with documentation of one or more dose reduction techniques (e.g., Automated exposure control, adjustment of the mA and/or kV according to patient size, use of iterative reconstruction technique) copyright 2011 [employer] All Rights Reserved Qualifiers - * PATIENT BEING DISCHARGED WITH ANY OF THE FOLLOWING DIAGNOSIS: No VTE patient discharged on overlapping Therapy?: No Acute Heart Failure - Is this a Heart Failure Patient?: No Plan Time Spent: Greater than 30 Minutes - Patient was discharged home medically stable in good condition
== END 2019-06-12 13:55 | disposition home or self-care (01) | DRG 439 ==
LOC: ER 17:08 → EH 06-07 00:50 → 5 06-07 02:45
PROVIDERS: ADMIT Internal Medicine; ATTEND Internal Medicine
DX: K85.90 Acute pancreatitis without necrosis or infection, unspecified (principal); Z68.41 Body mass index [BMI] 40.0-44.9, adult; K86.1 Other chronic pancreatitis; E11.9 Type 2 diabetes mellitus without complications; I10 Essential (primary) hypertension; E66.01 Morbid (severe) obesity due to excess calories; E03.9 Hypothyroidism, unspecified; E78.5 Hyperlipidemia, unspecified; K21.9 Gastro-esophageal reflux disease without esophagitis; K29.00 Acute gastritis without bleeding; E78.00 Pure hypercholesterolemia, unspecified; F17.200 Nicotine dependence, unspecified, uncomplicated; Z88.8 Allergy status to other drugs, medicaments and biological substances; Z88.6 Allergy status to analgesic agent; Z91.041 Radiographic dye allergy status; Z90.49 Acquired absence of other specified parts of digestive tract; Z90.710 Acquired absence of both cervix and uterus
CPT/HCPCS: 36415; 71045; 74177; 80048; 80053; 80061; 80307; 82550; 82553; 82962; 83690; 83735; 84484; 85025; 93005; 93010; 96361; 96374; 96375; 99285; J1200; J1644; J1885; J2270; J2405; J2550; J2930; J3010; J3490; J7030; S0028

== ENCOUNTER → 2019-09-28 | Outpatient (CLI) | payer BC ==
[2019-09-28 17:06] LABS: A TYPE INFLUENZA AG NEGATIVE (NEGATIVE); B INFLUENZA AG NEGATIVE (NEGATIVE)
== END ==
LOC: OD 16:12
PROVIDERS: ATTEND Family Medicine Geriatric Medicine
DX: J01.40 Acute pansinusitis, unspecified (principal)
CPT/HCPCS: 87804

== ENCOUNTER → 2019-11-20 | Outpatient (CLI) | payer BC ==
--- NOTE | 2019-11-20 17:36 | RADIOLOGY REPORT (SQ) ---
EXAM DESCRIPTION: CHEST 2 VIEWS COMPLETED DATE/TIME: 11/20/2019 5:17 pm REASON FOR STUDY: (R05)COUGH COMPARISON: 06/06/2019 TECHNIQUE: Frontal and lateral radiographic views of the chest acquired. NUMBER OF VIEWS: Two view. LIMITATIONS: None. FINDINGS: LUNGS AND PLEURA: No pneumothorax. No consolidation or pleural effusion. MEDIASTINUM AND HILAR STRUCTURES: Stable. HEART AND VASCULAR STRUCTURES: Stable. BONES: No acute findings. HARDWARE: None in the chest. OTHER: No other significant finding. IMPRESSION: NO ACUTE FINDINGS. TECHNICAL DOCUMENTATION: JOB ID: [id number] 2010 [employer]- All Rights Reserved Reading location - IP/workstation name: [employer]
== END ==
LOC: RAD 17:05
PROVIDERS: ATTEND Nurse Practitioner Family
DX: R05 Cough (principal)
CPT/HCPCS: 71046

== ENCOUNTER 2019-12-10 07:17 | Emergency (ER) | payer BC ==
[2019-12-10] MEDS ORDERED: PREDNISONE 20 MG TABLET PO ONE (07:33)
[2019-12-10] MEDS ORDERED: IPRATROPIUM/ALBUTEROL 0.5-2.5 MG/3 ML AMPUL NEB ONE (07:33)
[2019-12-10] MEDS: ALBUTEROL SULFATE 0.083% NEB 2.5 MG/3 ML AMPUL NEB SCH ×2 (08:11→08:39)
--- NOTE | 2019-12-10 08:20 | RADIOLOGY REPORT (SQ) ---
EXAM DESCRIPTION: CHEST 2 VIEWS COMPLETED DATE/TIME: 12/10/2019 8:09 am REASON FOR STUDY: DB wheezing COMPARISON: 11/20/2019. EXAM PARAMETERS: NUMBER OF VIEWS: two views TECHNIQUE: Digital Frontal and Lateral radiographic views of the chest acquired. RADIATION DOSE: NA LIMITATIONS: none FINDINGS: LUNGS AND PLEURA: No opacities, masses or pneumothorax. No pleural effusion. MEDIASTINUM AND HILAR STRUCTURES: No masses or contour abnormalities. HEART AND VASCULAR STRUCTURES: Heart normal size. No evidence for failure. BONES: No acute findings. Degenerative changes in the spine. HARDWARE: Clips in the upper abdomen. OTHER: No other significant finding. IMPRESSION: NO ACUTE RADIOGRAPHIC FINDING IN THE CHEST. TECHNICAL DOCUMENTATION: JOB ID: [id number] [employer]- All Rights Reserved Reading location - IP/workstation name: [email or web address]
--- NOTE | 2019-12-10 09:53 | ER Document Report ---
ED General - General Chief Complaint: Cold Symptoms Stated Complaint: COLD SYMPTOMS Time Seen by Provider: 12/10/19 09:11 Primary Care Provider: JONY JEAN-BAPTISTE MD [Primary Care Provider] - Follow up as needed TRAVEL OUTSIDE OF THE [place] IN LAST 30 DAYS: No - HPI Notes: 59-year-old female presents to the emergency room for complaints of sinus pressure, cough, ear pain, headache and chest pain for the last 5 days. Has tried [id number] halls and lodges ends without relief. Denies any sick contacts. Patient did not get a flu shot. Does smoke, no history of asthma. Denies decreased eating or decreased eating. She states that she does feel wheezy. patient reports she is having chest pain with coughing only for last 5 days. Denies fevers, chills,palpitations, shortness of breath, dyspnea, nausea, vomiting, diarrhea, abdominal pain, hematuria,blurred vision, double vision, loss of vision, speech changes, LH, dizziness, syncope, headaches, wheezing, ST, URI, neck pain, weakness, bowel or bladder dysfunction, saddle anesthesia, numbness or tingling in bilateral upper or lower extremities equally, muscle paralysis, weakness in bilateral upper or lower extremities equally or rash. - Related Data Allergies/Adverse Reactions: Iodinated Contrast Media Allergy (Unknown, Verified 12/10/19 09:14) Hives aspirin [Aspirin] Allergy (Verified 12/10/19 07:27) STOMACH PAIN ibuprofen [From Motrin] Allergy (Verified 12/10/19 07:27) STOMACH PAIN iodine [Iodine] Allergy (Verified 12/10/19 07:27) Hives morphine [Morphine] Allergy (Verified 12/10/19 07:27) Generalized Itching meloxicam [From Mobic] Adverse Reaction (Verified 12/10/19 07:27) STOMACH PAIN Home Medications: Protonix Past Medical History - General Information source: Patient - Social History Smoking Status: Never Smoker Chew tobacco use (# tins/day): No Frequency of alcohol use: None Drug Abuse: None Family History: Reviewed & Not Pertinent, CAD Patient has suicidal ideation: No Patient has homicidal ideation: No - Past Medical History Cardiac Medical History: Reports: Hx Hypercholesterolemia Denies: Hx Coronary Artery Disease, Hx Heart Attack, Hx Hypertension Pulmonary Medical History: Reports: Hx Bronchitis Denies: Hx Asthma, Hx COPD, Hx Pneumonia Neurological Medical History: Denies: Hx Cerebrovascular Accident, Hx Seizures Endocrine Medical History: Reports: Hx Diabetes Mellitus Type 2, Hx Hypothyroidism Renal/ Medical History: Denies: Hx Peritoneal Dialysis GI Medical History: Reports: Hx Gastroesophageal Reflux Disease, Hx Pancreatitis - chronic Musculoskeletal Medical History: Denies Hx Arthritis Psychiatric Medical History: Denies: Hx Depression Past Surgical History: Reports: Hx Appendectomy, Hx Breast Surgery - biopsy x 3, Hx Cholecystectomy, Hx Hysterectomy - Immunizations Hx Diphtheria, Pertussis, Tetanus Vaccination: Yes Review of Systems - Review of Systems Constitutional: No symptoms reported EENT: See HPI Cardiovascular: See HPI Respiratory: See HPI Gastrointestinal: No symptoms reported Genitourinary: No symptoms reported Female Genitourinary: No symptoms reported Musculoskeletal: No symptoms reported Skin: No symptoms reported Hematologic/Lymphatic: No symptoms reported Neurological/Psychological: No symptoms reported Physical Exam - Vital signs Vitals: Temp Pulse Resp BP Pulse Ox 98.1 F 79 16 152/69 H 94 12/10/19 07:22 12/10/19 07:22 12/10/19 07:22 12/10/19 07:22 12/10/19 07:22 - Notes Notes: PHYSICAL EXAMINATION:reviewed vital signs by RN GENERAL: Well-appearing, well-nourished and in no acute distress. HEAD: Atraumatic, normocephalic. EYES: Pupils equal round and reactive to light, extraocular movements intact, conjunctiva are normal. ENT: Right TM with erythema, buldging. L TM intact with serous effusion, no erythema. Nares boggy bilaterally, oropharynx with erythema without exudates. Moist mucous membranes. NECK: Normal range of motion, supple without lymphadenopathy LUNGS: noted wheezing in all lobes that cleared with breathing treatments. No wheezes rales or rhonchi. HEART: Regular rate and rhythm without murmurs ABDOMEN: Soft, nontender, nondistended abdomen. No guarding, no rebound. No masses appreciated. Female : deferred Musculoskeletal: Normal range of motion, no pitting or edema. No cyanosis. NEUROLOGICAL: Cranial nerves grossly intact. Normal speech, normal gait. Normal sensory, motor exams PSYCH: Normal mood, normal affect. SKIN: Warm, Dry, normal turgor, no rashes or lesions noted. Course - Re-evaluation Re-evalutation: 12/10/19 11:46 Afebrile vital stable no distress. Nurse's notes reviewed. Chest x-ray negative for pneumonia or any acute pulmonary findings. Chest x-ray negative for any acute findings. Patient given 3 breathing treatments which resolved her wheezing as well as a dose of prednisone. Patient does appear to have a right acute otitis media will treat appropriately with antibiotics as well as give patient's prednisone and antitussive medication as well as rescue inhaler. Advised alternating Tylenol and ibuprofen for pain control. Follow-up with primary care provider next 24 to 48 hours. After performing a Medical Screening Examination, I estimate there is LOW risk for RUPTURED ESOPHAGUS, PNEUMOTHORAX, PULMONARY EMBOLISM, ACUTE CORONARY SYNDROME, OR THORACIC AORTIC DISSECTION, thus I consider the discharge disposition reasonable. I have reevaluated this patient multiple times and no significant life threatening changes are noted. The patient and I have discussed the diagnosis and risks, and we agree with discharging home with close follow-up. We also discussed returning to the Emergency Department immediately if new or worsening symptoms occur. We have discussed the symptoms which are most concerning (e.g., bloody sputum, worsening pain or shortness of breath) that necessitate immediate return. 12/10/19 11:49 - Vital Signs Vital signs: Temp Pulse Resp BP Pulse Ox 98.4 F 80 16 136/55 H 95 12/10/19 09:23 12/10/19 09:23 12/10/19 09:23 12/10/19 09:23 12/10/19 09:23 - Laboratory Result Diagrams: 12/10/19 09:48 12/10/19 09:48 Laboratory results interpreted by me: 12/10/19 12/10/19 09:48 09:48 RDW 14.2 H Est GFR (MDRD) Non-Af 56 L Glucose 135 H Calcium 10.4 H Alkaline Phosphatase 151 H Discharge - Discharge Clinical Impression: Cough AOM (acute otitis media) Qualifiers: Otitis media type: suppurative Laterality: right Recurrence: non-recurrent Spontaneous tympanic membrane rupture: without spontaneous rupture Qualified Code(s): H66.001 - Acute suppurative otitis media without spontaneous rupture of ear drum, right ear Condition: Stable Disposition: HOME, SELF-CARE Instructions: Cough Suppressant & Expectorant Medications, Otitis Media ([facility]), Upper Respiratory Illness ([facility]) Additional Instructions: Take medications as directed. Your chest x-ray was negative for any acute pneumonia or bacterial infections. You do have a right ear infection. Please carry rescue inhaler on your person. Follow-up with your primary care provider within the next 24 to 48 hours. Please return to the emergency room if your symptoms become worse. Return immediately for any new or worsening symptoms. Follow up with primary care provider, call tomorrow to make followup appointment. Prescriptions: Albuterol Sulfate [Proair Respiclick] 90 mcg IH Q4HP PRN #1 aer.[id number] PRN Reason: Benzonatate [Tessalon Perles 100 mg Capsule] 100 mg PO Q8HP PRN #20 capsule PRN Reason: Prednisone [Deltasone 20 mg Tablet] 3 tab PO DAILY 5 Days #15 tablet Azithromycin [Zithromax] 250 mg PO DAILY 5 Days #6 tablet Referrals: JONY JEAN-BAPTISTE MD [Primary Care Provider] - Follow up as needed
[2019-12-10 10:02] LABS: ABSOLUTE EOSINOPHILS # (AUTO) 0.1 10^3/uL (0.0-0.6); ABSOLUTE MONOCYTES (AUTO) 0.3 10^3/uL (0.1-1.4); ABSOLUTE NEUT (AUTO) 4.1 10^3/uL (1.7-8.2); BASOPHILS % (AUTO) 0.5 % (0-2); EOSINOPHILS % (AUTO) 2.1 % (0-6); HEMATOCRIT 43.1 % (36.0-47.0); HEMOGLOBIN 14.3 g/dL (12.0-15.5); LYMPHOCYTES % (AUTO) 30.7 % (13-45); MEAN CORPUSCULAR HEMOGLOBIN 28.3 pg (27.0-33.4); MEAN CORPUSCULAR HGB CONC 33.3 g/dL (32.0-36.0); MEAN CORPUSCULAR VOLUME 85 fl (80-97); MONOCYTES % (AUTO) 4.1 % (3-13); PLATELET COUNT 254 10^3/uL (150-450); RED BLOOD COUNT 5.08 10^6/uL (3.72-5.28); RED CELL DISTRIBUTION WIDTH 14.2 % (11.5-14.0); SEGMENTED NEUTROPHILS % (AUTO) 62.6 % (42-78); TOTAL CELLS COUNTED % (AUTO) 100 %; WHITE BLOOD COUNT 6.5 10^3/uL (4.0-10.5)
[2019-12-10 10:36] LABS: ALBUMIN 4.5 g/dL (3.5-5.0); ALKALINE PHOSPHATASE 151 U/L (38-126); ANION GAP 9 (5-19); ASPARTATE AMINO TRANSFERASE 25 U/L (14-36); BILIRUBIN,TOTAL 0.4 mg/dL (0.2-1.3); BLOOD UREA NITROGEN 14 mg/dL (7-20); CALCIUM 10.4 mg/dL (8.4-10.2); CARBON DIOXIDE 28 mmol/L (22-30); CHLORIDE 103 mmol/L (98-107); GLUCOSE 135 mg/dL (75-110); POTASSIUM 3.8 mmol/L (3.6-5.0); TOTAL PROTEIN 8.1 g/dL (6.3-8.2)
[2019-12-10 12:12] VITALS: BP 169/73
== END 2019-12-10 12:13 | disposition home or self-care (01) ==
LOC: ER 07:17
DX: R05 Cough (principal); H66.001 Acute suppurative otitis media without spontaneous rupture of ear drum, right ear; R51 Headache; R07.9 Chest pain, unspecified; R06.2 Wheezing; R09.89 Other specified symptoms and signs involving the circulatory and respiratory systems; E11.9 Type 2 diabetes mellitus without complications; K21.9 Gastro-esophageal reflux disease without esophagitis; Z79.899 Other long term (current) drug therapy; Z91.041 Radiographic dye allergy status; Z88.8 Allergy status to other drugs, medicaments and biological substances; Z88.6 Allergy status to analgesic agent; Z88.5 Allergy status to narcotic agent
CPT/HCPCS: 94640 ×2; 99283; 36415; 85025; 80053; 84484; 71046; J7512; J7620

== ENCOUNTER 2019-12-13 11:20 | Emergency (ER) | payer BC ==
[2019-12-13] MEDS ORDERED: IPRATROPIUM/ALBUTEROL 0.5-2.5 MG/3 ML AMPUL NEB ONE (12:46)
--- NOTE | 2019-12-13 12:50 | ER Document Report ---
ED Medical Screen (RME) - General Chief Complaint: Cough Stated Complaint: COGESTION/WHEEZING Time Seen by Provider: 12/13/19 12:32 Primary Care Provider: JONY JEAN-BAPTISTE MD [Primary Care Provider] - Follow up as needed Notes: Patient is a 59-year-old female who presents to the emergency department with a chief complaint of cough and wheezing. Patient reports she was seen here 3 days ago for the same symptoms. Patient reports she did receive multiple doses of albuterol treatments at that time which did seem to help with her symptoms. Patient reports she was placed on Z-Angel for right ear infection, albuterol inhaler, Tessalon Perles and prednisone. Patient reports that the right ear pain has since improved but she continues to have the wheezing and shortness of breath. Patient reports chills without notable fever. Patient continues to have the productive cough with brown sputum. Patient denies any history of COPD, asthma or emphysema. Patient reports now her symptoms have been present for about 8 days. Patient does report chest pain that is worse with cough and movement. TRAVEL OUTSIDE OF THE [place] IN LAST 30 DAYS: No - Related Data Allergies/Adverse Reactions: Iodinated Contrast Media Allergy (Unknown, Verified 12/13/19 12:19) Hives aspirin [Aspirin] Allergy (Verified 12/13/19 12:19) STOMACH PAIN ibuprofen [From Motrin] Allergy (Verified 12/13/19 12:19) STOMACH PAIN iodine [Iodine] Allergy (Verified 12/13/19 12:19) Hives morphine [Morphine] Allergy (Verified 12/13/19 12:19) Generalized Itching meloxicam [From Mobic] Adverse Reaction (Verified 12/13/19 12:19) STOMACH PAIN Past Medical History - Past Medical History Cardiac Medical History: Reports: Hx Hypercholesterolemia Denies: Hx Coronary Artery Disease, Hx Heart Attack, Hx Hypertension Pulmonary Medical History: Reports: Hx Bronchitis Denies: Hx Asthma, Hx COPD, Hx Pneumonia Neurological Medical History: Denies: Hx Cerebrovascular Accident, Hx Seizures Endocrine Medical History: Reports: Hx Diabetes Mellitus Type 2, Hx Hypothyroidism Renal/ Medical History: Denies: Hx Peritoneal Dialysis GI Medical History: Reports: Hx Gastroesophageal Reflux Disease, Hx Pancreatitis - chronic Musculoskeltal Medical History: Denies Hx Arthritis Psychiatric Medical History: Denies: Hx Depression Past Surgical History: Reports: Hx Appendectomy, Hx Breast Surgery - biopsy x 3, Hx Cholecystectomy, Hx Hysterectomy - Immunizations Hx Diphtheria, Pertussis, Tetanus Vaccination: Yes Physical Exam - Vital signs Vitals: Temp Pulse Resp BP Pulse Ox 98.2 F 91 18 178/67 H 95 12/13/19 11:45 12/13/19 11:45 12/13/19 11:45 12/13/19 11:45 12/13/19 11:45 - Respiratory Respiratory status: No respiratory distress Chest status: Tender - Chest is diffusely tender with palpation, the chest pain is reproducible. Breath sounds: Rhonchi - Scattered rhonchi noted throughout all lung hensley. There is no wheezing. Patient does have a constant cough during examination. Chest palpation: Normal - Cardiovascular Rhythm: Regular Heart sounds: Normal auscultation, S1 appreciated, S2 appreciated Course - Re-evaluation Re-evalutation: 12/13/19 12:49 We will administer a DuoNeb, test for influenza, and obtain an EKG. Patient's chest pain is reproducible and diffuse throughout the chest. Patient was seen here 3 days ago for the same type of symptoms. Patient reports that the albuterol inhaler is not helping with her symptoms. I have greeted and performed a rapid initial assessment of this patient. A comprehensive ED assessment and evaluation of the patient, analysis of test results and completion of the medical decision making process will be conducted by additional ED providers. - Vital Signs Vital signs: Temp Pulse Resp BP Pulse Ox 98.2 F 91 18 178/67 H 95 12/13/19 11:45 12/13/19 11:45 12/13/19 11:45 12/13/19 11:45 12/13/19 11:45 Doctor's Discharge - Discharge Referrals: JONY JEAN-BAPTISTE MD [Primary Care Provider] - Follow up as needed
[2019-12-13 13:46] LABS: A TYPE INFLUENZA AG NEGATIVE (NEGATIVE); B INFLUENZA AG NEGATIVE (NEGATIVE)
[2019-12-13] MEDS ORDERED: DEXAMETHASONE SOD PHOS INJ 10 MG/1 ML VIAL IM ONE (14:13)
[2019-12-13] MEDS ORDERED: ALBUTEROL SULFATE 0.083% NEB 2.5 MG/3 ML AMPUL NEB ONE (14:13)
--- NOTE | 2019-12-13 14:17 | ER Document Report ---
ED Respiratory Problem - General Chief Complaint: Cough Stated Complaint: COGESTION/WHEEZING Time Seen by Provider: 12/13/19 12:32 Primary Care Provider: JONY JEAN-BAPTISTE MD [Primary Care Provider] - Follow up as needed Notes: CHIEF COMPLAINT: Shortness of breath HPI: 59-year-old female presenting to the emergency department for evaluation of continued shortness of breath. Patient states she was seen 3 days ago for wheezing and shortness of breath. Patient states that she did feel slightly better in the emergency department after several breathing treatments. Patient has not had fever. Patient states that she is only been using her inhaler twice daily. States that she is taking her prednisone. No fever. Reports chest pain with coughing only. ROS: See HPI - all other systems were reviewed and are otherwise negative Constitutional: no fever Eyes: no drainage, no blurred vision ENT: no runny nose, no sore throat Cardiovascular: + chest pain with cough Resp: + SOB, + cough GI: no vomiting, no diarrhea, no abdominal pain : no dysuria Integumentary: no rash Allergy: no hives Musculoskeletal: no extremity pain or swelling Neurological: no numbness/tingling, no weakness MEDICATIONS: I agree with the patient medications as charted by the RN. ALLERGIES: I agree with the allergies as charted by the RN. PAST MEDICAL HISTORY/PAST SURGICAL HISTORY: Reviewed and agree as charted by RN. SOCIAL HISTORY: Reviewed and agree as charted by RN. FAMILY HISTORY: No significant familial comorbid conditions directly related to patient complaint EXAM: Reviewed vital signs as charted by RN. CONSTITUTIONAL: Alert and oriented and responds appropriately to questions. Well-appearing; well-nourished, mild distress secondary to wheezing HEAD: Normocephalic; atraumatic EYES: PERRL; Conjunctivae clear, sclerae non-icteric ENT: normal nose; no rhinorrhea; moist mucous membranes; pharynx without lesions noted, no uvula edema or deviation, no tonsillar hypertrophy, phonation normal NECK: Supple without meningismus; non-tender; no cervical lymphadenopathy, no masses CARD: RRR; no murmurs, no clicks, no rubs, no gallops; symmetric distal pulses RESP: Normal chest excursion without splinting or tachypnea; breath sounds noted to have slight expiratory wheezing in the bilateral posterior lung bases, no rhonchi, no rales, pulse oximetry 95% on room air not hypoxic. Spastic cough noted ABD/GI: Normal bowel sounds; non-distended; soft, non-tender, no rebound, no guarding; no palpable organomegaly or masses. BACK: The back appears normal and is non-tender to palpation, there is no CVA tenderness EXT: Normal ROM in all joints; non-tender to palpation; no cyanosis, no effusions, no edema SKIN: Normal color for age and race; warm; dry; good turgor; no acute lesions noted NEURO: Moves all extremities equally; Motor and sensory function intact PSYCH: The patient's mood and manner are appropriate. Grooming and personal hygiene are appropriate. MDM: 59-year-old female presenting with continued shortness of breath over the last 3 to 4 days. [place] better after breathing treatments 3 days ago. Is only been using her inhaler twice daily which is likely why she still has wheezing. Will give additional steroids, continued neb here and reassess TRAVEL OUTSIDE OF THE [place] IN LAST 30 DAYS: No - Related Data Allergies/Adverse Reactions: Iodinated Contrast Media Allergy (Unknown, Verified 12/13/19 12:19) Hives aspirin [Aspirin] Allergy (Verified 12/13/19 12:19) STOMACH PAIN ibuprofen [From Motrin] Allergy (Verified 12/13/19 12:19) STOMACH PAIN iodine [Iodine] Allergy (Verified 12/13/19 12:19) Hives morphine [Morphine] Allergy (Verified 12/13/19 12:19) Generalized Itching meloxicam [From Mobic] Adverse Reaction (Verified 12/13/19 12:19) STOMACH PAIN Past Medical History - Social History Smoking Status: Current Every Day Smoker Family History: Reviewed & Not Pertinent, CAD Patient has suicidal ideation: No Patient has homicidal ideation: No - Past Medical History Cardiac Medical History: Reports: Hx Hypercholesterolemia Denies: Hx Coronary Artery Disease, Hx Heart Attack, Hx Hypertension Pulmonary Medical History: Reports: Hx Bronchitis Denies: Hx Asthma, Hx COPD, Hx Pneumonia Neurological Medical History: Denies: Hx Cerebrovascular Accident, Hx Seizures Endocrine Medical History: Reports: Hx Diabetes Mellitus Type 2, Hx Hypothyroidism Renal/ Medical History: Denies: Hx Peritoneal Dialysis GI Medical History: Reports: Hx Gastroesophageal Reflux Disease, Hx Pancreatitis - chronic Musculoskeletal Medical History: Denies Hx Arthritis Psychiatric Medical History: Denies: Hx Depression Past Surgical History: Reports: Hx Appendectomy, Hx Breast Surgery - biopsy x 3, Hx Cholecystectomy, Hx Hysterectomy - Immunizations Hx Diphtheria, Pertussis, Tetanus Vaccination: Yes Physical Exam - Vital signs Vitals: Temp Pulse Resp BP Pulse Ox 98.2 F 91 18 178/67 H 95 12/13/19 11:45 12/13/19 11:45 12/13/19 11:45 12/13/19 11:45 12/13/19 11:45 Course - Re-evaluation Re-evalutation: 12/13/19 17:15 Patient lung sounds are improved, no wheezing now after breathing treatment. Patient states she feels much better. Pulse oximetry 96% on room air not hypoxic. She needs me to write her for another inhaler with a spacer. She does have steroids 40 mg daily to continue for the next 4 to 5 days. She will follow-up with her PCP in the next 2 to 3 days for recheck return if symptoms worsen - Vital Signs Vital signs: Temp Pulse Resp BP Pulse Ox 97.9 F 69 20 172/63 H 99 12/13/19 15:53 12/13/19 15:53 12/13/19 15:53 12/13/19 15:53 12/13/19 15:53 Discharge - Discharge Clinical Impression: Asthma exacerbation Condition: Stable Disposition: HOME, SELF-CARE Instructions: Pediatric Asthma ([facility], [facility]) Additional Instructions: 1. take the medications as prescribed, if you were prescribed a cough medicine, no driving on narcotics 2. if you were prescribed an Albuterol inhaler, use it as instructed, 2 puffs every 4 hours as needed for cough/wheezing 3. call your primary care provider as soon as possible to schedule recheck appt. in the office. 4. return to the ED for any worsening condition, shortness of breath or continued fever that does not resolve with Motrin/Tylenol Prescriptions: Guaifenesin/Codeine Phos [Robitussin-AC Syrup 59 ml] 10 ml PO QHS PRN #100 ml PRN Reason: Albuterol Sulfate [Proair HFA Inhalation Aerosol 8.5 gm MDI] 2 puff IH Q4H PRN #1 mdi PRN Reason: Referrals: JONY JEAN-BAPTISTE MD [Primary Care Provider] - Follow up as needed
--- NOTE | 2019-12-13 16:05 | EKG REPORT ---
SEVERITY:- ABNORMAL ECG - SINUS RHYTHM LVH WITH SECONDARY REPOLARIZATION ABNORMALITY : Confirmed by: Sheldon Huff MD 13-Dec-2019 16:04:43
[2019-12-13 17:28] VITALS: BP 178/63
== END 2019-12-13 17:32 | disposition home or self-care (01) ==
LOC: ER 11:20
DX: J45.901 Unspecified asthma with (acute) exacerbation (principal); R06.02 Shortness of breath; R07.9 Chest pain, unspecified; F17.200 Nicotine dependence, unspecified, uncomplicated; E11.9 Type 2 diabetes mellitus without complications; Z91.041 Radiographic dye allergy status; Z88.8 Allergy status to other drugs, medicaments and biological substances; Z88.6 Allergy status to analgesic agent; Z88.5 Allergy status to narcotic agent
CPT/HCPCS: 93005; 94640 ×2; 99285; 96372; 87804; 93010; J1100; J7620

== ENCOUNTER → 2020-01-05 | Outpatient (CLI) | payer BC ==
--- NOTE | 2020-01-05 17:14 | RADIOLOGY REPORT (SQ) ---
EXAM DESCRIPTION: CHEST PA/LATERAL COMPLETED DATE/TIME: 01/05/2020 4:49 pm REASON FOR STUDY: COUGH COMPARISON: 12/10/2019 EXAM PARAMETERS: NUMBER OF VIEWS: two views TECHNIQUE: Digital Frontal and Lateral radiographic views of the chest acquired. RADIATION DOSE: NA LIMITATIONS: none FINDINGS: LUNGS AND PLEURA: No opacities, masses or pneumothorax. No pleural effusion. MEDIASTINUM AND HILAR STRUCTURES: No masses or contour abnormalities. HEART AND VASCULAR STRUCTURES: Heart size is borderline. There is no pulmonary edema. BONES: No acute findings. HARDWARE: None in the chest. OTHER: No other significant finding. IMPRESSION: Borderline cardiomegaly without pulmonary edema. TECHNICAL DOCUMENTATION: JOB ID: [id number] 2010 [employer]- All Rights Reserved Reading location - IP/workstation name: [email or web address]
== END ==
LOC: RAD 16:31
PROVIDERS: ATTEND Family Medicine
DX: R05 Cough (principal)
CPT/HCPCS: 71046

== ENCOUNTER 2020-06-14 23:03 | Emergency (ER) | payer BC ==
[2020-06-14 23:14] VITALS: BP 155/74
[2020-06-14] MEDS ORDERED: LIDOCAINE 2% VISCOUS SOLN 15 ML UDCUP PO ONE (23:35)
--- NOTE | 2020-06-14 23:39 | ER Document Report ---
ED ENT - General Chief Complaint: Ear Pain Stated Complaint: EAR PAIN Time Seen by Provider: 06/14/20 23:29 Primary Care Provider: JONY JEAN-BAPTISTE MD [Primary Care Provider] - Follow up as needed ARIN LIND MD [ACTIVE STAFF] - Follow up tomorrow Mode of Arrival: Ambulatory Information source: Patient Notes: 60-year-old female presented to ED for complaint of right ear pain since 5 AM. She states she has had pain in this area multiple times before and she had some eardrops and she placed them into her ear 3 times a day with no relief and then she went to the store and bought some [id number] eardrops and still has had no relief. She states she is had pain in his ear multiple times before. TRAVEL OUTSIDE OF THE [place] IN LAST 30 DAYS: No - HPI Patient complains to provider of: Ear problem Onset: This morning Onset/Duration: Intermittent Quality of pain: Stabbing Severity: Severe Pain Level: 5 Location of pain: Ears Associated symptoms: Ear pain Similar symptoms previously: Yes Recently seen / treated by doctor: No - Related Data Allergies/Adverse Reactions: Iodinated Contrast Media Allergy (Unknown, Verified 12/13/19 12:19) Hives aspirin [Aspirin] Allergy (Verified 12/13/19 12:19) STOMACH PAIN ibuprofen [From Motrin] Allergy (Verified 12/13/19 12:19) STOMACH PAIN iodine [Iodine] Allergy (Verified 12/13/19 12:19) Hives morphine [Morphine] Allergy (Verified 12/13/19 12:19) Generalized Itching meloxicam [From Mobic] Adverse Reaction (Verified 12/13/19 12:19) STOMACH PAIN Past Medical History - General Information source: Patient - Social History Smoking Status: Current Every Day Smoker Cigarette use (# per day): Yes - Half pack per day Smoking Education Provided: Yes - 3 minutes Frequency of alcohol use: Occasional Drug Abuse: None Family History: Reviewed & Not Pertinent, CAD Patient has suicidal ideation: No Patient has homicidal ideation: No - Past Medical History Cardiac Medical History: Reports: Hx Hypercholesterolemia Pulmonary Medical History: Reports: Hx Bronchitis EENT Medical History: Reports: None Neurological Medical History: Reports: None Endocrine Medical History: Reports: Hx Diabetes Mellitus Type 2, Hx Hypothyroidism Renal/ Medical History: Reports: None Malignancy Medical History: Reports: None GI Medical History: Reports: Hx Gastroesophageal Reflux Disease, Hx Pancreatitis - chronic Musculoskeletal Medical History: Reports None, Reports Hx Arthritis Skin Medical History: Reports None Psychiatric Medical History: Reports: None Traumatic Medical History: Reports: None Infectious Medical History: Reports: None Past Surgical History: Reports: Hx Appendectomy, Hx Breast Surgery - biopsy x 3, Hx Cholecystectomy, Hx Hysterectomy - Immunizations Hx Diphtheria, Pertussis, Tetanus Vaccination: Yes Review of Systems - Review of Systems Constitutional: No symptoms reported EENT: Ear pain Cardiovascular: No symptoms reported Respiratory: No symptoms reported Gastrointestinal: No symptoms reported Genitourinary: No symptoms reported Female Genitourinary: No symptoms reported Musculoskeletal: No symptoms reported Skin: No symptoms reported Hematologic/Lymphatic: No symptoms reported Neurological/Psychological: No symptoms reported Physical Exam - Vital signs Vitals: Temp Pulse Resp BP Pulse Ox 98.2 F 77 18 155/74 H 97 06/14/20 23:13 06/14/20 23:13 06/14/20 23:13 06/14/20 23:13 06/14/20 23:13 Interpretation: Normal - General General appearance: Appears well, Alert - HEENT Head: Normocephalic, Atraumatic Eyes: Normal Pupils: PERRL Ears: Normal External canal: Normal Tympanic membrane: Other - Swelling redness to the tympanic membrane but no redness no bulging no drainage. No: Injected, Loss of landmarks, Purulent effusion, Serous effusion Sinus: Normal Nasal: Normal Mouth/Lips: Normal Mucous membranes: Normal Pharynx: Normal Neck: Normal - Respiratory Respiratory status: No respiratory distress Chest status: Nontender Breath sounds: Normal Chest palpation: Normal - Cardiovascular Rhythm: Regular Heart sounds: Normal auscultation Murmur: No - Abdominal Inspection: Normal Distension: No distension Bowel sounds: Normal Tenderness: Nontender Organomegaly: No organomegaly - Back Back: Normal, Nontender - Extremities General upper extremity: Normal inspection, Nontender, Normal color, Normal ROM, Normal temperature General lower extremity: Normal inspection, Nontender, Normal color, Normal ROM, Normal temperature, Normal weight bearing. No: Ron's sign - Neurological Neuro grossly intact: Yes Cognition: Normal Orientation: AAOx4 Dante Coma Scale Eye Opening: Spontaneous Karen Coma Scale Verbal: Oriented Dante Coma Scale Motor: Obeys Commands Dante Coma Scale Total: 15 Speech: Normal Motor strength normal: LUE, RUE, LLE, RLE Sensory: Normal - Psychological Associated symptoms: Normal affect, Normal mood - Skin Skin Temperature: Warm Skin Moisture: Dry Skin Color: Normal Course - Vital Signs Vital signs: Temp Pulse Resp BP Pulse Ox 98.2 F 77 18 155/74 H 97 06/14/20 23:13 06/14/20 23:13 06/14/20 23:13 06/14/20 23:13 06/14/20 23:13 Discharge - Discharge Clinical Impression: Chronic right ear pain Condition: Stable Disposition: HOME, SELF-CARE Additional Instructions: You have chronic pain to your right ear. You have been given eardrops that are antibiotic and steroid by your primary care. Please use those 4 drops into the right ear no more than twice a day. I have given you a syringe of lidocaine. Please place a small amount of the lidocaine in your right ear lay on your left side let that dropped down into the ear canal. Please do not use this more than twice a day. Acetaminophen Acetaminophen may be taken for pain relief or fever control. It's much safer than aspirin, offering a wider range of "safe" dosages. It is safe during . Some brand names are Tylenol, Panadol, Datril, Anacin 3, Tempra, and Liquiprin. Acetaminophen can be repeated every four hours. The following are maximum recommended dosages: WEIGHT Dose Drops Elixir Chewable(80mg) (LBS.) drprs=droppers tsp=teaspoon 6 40 mg .4 ml (1/2) 6-11 80 mg .8 ml (full) 1/2 tsp 1 tab 12-16 120 mg 1 1/2 drprs 3/4 tsp 1 1/2 tabs 17-23 160 mg 2 drprs 1 tsp 2 tabs 24-30 240 mg 3 drprs 1 1/2 tsp 3 tabs 30-35 320 mg 2 tsp 4 tabs 36-41 360 mg 2 1/4 tsp 4 1/2 tabs 42-47 400 mg 2 1/2 tsp 5 tabs 48-53 480 mg 3 tsp 6 tabs 54-59 520 mg 3 1/4 tsp 6 1/2 tabs 60-64 560 mg 3 1/2 tsp 7 tabs 65-70 600 mg 3 3/4 tsp 7 1/2 tabs 71-76 640 mg 4 tsp 8 tabs 77-82 720 mg 4 1/2 tsp 9 tabs 83-88 800 mg 5 tsp 10 tabs >89 pounds or adults 650 mg to 900 mg Acetaminophen can be repeated every four hours. Maximum daily dose not to exceed 4000 mg. These maximum recommended dosages are slightly higher than the dosages written on the product container, but these dosages are very safe and well below the toxic dosage for acetaminophen. FOLLOW-UP CARE: If you have been referred to a physician for follow-up care, call the physicians office for an appointment as you were instructed or within the next two days. If you experience worsening or a significant change in your symptoms, notify the physician immediately or return to the Emergency Department at any time for re-evaluation. Forms: Elevated Blood Pressure, Smoking Cessation Education Referrals: JONY JEAN-BAPTISTE MD [Primary Care Provider] - Follow up as needed ARIN LIND MD [ACTIVE STAFF] - Follow up tomorrow
== END 2020-06-14 23:43 | disposition home or self-care (01) ==
LOC: ER 23:03
DX: G89.29 Other chronic pain (principal); H92.01 Otalgia, right ear; F17.210 Nicotine dependence, cigarettes, uncomplicated; E78.00 Pure hypercholesterolemia, unspecified; E11.9 Type 2 diabetes mellitus without complications; E03.9 Hypothyroidism, unspecified; Z88.6 Allergy status to analgesic agent
CPT/HCPCS: 99406; 99282; J3490

== ENCOUNTER 2020-07-03 08:10 | Emergency (ER) | payer BC ==
[2020-07-03] MEDS ORDERED: CEFTRIAXONE INJ 1000 MG VIAL IM ONE (09:12)
[2020-07-03 09:25] VITALS: BP 165/71
--- NOTE | 2020-07-03 10:11 | ER Document Report ---
Entered by MARYANN SIMON SCRIBE 07/03/20 0908 Acting as scribe for:TRANG WELCH MD ED Oral Problem - General Chief Complaint: Mouth Problem Stated Complaint: MOUTH PAIN Time Seen by Provider: 07/03/20 08:51 Primary Care Provider: PILAR JEFFERS MD [Primary Care Provider] - Follow up as needed Information source: Patient Notes: This 60 year old female patient presents to the emergency department today with constant mouth pain from x1 left bottom tooth and x2 left top teeth. Patient states she visited her Dentist x5 days ago and was prescribed Penicillin, which she has been taking, and has a scheduled appointment in x3 days with another Dentist. Patient states she has used x2 tubes of Orajel without relief, and already takes Percocet for her pain management. Denies any fever or chills. TRAVEL OUTSIDE OF THE [place] IN LAST 30 DAYS: No - Related Data Allergies/Adverse Reactions: Iodinated Contrast Media Allergy (Unknown, Verified 07/03/20 08:17) Hives aspirin [Aspirin] Allergy (Verified 07/03/20 08:17) STOMACH PAIN ibuprofen [From Motrin] Allergy (Verified 07/03/20 08:17) STOMACH PAIN iodine [Iodine] Allergy (Verified 07/03/20 08:17) Hives morphine [Morphine] Allergy (Verified 07/03/20 08:17) Generalized Itching meloxicam [From Mobic] Adverse Reaction (Verified 07/03/20 08:17) STOMACH PAIN Home Medications: penicillin. percocet. Past Medical History - General Information source: Patient - Social History Smoking Status: Never Smoker Cigarette use (# per day): No Chew tobacco use (# tins/day): No Frequency of alcohol use: None Drug Abuse: None Family History: Reviewed & Not Pertinent, CAD Patient has homicidal ideation: No - Past Medical History Cardiac Medical History: Reports: Hx Hypercholesterolemia Pulmonary Medical History: Reports: Hx Bronchitis Endocrine Medical History: Reports: Hx Diabetes Mellitus Type 2, Hx Hypothyroidism GI Medical History: Reports: Hx Gastroesophageal Reflux Disease, Hx Pancreatitis - chronic Musculoskeletal Medical History: Reports Hx Arthritis Past Surgical History: Reports: Hx Appendectomy, Hx Breast Surgery - biopsy x 3, Hx Cholecystectomy, Hx Hysterectomy - Immunizations Hx Diphtheria, Pertussis, Tetanus Vaccination: Yes Review of Systems - Review of Systems Constitutional: See HPI. denies: Chills, Fever EENT: See HPI, Mouth pain - L, Dental problem - L top/bottom Cardiovascular: No symptoms reported Respiratory: No symptoms reported Gastrointestinal: No symptoms reported Genitourinary: No symptoms reported Female Genitourinary: No symptoms reported Musculoskeletal: No symptoms reported Skin: No symptoms reported Hematologic/Lymphatic: No symptoms reported Neurological/Psychological: No symptoms reported -: Yes All other systems reviewed and negative Physical Exam - Vital signs Vitals: Temp Pulse Resp BP Pulse Ox 98.2 F 95 16 173/79 H 97 07/03/20 08:16 07/03/20 08:16 07/03/20 08:16 07/03/20 08:16 07/03/20 08:16 - General General appearance: Alert, Other - Crying - HEENT Head: Normocephalic, Atraumatic Eyes: Normal Pupils: PERRL Notes: No facial or jaw swelling. Neck is supple. Carious teeth in the molar region of the left upper and lower dental plates. - Respiratory Respiratory status: No respiratory distress Chest status: Nontender Breath sounds: Normal Chest palpation: Normal - Cardiovascular Rhythm: Regular Heart sounds: Normal auscultation, S1 appreciated, S2 appreciated Murmur: No - Abdominal Inspection: Normal, Obese Distension: No distension Bowel sounds: Normal Tenderness: Nontender - Extremities General upper extremity: Normal inspection. No: Edema General lower extremity: Normal inspection. No: Edema - Neurological Neuro grossly intact: Yes Cognition: Normal Orientation: AAOx4 Speech: Normal - Psychological Associated symptoms: Normal affect, Normal mood - Skin Skin Temperature: Warm Skin Moisture: Dry Skin Color: Normal Course - Re-evaluation Re-evalutation: 07/03/20 09:49 Patient resting comfortably at this time. - Vital Signs Vital signs: Temp Pulse Resp BP Pulse Ox 98.2 F 85 20 165/71 H 92 07/03/20 08:17 07/03/20 09:23 07/03/20 09:23 07/03/20 09:23 07/03/20 09:23 07/03/20 09:49 Vital signs stable Discharge - Discharge Clinical Impression: Infected dental carries Condition: Stable Disposition: HOME, SELF-CARE Additional Instructions: Toothache Your pain is due to dental decay. The tooth must be repaired in order for you to feel better. You will, therefore, be referred to a dentist. Severe swelling or drainage around a tooth usually means a deep dental abscess. This also requires evaluation and treatment by the dentist, but antibiotics may be prescribed while awaiting dental treatment. You should be rechecked immediately if you develop major swelling of the face, increasing pain, a lump in the jaw or gums, headache, or fever. Follow-up with your dentist as you have an appointment on Saturday this week. I will be adding a prescription for lidocaine gel for you to apply to your dental caries pain. Continue your antibiotics. Prescriptions: Lidocaine HCl [Lidorx] 3 ml TP QID PRN 7 Days #30 gel.w.pump PRN Reason: Referrals: PILAR JEFFERS MD [Primary Care Provider] - Follow up as needed I personally performed the services described in the documentation, reviewed and edited the documentation which was dictated to the scribe in my presence, and it accurately records my words and actions.
== END 2020-07-03 10:21 | disposition home or self-care (01) ==
LOC: ER 08:10
DX: K04.7 Periapical abscess without sinus (principal); K02.9 Dental caries, unspecified; K08.89 Other specified disorders of teeth and supporting structures; Z79.899 Other long term (current) drug therapy; Z88.8 Allergy status to other drugs, medicaments and biological substances; E11.9 Type 2 diabetes mellitus without complications
CPT/HCPCS: 99284; 96372; J0696

== ENCOUNTER 2020-08-15 08:27 | Emergency (ER) | payer BC ==
[2020-08-15] MEDS ORDERED: NORMAL SALINE 1000 ML 1,000 ML IV ONE (10:10)
[2020-08-15] MEDS ORDERED: ONDANSETRON HCL INJ/PF 4 MG/2 ML SDV IV ONE (10:10)
[2020-08-15] MEDS ORDERED: HYDROMORPHONE HCL INJ/PF 2 MG/ML AMPULE IV ONE (10:12)
[2020-08-15 10:21] LABS: ABSOLUTE BASOPHILS # (AUTO) 0.1 10^3/uL (0.0-0.2); ABSOLUTE EOSINOPHILS # (AUTO) 0.1 10^3/uL (0.0-0.6); ABSOLUTE LYMPHOCYTES (AUTO) 2.8 10^3/uL (0.5-4.7); ABSOLUTE MONOCYTES (AUTO) 0.5 10^3/uL (0.1-1.4); ABSOLUTE NEUT (AUTO) 2.5 10^3/uL (1.7-8.2); EOSINOPHILS % (AUTO) 1.5 % (0-6); HEMATOCRIT 44.2 % (36.0-47.0); HEMOGLOBIN 14.9 g/dL (12.0-15.5); LYMPHOCYTES % (AUTO) 46.8 % (13-45); MEAN CORPUSCULAR HGB CONC 33.7 g/dL (32.0-36.0); MEAN CORPUSCULAR VOLUME 83 fl (80-97); MONOCYTES % (AUTO) 8.4 % (3-13); PLATELET COUNT 424 10^3/uL (150-450); RED BLOOD COUNT 5.33 10^6/uL (3.72-5.28); RED CELL DISTRIBUTION WIDTH 15.4 % (11.5-14.0); SEGMENTED NEUTROPHILS % (AUTO) 42.3 % (42-78); TOTAL CELLS COUNTED % (AUTO) 100 %
[2020-08-15 10:32] LABS: APPEARANCE,URINE CLOUDY; BILIRUBIN,URINE NEGATIVE (NEGATIVE); COLOR,URINE AMBER; GLUCOSE, URINE NEGATIVE (NEGATIVE); KETONES,URINE NEGATIVE (NEGATIVE); LEUKOCYTE ESTERASE,URINE NEGATIVE (NEGATIVE); NITRITE,URINE NEGATIVE (NEGATIVE); PROTEIN,URINE 30 mg/dL (NEGATIVE); URINE SPECIFIC GRAVITY 1.028
[2020-08-15 10:45] LABS: ALBUMIN 4.3 g/dL (3.5-5.0); ALKALINE PHOSPHATASE 149 U/L (38-126); ANION GAP 10 (5-19); ASPARTATE AMINO TRANSFERASE 29 U/L (14-36); BILIRUBIN,DIRECT 0.3 mg/dL (0.0-0.4); BILIRUBIN,TOTAL 0.5 mg/dL (0.2-1.3); BLOOD UREA NITROGEN 18 mg/dL (7-20); CALCIUM 10.7 mg/dL (8.4-10.2); CARBON DIOXIDE 22 mmol/L (22-30); CHLORIDE 107 mmol/L (98-107); GLUCOSE 147 mg/dL (75-110); POTASSIUM 4.8 mmol/L (3.6-5.0); TOTAL PROTEIN 7.5 g/dL (6.3-8.2)
--- NOTE | 2020-08-15 10:48 | ER Document Report ---
Entered by CELENA FALL SCRIBE 08/15/20 1011 Acting as scribe for:MARSHA ARELLANO MD ED GI/ - General Chief Complaint: Abdominal Pain Stated Complaint: ABDOMINAL PAIN,NAUSEA,VOMITING Time Seen by Provider: 08/15/20 09:53 Information source: Patient Notes: This 60 year old female patient presents to the emergency department today with complaints of upper abdominal pain, calling it a pancreatitis flare. Patient states her last flare was about 2 years ago. She has had associated nausea, vomiting, and diarrhea which is normal for her pancreatitis. She is on oxycodone 7.5 mg 5 times a day for sciatica. On July 14 she started on clindamycin, on July 27 she was prescribed amoxicillin which she cannot take, and she was then prescribed Keflex, all these were for dental infections. She denies a fever or cough. TRAVEL OUTSIDE OF THE [place] IN LAST 30 DAYS: No - Related Data Allergies/Adverse Reactions: Iodinated Contrast Media Allergy (Unknown, Verified 08/15/20 08:53) Hives aspirin [Aspirin] Allergy (Verified 08/15/20 08:53) STOMACH PAIN ibuprofen [From Motrin] Allergy (Verified 08/15/20 08:53) STOMACH PAIN iodine [Iodine] Allergy (Verified 08/15/20 08:53) Hives morphine [Morphine] Allergy (Verified 08/15/20 08:53) Generalized Itching meloxicam [From Mobic] Adverse Reaction (Verified 08/15/20 08:53) STOMACH PAIN Home Medications: ATB - KEFLEX. PROTONIX Past Medical History - General Information source: Patient - Social History Smoking Status: Current Every Day Smoker Cigarette use (# per day): Yes - 1/3 ppd Chew tobacco use (# tins/day): No Frequency of alcohol use: Occasional Drug Abuse: None Lives with: Family Family History: Reviewed & Not Pertinent, CAD Patient has homicidal ideation: No - Past Medical History Cardiac Medical History: Reports: Hx Hypercholesterolemia Pulmonary Medical History: Reports: Hx Bronchitis Endocrine Medical History: Reports: Hx Diabetes Mellitus Type 2, Hx Hypothyroidism GI Medical History: Reports: Hx Gastroesophageal Reflux Disease, Hx Pancreatitis - chronic Musculoskeletal Medical History: Reports Hx Arthritis Surgical Hx: Negative Past Surgical History: Reports: Hx Appendectomy, Hx Breast Surgery - biopsy x 3, Hx Cholecystectomy, Hx Hysterectomy - Immunizations Hx Diphtheria, Pertussis, Tetanus Vaccination: Yes Review of Systems - Review of Systems Constitutional: No symptoms reported EENT: No symptoms reported Cardiovascular: No symptoms reported Respiratory: No symptoms reported Gastrointestinal: See HPI, Abdominal pain, Diarrhea, Nausea, Vomiting Genitourinary: No symptoms reported Female Genitourinary: No symptoms reported Musculoskeletal: No symptoms reported Skin: No symptoms reported Hematologic/Lymphatic: No symptoms reported Neurological/Psychological: No symptoms reported -: Yes All other systems reviewed and negative Physical Exam - Vital signs Vitals: Temp Pulse Resp BP Pulse Ox 98.2 F 78 20 147/67 H 96 08/15/20 08:51 08/15/20 08:51 08/15/20 08:51 08/15/20 08:51 08/15/20 08:51 - Notes Notes: Physical Exam: General: Alert, appears uncomfortable. HEENT: Normocephalic. Atraumatic. PERRL. Extraocular movements intact. Oropharynx clear. Neck: Supple. Non-tender. Respiratory: No respiratory distress. Clear and equal breath sounds bilaterally. Cardiovascular: Regular rate and rhythm. Abdominal: Obese, epigastric tenderness to palpation. No distension. Normal Bowel Sounds. Back: No gross abnormalities. Extremities: Moves all four extremities. Upper extremities: Normal inspection. Normal ROM. Lower extremities: Normal inspection. No edema. Normal ROM. Neurological: Normal cognition. AAOx4. Normal speech. Psychological: Normal affect. Normal Mood. Skin: Warm. Dry. Normal color. Course - Re-evaluation Re-evalutation: 08/15/20 13:42 The patient was evaluated during the global COVID-19 pandemic and that diagnosis was suspected/considered upon their initial presentation. Their evaluation, treatment and testing was consistent with current guidelines for patients who present with complaints or symptoms that may be related to COVID-19. The patient's lab work does not suggest pancreatitis. The patient got some relief to her epigastric discomfort with a GI cocktail making this most likely reflux or heartburn discomfort. - Vital Signs Vital signs: Temp Pulse Resp BP Pulse Ox 97.8 F 78 20 147/67 H 96 08/15/20 08:53 08/15/20 08:51 08/15/20 08:51 08/15/20 08:51 08/15/20 08:51 - Laboratory Result Diagrams: 08/15/20 09:36 08/15/20 09:36 Laboratory results interpreted by me: 08/15/20 08/15/20 08/15/20 09:36 09:36 09:36 RBC 5.33 H RDW 15.4 H Lymph % (Auto) 46.8 H Glucose 147 H Calcium 10.7 H Alkaline Phosphatase 149 H Urine Protein 30 H Urine Urobilinogen 2.0 H Discharge - Discharge Clinical Impression: GERD (gastroesophageal reflux disease) Qualifiers: Esophagitis presence: esophagitis presence not specified Qualified Code(s): K21.9 - Gastro-esophageal reflux disease without esophagitis Abdominal pain Qualifiers: Abdominal location: epigastric Qualified Code(s): R10.13 - Epigastric pain Condition: Stable Disposition: HOME, SELF-CARE Additional Instructions: Reflux Disease (GERD) Gastro-Esophageal Reflux Disease (GERD) is caused by stomach acid refluxing back up into the esophagus. The valve at the end of the esophagus may be weak. This is common in persons with a hiatal hernia. GERD symptoms can include indigestion, chest pain, heartburn, or food "sticking." Certain foods, alcohol, and aspirin can make GERD worse. Treatment depends on the severity. Usually, antacids or acid-suppressing medicines are used. When the esophagus is acutely inflamed, the physician will often prescribe membrane-protective drugs such as Carafate. Some patients benefit from medication such as Reglan that tightens the valve at the top of the stomach. Avoid those foods that bring on your symptoms. For many people, these foods are coffee, chocolate, onions, garlic, and carbonated drinks. Don't use alcohol, aspirin, caffeine, or tobacco. Don't eat late at night -- within 4 hours of bedtime. Don't over-eat. If necessary, elevate the head of your bed about 4 inches so that stomach acid will not roll up into your esophagus. Call the doctor if you develop severe chest pain, inability to swallow fluids, fever, or worsening symptoms. Eat a bland diet, and follow the recommendations listed above. Take Prilosec OTC once daily for the next 2 to 3 weeks. Take antacids between meals and at bedtime for the next 1 to 2 weeks. Follow-up with your primary care provider if not improving. RETURN TO THE EMERGENCY ROOM IF ANY NEW OR WORSENING SYMPTOMS. I personally performed the services described in the documentation, reviewed and edited the documentation which was dictated to the scribe in my presence, and it accurately records my words and actions.
[2020-08-15] MEDS ORDERED: MAG HYDROX/AL HYDROX/SIMETH SUSP 30 ML UDCUP PO ONE ×2 (11:54→13:43)
[2020-08-15] MEDS ORDERED: LIDOCAINE 2% VISCOUS SOLN 15 ML UDCUP PO ONE ×2 (11:54→13:43)
[2020-08-15 14:13] VITALS: BP 130/55
== END 2020-08-15 14:13 | disposition home or self-care (01) ==
LOC: ER 08:27
DX: K21.9 Gastro-esophageal reflux disease without esophagitis (principal); R10.13 Epigastric pain; R11.2 Nausea with vomiting, unspecified; R19.7 Diarrhea, unspecified; M54.30 Sciatica, unspecified side; F17.210 Nicotine dependence, cigarettes, uncomplicated; Z20.828 Contact with and (suspected) exposure to other viral communicable diseases; E78.00 Pure hypercholesterolemia, unspecified; E11.9 Type 2 diabetes mellitus without complications; Z79.891 Long term (current) use of opiate analgesic
CPT/HCPCS: 99284; 96361; 96374; 96375; 36415; 82962; 83690; 83735; 85025; 80053; 81001; J3490; J1170; J2405; J7030

== ENCOUNTER → 2020-08-19 | Outpatient (CLI) | payer BC ==
[2020-08-19 11:28] LABS: ALBUMIN 4.7 g/dL (3.5-5.0); ALKALINE PHOSPHATASE 128 U/L (38-126); ANION GAP 13 (5-19); ASPARTATE AMINO TRANSFERASE 35 U/L (14-36); BILIRUBIN,DIRECT 0.5 mg/dL (0.0-0.4); BILIRUBIN,TOTAL 0.6 mg/dL (0.2-1.3); BLOOD UREA NITROGEN 13 mg/dL (7-20); CALCIUM 10.9 mg/dL (8.4-10.2); CARBON DIOXIDE 22 mmol/L (22-30); CHLORIDE 109 mmol/L (98-107); CHOLESTEROL 225.33 mg/dL (0-200); GLUCOSE 129 mg/dL (75-110); POTASSIUM 5.3 mmol/L (3.6-5.0); TRIGLYCERIDES 219 mg/dL (<150)
[2020-08-19 11:39] LABS: DIRECT LDL 137 mg/dL (<100)
[2020-08-19 11:40] LABS: VLDL CHOLESTEROL 43.8 mg/dL (10-31)
[2020-08-20 18:36] LABS: CREATININE URINE 154.1 mg/dL (Not Estab.); MICROALBUMIN URINE 7.4 ug/mL (Not Estab.)
== END ==
LOC: OD 08:41
PROVIDERS: ATTEND Family Medicine
DX: I10 Essential (primary) hypertension (principal); E11.9 Type 2 diabetes mellitus without complications; E03.9 Hypothyroidism, unspecified; E78.5 Hyperlipidemia, unspecified
CPT/HCPCS: 36415; 80053; 80061; 82043; 82570; 83036; 84443

== ENCOUNTER 2020-08-28 13:54 | Emergency (ER) | payer BC ==
[2020-08-28 14:14] VITALS: BP 129/60
[2020-08-28] MEDS ORDERED: HYDROCODONE/ACETAMINOPHEN 5-325 MG TABLET PO ONE (14:52)
--- NOTE | 2020-08-28 15:36 | RADIOLOGY REPORT (SQ) ---
EXAM DESCRIPTION: ANKLE BILATERAL 3 VIEWS MIN IMAGES COMPLETED DATE/TIME: 08/28/2020 3:12 pm REASON FOR STUDY: injury COMPARISON: None. EXAM PARAMETERS: NUMBER OF VIEWS: Six views. TECHNIQUE: AP, lateral and oblique radiographic images acquired of the right and left ankle. LIMITATIONS: None. FINDINGS: MINERALIZATION: Normal. BONES: No acute fracture or dislocation. No worrisome bone lesions. 5 mm plantar calcaneal spurs bi laterally. JOINTS: No effusion. SOFT TISSUES: No significant soft tissue swelling. No radiopaque foreign body. OTHER: No other significant finding. IMPRESSION: NO FRACTURE. TECHNICAL DOCUMENTATION: JOB ID: [id number] [id number] ([employer])- All Rights Reserved Reading location - IP/workstation name: [email or web address]
--- NOTE | 2020-08-28 16:08 | ER Document Report ---
HPI - HPI Patient complains to provider of: ankle pain Time Seen by Provider: 08/28/20 14:49 Context: 60-year-old female with a past medical history significant for hyperlipidemia, sciatica, reflux, ulcers, pancreatitis presents to the emergency room complaining of bilateral ankle pain. Patient states she was walking in the kitchen when she lost her balance falling and injuring both ankles. States she has a history of a previous right ankle fracture. Patient is on chronic Percocet for chronic pain but states she did not take any prior to arrival. States is able to walk but is painful. Associated Symptoms: None Exacerbated by: Movement, Walking Relieved by: Denies Similar symptoms previously: No Recently seen / treated by doctor: No - ROS Systems Reviewed and Negative: Yes All other systems reviewed and negative - NEURO Neurology: DENIES: Weakness - REPRODUCTIVE Reproductive: DENIES: : - MUSCULOSKELETAL Musculoskeletal: REPORTS: Extremity pain - DERM Skin Color: Normal Skin Problems: None Past Medical History - General Information source: Patient - Social History Smoking Status: Current Every Day Smoker Frequency of alcohol use: None Drug Abuse: None Family History: Reviewed & Not Pertinent, CAD - Past Medical History Cardiac Medical History: Reports: Hx Hypercholesterolemia Denies: Hx Coronary Artery Disease, Hx Heart Attack, Hx Hypertension Pulmonary Medical History: Reports: Hx Bronchitis Denies: Hx Asthma, Hx COPD, Hx Pneumonia Neurological Medical History: Denies: Hx Cerebrovascular Accident, Hx Seizures Endocrine Medical History: Reports: Hx Diabetes Mellitus Type 2, Hx Hypothyroidism Renal/ Medical History: Denies: Hx Peritoneal Dialysis GI Medical History: Reports: Hx Gastroesophageal Reflux Disease, Hx Pancreatitis - chronic Musculoskeletal Medical History: Reports Hx Arthritis Psychiatric Medical History: Denies: Hx Depression Past Surgical History: Reports: Hx Appendectomy, Hx Breast Surgery - biopsy x 3, Hx Cholecystectomy, Hx Hysterectomy - Immunizations Hx Diphtheria, Pertussis, Tetanus Vaccination: Yes Vertical Provider Document - CONSTITUTIONAL Agree With Documented VS: Yes Exam Limitations: No Limitations General Appearance: Mild Distress - INFECTION CONTROL TRAVEL OUTSIDE OF THE [place] IN LAST 30 DAYS: No - HEENT HEENT: Atraumatic, Normocephalic - NECK Neck: Normal Inspection, Supple - RESPIRATORY Respiratory: Breath Sounds Normal, No Respiratory Distress - CARDIOVASCULAR Cardiovascular: Regular Rate, Regular Rhythm - MUSCULOSKELETAL/EXTREMETIES Musculoskeletal/Extremeties: Tender - Tenderness on palpation to the right lateral malleus. There is no swelling, there is no obvious deformity noted. Painful range of motion with flexion, eversion and inversion of the right ankle. Left ankle is nontender to palpation. There is pain with flexion extension of the left ankle nontender with eversion and inversion of the left ankle. No ob vious deformity noted over the left ankle. - NEURO Level of Consciousness: Awake, Alert, Appropriate Motor/Sensory: No Motor Deficit, No Sensory Deficit Notes: Positive pedal pulses bilaterally. - DERM Integumentary: Warm, Dry, No Rash Course - Re-evaluation Re-evalutation: 08/28/20 16:06 Reviewed negative x-ray results with patient. Patient never got her Belden that was ordered several hours ago patient refused Belden prior to discharge. States she has her Percocet with her and will take it for her pain. She is able to ambulate with assistance and the use of her cane. She is neurovascularly intact. She was counseled on outpatient follow-up with orthopedics if not improving in 2 to 3 days. On-call physician was provided. Patient was given strict return to the emergency room guidelines. Return for any new or worsening symptoms. All questions were answered. Patient verbalized understanding and agrees with plan of care. 08/28/20 16:12 - Vital Signs Vital signs: Temp Pulse Resp BP Pulse Ox 98.3 F 86 20 129/60 H 95 08/28/20 14:13 08/28/20 14:13 08/28/20 14:13 08/28/20 14:13 08/28/20 14:13 - Diagnostic Test Radiology reviewed: Reports reviewed Discharge - Discharge Clinical Impression: Mild ankle sprain Qualifiers: Encounter type: initial encounter Laterality: right Qualified Code(s): S93.401A - Sprain of unspecified ligament of right ankle, initial encounter Mild sprain of left ankle Qualifiers: Encounter type: initial encounter Qualified Code(s): S93.402A - Sprain of unspecified ligament of left ankle, initial encounter Condition: Stable Disposition: HOME, SELF-CARE Instructions: Sprained Ankle ([facility]) Additional Instructions: Rest, ice, elevate bilateral feet. Weightbearing as tolerated. Continue with your current home chronic narcotic pain medication. Follow-up with orthopedics if not improving in 2 to 3 days. Return to the emergency room for any new or worsening symptoms. Referrals: JONY JEAN-BAPTISTE MD [Primary Care Provider] - Follow up as needed DIANA ALLEN DO [ACTIVE STAFF] - Follow up as needed
== END 2020-08-28 16:17 | disposition home or self-care (01) ==
LOC: ER 13:54
DX: S93.401A Sprain of unspecified ligament of right ankle, initial encounter (principal); S93.402A Sprain of unspecified ligament of left ankle, initial encounter; W19.XXXA Unspecified fall, initial encounter; E11.9 Type 2 diabetes mellitus without complications; G89.29 Other chronic pain; Z79.891 Long term (current) use of opiate analgesic
CPT/HCPCS: 99283

== ENCOUNTER → 2020-09-26 | Outpatient (CLI) | payer BC ==
[2020-09-26 10:31] LABS: ANION GAP 13 (5-19); BLOOD UREA NITROGEN 16 mg/dL (7-20); CALCIUM 10.6 mg/dL (8.4-10.2); CARBON DIOXIDE 20 mmol/L (22-30); CHLORIDE 107 mmol/L (98-107); GLUCOSE 128 mg/dL (75-110); POTASSIUM 4.3 mmol/L (3.6-5.0)
== END ==
LOC: OD 08:55
PROVIDERS: ATTEND Family Medicine
DX: E83.52 Hypercalcemia (principal); E87.5 Hyperkalemia
CPT/HCPCS: 36415; 80048